=== PATIENT | male | born 1960 | race Caucasian/White ===

== ENCOUNTER 2020-08-22 10:18 | Outpatient (REF) | payer OTHER, SELFPAY ==
[2020-08-22 14:20] LABS: Alanine Aminotransferase 29 U/L (0-40); Albumin Level 4.3 g/dL (3.5-5.0); Alkaline Phosphatase 57 U/L (39-117); Anion Gap 13 (12-20); Aspartate Amino Transferase 23 U/L (5-37); Bilirubin Total 0.8 mg/dL (0.0-1.0); Blood Urea Nitrogen 8 mg/dL (9-16); Calcium 8.6 mg/dL (8.4-10.2); Carbon Dioxide 26 mmol/L (22-29); Chloride 103 mmol/L (96-108); Cholesterol 272 mg/dL; Estimated Glomerular Filt Rate > 60; Glucose Fasting 92 mg/dL (60-99); HDL Cholesterol 87 mg/dL; LDL Cholesterol Calculated 170 mg/dl; Potassium 4.1 mmol/l (3.3-5.1); Sodium 138 mmol/L (135-145); Total Protein 6.7 g/dL (6.5-8.0); Triglycerides 78 mg/dL
[2020-08-22 14:26] LABS: Creatinine Urine 36.71 mg/dL; Microalbumin Urine < 5.0 mg/L
[2020-08-22 14:36] LABS: PSA,Total (Free>4and<10) 0.44 ng/mL (0.00-4.00); TSH reflex Free T4 0.53 mIU/mL (0.32-4.0)
== END 2020-08-22 10:19 | disposition home or self-care (01) ==
LOC: HO.WFDLDS 10:18
PROVIDERS: PCP Family Medicine; Visit Provider Family Medicine
DX: Z00.00 Encounter for general adult medical examination without abnormal findings (principal); I10 Essential (primary) hypertension; E78.00 Pure hypercholesterolemia, unspecified; R03.0 Elevated blood-pressure reading, without diagnosis of hypertension; Z12.5 Encounter for screening for malignant neoplasm of prostate
CPT/HCPCS: 80053; 80061; 82043; 84153; 84443

== ENCOUNTER → 2020-12-19 10:41 | Outpatient (BNVA) | payer OTHER, SELFPAY | PROVIDERS: PCP Family Medicine; Visit Provider Nurse Practitioner Family ==

== ENCOUNTER → 2021-01-04 13:55 | Outpatient (REF) | payer OTHER, SELFPAY | LOC: HO.SL 13:55 | PROVIDERS: Visit Provider Nurse Practitioner Family | DX: Z13.89 Encounter for screening for other disorder (principal) ==

== ENCOUNTER 2021-01-27 21:28 | Emergency (ER) | payer OTHER, SELFPAY ==
[2021-01-27 21:32] VITALS: BP 142/97; PULSE 95; RESP 18; TEMP 36.9; O2SAT 93; BMI 25.8
[2021-01-27 22:00] VITALS: RESP 15; O2SAT 98
--- NOTE | 2021-01-27 23:04 | ED.ALCOHOL ---
HPI - Alcohol General Chief Complaint: ETOH/Substance Use Stated Complaint: etoh Time Seen by Provider: 01/27/21 22:56 Source: patient Mode of arrival: ambulatory Limitations: no limitations History of Present Illness HPI narrative: 60 years old male with chronic alcoholic problem, patient has been bingeing drinking alcohol for the past 3 days, family brought the patient to the emergency department seeking for help. Patient appear intoxicated during the interview, but patient declined depression or suicidal ideation. Related Data Home Medications Medication Instructions Recorded Confirmed fluoxetine 20 mg capsule 20 mg PO DAILY 10/03/20 12/19/20 trazodone 100 mg tablet 100 mg PO BEDTIME PRN 10/12/20 12/19/20 Previous Rx's Medication Instructions Recorded hydroxyzine pamoate 50 mg capsule 50 mg PO BID PRN 90 Days #180 cap 09/15/20 lisinopril 20 mg tablet 20 mg PO DAILY 90 Days #90 tab 09/15/20 hydrochlorothiazide 12.5 mg tablet 12.5 mg PO DAILY 90 Days #90 tab 10/03/20 sildenafil 50 mg tablet 50 mg PO DAILY PRN #4 tab 01/16/21 trazodone 100 mg tablet 100 mg PO BEDTIME PRN #30 tab 01/16/21 Allergies Allergy/AdvReac Type Severity Reaction Status Date / Time No Known Allergies Allergy Verified 11/17/20 14:03 [No Known Allergies*] Review of Systems Review of Systems: All other systems are reviewed and are negative Constitutional: Reports as per HPI and Reports no additional constitutional complaints Eyes: Reports as per HPI and Reports no additional eye complaints Reports system reviewed and no additional complaints, except as documented Cardiovascular: Reports as per HPI and Reports no additional cardiovascular complaints Respiratory: Reports as per HPI and Reports no additional respiratory complaints Gastrointestinal: Reports as per HPI and Reports no additional gastrointestinal complaints Genitourinary: Reports no additional female genitourinary complaints Musculoskeletal: Reports no additional musculoskeletal complaints Skin/Breast: Reports system reviewed and no additional complaints, except as docu Psychiatric: Reports no additional psychiatric complaints Endocrine: Reports no additional endocrine complaints Hematologic/Lymphatic: Reports no additional hematologic/lymphatic complaints Allergic/Immunologic: Reports no additional allergic/immunologic complaints Reports system reviewed and no additional complaints, except as documented and Reports Abnormal speech present [facility] Past Medical History Medical History No known health problems Surgical History No pertinent past surgical history Family History Family History Father HTN (hypertension) Cancer History of heart attack Mother No problems noted. Social History Social History Smoking Status: Never smoker Advance Directives: No Advance Directives Information Provided: No Physical Exam Vital Signs: Vital Signs: Last Vital Signs Temp 98.4 F 01/27/21 21:32 Pulse 95 01/27/21 21:32 Resp 18 01/27/21 21:32 BP 142/97 H 01/27/21 21:32 Pulse Ox 93 01/27/21 21:32 Body Mass Index 25.8 Vital signs have been reviewed as appeared to be correct. Blood pressure normal. Heart rate normal. Respiration rate normal. Temperature normal. Oxygen saturation normal. Appearance: Alert.. No acute distress. Head: Normal external exam. Normocephalic. Atraumatic. No Grimaldo signs noted. No raccoon eyes noted Eyes: PERRLA. EOMI. Conjunctiva and sclera normal. Eyelids normal. ENT: TM's Normal. Pharynx normal. Uvula midline. Moist mucous membranes. No trismus noted. No drooling noted. No muffled voice noted. Neck: Normal inspection. Neck supple. FROM. No adenopathy. Thyroid Normal. No meningeal signs. No neck mass noted. CVS: Normal heart rate and rhythm. Heart sound normal. No murmurs noted. Pulses normal throughout. Respiratory: No respiratory distress. Painless inspiration. Breath sounds normal. No wheezes/rales/rhonchi noted. Chest nontender. No accessory muscle usage noted or decreased air movement noted. Abdomen: Soft and nontender. Bowel sounds normal in all 4 quadrants. No distention noted. No organomegaly noted. No visible injury noted. Back: No CVA tenderness. Full range of motion noted. Skin: Skin warm and dry. Normal skin color. Normal skin turgor. No rashes/lesions/lacerations noted. Extremities: No lower extremity edema. Extremities exhibit normal range of motion. Extremities nontender. Neuro: No motor deficit. No sensory deficit. Reflexes normal. Discharge Plan Discharge Prescriptions: No Action trazodone 100 mg tablet 100 mg PO BEDTIME PRNRF: 0 trazodone 100 mg tablet 100 mg PO BEDTIME PRN (Reason: for insomnia) Qty: 30 RF: 0 sildenafil 50 mg tablet 50 mg PO DAILY PRN (Reason: sexual activity) Qty: 4 RF: 1 lisinopril 20 mg tablet 20 mg PO DAILY 90 Days Qty: 90 RF: 4 hydroxyzine pamoate 50 mg capsule 50 mg PO BID PRN (Reason: anxiety) 90 Days Qty: 180 RF: 2 fluoxetine [Prozac] 20 mg capsule 20 mg PO DAILY RF: 0 hydrochlorothiazide 12.5 mg tablet 12.5 mg PO DAILY 90 Days Qty: 90 RF: 2
[2021-01-27 23:33] LABS: Basophils Percent Auto 0.5 % (0-2); Eosinophils Absolute Auto 0.1 X10*3/uL (0.0-0.4); Eosinophils Percent Auto 2.2 % (0-4); Hematocrit 43.4 % (42-52); Hemoglobin 15.2 g/dl (14.0-18.0); Imm Gran Abs Auto 0.03 X10*3/uL (0.00-0.03); Imm Gran Pct Auto 0.5 % (0.0-0.4); Lymphocytes Absolute Auto 1.8 X10*3/uL (1.2-4.9); Lymphocytes Percent Auto 28.9 % (20-40); MANUAL DIFF FLAG NO; Mean Corpuscular Hemoglobin 30.3 pg (27.0-33.0); Mean Corpuscular Volume 86.6 fL (80-98); Mean Platelet Volume 8.4 fL (9.4-12.4); Monocytes Absolute Auto 0.3 X10*3/uL (0.1-1.2); Monocytes Percent Auto 4.8 % (2-11); Neutrophils Percent Auto 63.1 % (45-73); Platelet Count 269 X10*3/uL (160-400); Red Blood Count 5.01 X10*6/uL (4.60-5.80); Red Cell Distribution Width 14.8 % (11.0-16.0); White Blood Count 6.3 X10*3/uL (4.8-10.8)
[2021-01-28] VITALS (7 sets, daily range): BP systolic 138–166; BP diastolic 86–97; PULSE 15–89; RESP 14–18; TEMP 36.4–36.8; O2SAT 92–99
[2021-01-28 00:06] LABS: Alanine Aminotransferase 94 U/L (0-40); Albumin Level 4.5 g/dL (3.5-5.0); Alkaline Phosphatase 74 U/L (39-117); Anion Gap 24 (12-20); Aspartate Amino Transferase 146 U/L (5-37); Bilirubin Direct 0.4 mg/dL (0.0-0.5); Bilirubin Total 0.8 mg/dL (0.0-1.0); Blood Urea Nitrogen 19 mg/dL (9-16); Calcium 7.9 mg/dL (8.4-10.2); Carbon Dioxide 19 mmol/L (22-29); Chloride 94 mmol/L (96-108); Creatinine Clr Calc Pharmacy 117.6; Estimated Glomerular Filt Rate > 60; Glucose Random 103 mg/dL (60-115); Magnesium 2.4 mg/dL (1.6-2.6); Potassium 4.3 mmol/L (3.3-5.1); Sodium 133 mmol/L (135-145); Total Protein 7.4 g/dL (6.5-8.0)
[2021-01-28 00:30] LABS: Lipase 78 U/L (8-78)
[2021-01-28] MEDS: 0.9 % Sodium Chloride 1,000 ML 999 ML IVCONT ×3 (01:04→05:16)
[2021-01-28] MEDS: Thiamine HCL 200 MG/2 ML VIAL 100 MG IVPUSH (01:05)
--- NOTE | 2021-01-28 07:38 | PC.NURSE ---
Linda Ann - - [phone] Pt's states she spoke with Someone at [facility] for detox, Gave contact number from [facility] for a patient assessment when the patient is more alert. .
[2021-01-28 07:43] LABS: Anion Gap 19 (12-20); Blood Urea Nitrogen 15 mg/dL (9-16); Calcium 7.2 mg/dL (8.4-10.2); Carbon Dioxide 19 mmol/L (22-29); Chloride 100 mmol/L (96-108); Creatinine Clr Calc Pharmacy 139.5; Estimated Glomerular Filt Rate > 60; Glucose Random 124 mg/dL (60-115); Potassium 3.7 mmol/L (3.3-5.1); Sodium 134 mmol/L (135-145)
[2021-01-28 09:19] LABS: Ethanol 148 mg/dL
[2021-01-28] MEDS: LORazepam 1 MG TABLET 2 MG PO (12:02)
--- NOTE | 2021-01-28 12:05 | MHC.CARE ---
[place] [facility] [place] around 9pm with reported c/o seeking ETOH detox. Pt has [email or web address] insurance and was held in order to be seen by CARE team. Pt was seen by CARE team this morning due to not having been seen last night. CARE asked for BAL to be drawn also. At 0845 pts BAL was 148. Interview commenced. Pt was somewhat guarded about his goal for tx and was uncertain if he wanted to seek tx. After interview pt stated he as willing to seek formal help via detox tx for his ETOH dependence. Pt stated his (soon to be ex-) has been helping him seek referral for tx and has made him seek tx in the past. Pt stated he feels conflicted and wants to continue to go to work but also is seeing that his life has been impacted greatly by his ETOH dependence. Pts called the ED and provided contact for Sandor (c/o Jama) who is aware of his interest in detox/tx. T/w called Sandor العراقي/o Jama at [phone] phone and fax [phone]) and arranged for phone interview w pt. Pt was provided a phone and interview completed. Due to pts insurance [facility] not able to secure an auth for pt on weekend day, Sandor reported pt can resume this tomorrow morning and pursue tx when they can speak with insurance. Pt can call [facility] himself or ED staff can. Pt was provided a list of referrals for other programs and resources if he wishes to pursue. Pts plan to dc or remain will be based on pts medical necessity.
[2021-01-28] MEDS: ondansetron HCL 4 MG/2 ML VIAL IVPUSH (13:17)
[2021-01-28] MEDS: LORazepam 2 MG/ML VIAL IVPUSH (13:17)
--- NOTE | 2021-01-28 14:40 | PC.NURSE ---
Pt states he is feeling much better at this time. Verbalizes understanding of discharge instructions.
== END 2021-01-28 14:41 | disposition home or self-care (01) ==
PROVIDERS: Nurse Practitioner Family; Emergency Provider Emergency Medicine
DX: F10.220 Alcohol dependence with intoxication, uncomplicated (principal); F10.239 Alcohol dependence with withdrawal, unspecified; Y90.6 Blood alcohol level of 120-199 mg/100 ml; I10 Essential (primary) hypertension
CPT/HCPCS: 36415; 80048; 80076; 80320; 83690; 83735; 85025; 96361; 96374; 96375; 99285; J2060; J2405; J3411

== ENCOUNTER 2021-05-09 08:37 | Outpatient (REF) | payer OTHER, SELFPAY ==
--- NOTE | ~2021-05-09 | US_ITS ---
EXAMINATION: US PELVIS, LIMITED/FOLLOW UP CLINICAL INFORMATION: Inguinal hernia COMPARISON: None TECHNIQUE: Grayscale and color imaging of the left inguinal region using a linear transducer FINDINGS: No hernia is appreciated by ultrasound. There is a small left inguinal lymph node. This measures 2.5 x 0.5 x 0.7 cm sagittal, AP and transverse dimension. This demonstrates normal ultrasound morphology and flow. US/US pelvic limited IMPRESSION: No hernia appreciated by ultrasound.
== END 2021-05-09 08:38 | disposition home or self-care (01) ==
LOC: HO.US 08:37
PROVIDERS: PCP Family Medicine; Visit Provider Family Medicine
DX: K40.90 Unilateral inguinal hernia, without obstruction or gangrene, not specified as recurrent (principal)
CPT/HCPCS: 76857

== ENCOUNTER → 2021-05-14 12:08 | Outpatient (REF) | payer OTHER, SELFPAY | LOC: HO.SL 12:08 | PROVIDERS: PCP Family Medicine; Visit Provider Nurse Practitioner Family | DX: G47.9 Sleep disorder, unspecified (principal); F41.9 Anxiety disorder, unspecified; I10 Essential (primary) hypertension | CPT/HCPCS: 95806 ==

== ENCOUNTER → 2021-05-18 08:43 | Outpatient (BNVA) | payer OTHER, SELFPAY | PROVIDERS: PCP Family Medicine; Referring Provider Family Medicine; Visit Provider Surgery ==

== ENCOUNTER 2021-10-13 11:22 | Outpatient (REF) | payer OTHER, SELFPAY ==
--- NOTE | ~2021-10-13 | XR_ITS ---
EXAMINATION: XR CHEST CLINICAL INFORMATION: Cough. COMPARISON: None TECHNIQUE: 2 views of the chest were obtained. FINDINGS: No significant abnormality is noted involving the heart, lungs, mediastinum, bony thorax or soft tissues. XR/XR chest 2V IMPRESSION: Unremarkable chest examination.
[2021-10-13 13:19] LABS: Anion Gap 15 (12-20); Blood Urea Nitrogen 11 mg/dL (9-16); Calcium 9.3 mg/dL (8.4-10.2); Carbon Dioxide 25 mmol/L (22-29); Chloride 97 mmol/L (96-108); Estimated Glomerular Filt Rate > 60; Glucose Random 94 mg/dL (60-115); Potassium 3.8 mmol/L (3.3-5.1); Sodium 133 mmol/L (135-145)
[2021-10-13 13:23] LABS: Hematocrit 41.8 % (42.0-52.0); Mean Corpuscular HGB Conc 33.5 g/dl (31.0-36.0); Mean Corpuscular Hemoglobin 30.9 pg (27.0-33.0); Mean Corpuscular Volume 92.3 fL (80.0-98.0); Mean Platelet Volume 9.4 fL (9.4-12.4); Platelet Count 186 X10*3/uL (160-400); Red Blood Count 4.53 X10*6/uL (4.60-5.80); Red Cell Distribution Width 14.3 % (11.0-16.0); White Blood Count 5.5 X10*3/uL (4.8-10.8)
== END 2021-10-13 11:23 | disposition home or self-care (01) ==
LOC: HO.HMGCLDS 11:22
PROVIDERS: Visit Provider Physician Assistant
DX: R05.9 Cough, unspecified (principal)
CPT/HCPCS: 36415; 71046; 80048; 85027

== ENCOUNTER 2021-10-13 13:37 | Outpatient (REF) | payer OTHER, SELFPAY ==
[2021-10-13 14:52] LABS: Influenza A PCR NEGATIVE (Negative); Influenza B PCR NEGATIVE (Negative); Resp Syncy Virus RNA Qual PCR NEGATIVE (Negative); SARS COV2 PCR INHOUSE POSITIVE (Negative)
== END 2021-10-13 13:38 | disposition home or self-care (01) ==
LOC: HO.LNP 13:37
PROVIDERS: Visit Provider Physician Assistant
DX: R05.9 Cough, unspecified (principal); Z20.822 Contact with and (suspected) exposure to COVID-19
CPT/HCPCS: 0241U

== ENCOUNTER 2024-01-14 23:15 | Inpatient (IN) | payer OTHER, SELFPAY ==
--- NOTE | ~2024-01-14 | XR_ITS ---
EXAMINATION: XR CHEST CLINICAL INFORMATION: Shortness of breath COMPARISON: Chest radiograph 10/13/2021 CT angiogram of the head and neck at 11:37 PM TECHNIQUE: Frontal view of the chest was obtained. FINDINGS: Heart size upper limits of normal. The aorta is dilated and unfolded. At least on the lowest slice of the CT neck, the ascending aorta measures about 4.3 cm. No aortic dissection is seen on the CT scan. The lungs are clear without infiltrates, effusions or evidence of CHF. XR/XR chest 1V IMPRESSION: 1. No acute intrathoracic disease. 2. Dilated aorta.
--- NOTE | ~2024-01-14 | MR_ITS ---
EXAMINATION: MR BRAIN WITHOUT CONTRAST CLINICAL INFORMATION: Right-sided facial droop. Speech difficulty. COMPARISON: CTA head and neck from 01/14/2024. TECHNIQUE: MRI of the brain was obtained using routine sequences without contrast. FINDINGS: No focal restricted diffusion is demonstrated to suggest acute or subacute cerebral ischemia. No evidence of acute hemorrhagic products on heme-sensitive imaging. Small focus of susceptibility artifact in the paracentral aspect of the left parietal lobe suggestive of petechial microhemorrhage. Scattered periventricular and deep white matter T2 FLAIR hyperintensities consistent with mild underlying microangiopathy. Proportional prominence of the ventricles and sulcal spaces without evidence of obstructive hydrocephalus. No abnormal mass effect. No midline shift. Normal appearance of the pituitary gland. Normal positioning of the cerebellar tonsils. Normal arterial and venous vascular flow voids are present. Normal, homogeneous marrow signal. Mild mucosal thickening of the paranasal sinuses. No signal abnormalities within the mastoids. MR/MR head/brain wo con IMPRESSION: 1. No acute intracranial abnormalities. 2. Mild underlying microangiopathy and generalized cerebral volume loss.
--- NOTE | ~2024-01-14 | US_ITS ---
EXAMINATION: US ABDOMEN LIMITED CLINICAL INFORMATION: Alcohol abuse, elevated LFT. COMPARISON: Abdominal ultrasound 08/24/2010 TECHNIQUE: Real-time imaging of the right upper quadrant abdominal viscera. FINDINGS: PANCREAS: Pancreas was obscured by bowel gas and could not be evaluated LIVER: The liver is enlarged measuring 20.6 cm in greatest length with coarse increased echogenicity consistent with hepatic steatosis. In 2010, liver echogenicity was mildly increased. Portal vein is patent with hepatopedal flow. The liver contour is normal. No focal hepatic lesion. There is no intrahepatic biliary duct dilatation seen. GALLBLADDER: The gallbladder is quite distended without evidence of stones, polyps, wall thickening or pericholecystic fluid. Some gravity dependent echogenic bile is present. COMMON BILE DUCT: Normal in caliber measuring 0.7 cm in diameter. RIGHT KIDNEY: Normal. No hydronephrosis. No renal calculi or focal parenchymal lesions. The kidney measures 12.6 cm in maximum dimension. FREE FLUID: None. US/US abdomen limited IMPRESSION: Enlarged fatty liver.
--- NOTE | ~2024-01-14 | CT_ITS ---
EXAMINATION: CT ANGIOGRAM HEAD CT ANGIOGRAM NECK CLINICAL INFORMATION: Reason for Exam right sided weakness COMPARISON: Same day noncontrast head CT TECHNIQUE: Initial noncontrast mill oiler imaging of the head and neck was performed. Comparison is made with noncontrast head CT from earlier today. Test bolus sequences followed by intravenous administration 75 mL of Omnipaque 350. Helical imaging was performed in the axial plane from the aortic arch to the skull vertex. Delayed postcontrast imaging of the head was also performed. The data was processed at the cytotechnologist workstation for generation of MIP sequences. Angled MIPs and volume rendered reformatted images were also generated at an offline 3D workstation. Stenoses are assessed in accordance with NASCET criteria unless otherwise indicated. DLP: 1626.31 mGy-cm This CT examination was performed using dose optimization techniques as appropriate, variously including the following: *Automated exposure control. *Adjustment of mA and/or kV according to patient size (this includes techniques or standardized protocols for targeted exams where dose is matched to indication/reason for exam; i.e. extremities or head). *Use of iterative reconstruction technique. FINDINGS: CT Head: There is no evidence of acute intracranial hemorrhage or edematous territorial infarction. A few foci of hypoattenuation in the periventricular and deep white matter are consistent with mild microangiopathy. [place]-white matter differentiation is preserved. The ventricles are normal in size and configuration. No evidence for obstructive hydrocephalus. No abnormal mass effect or midline shift. No extra-axial fluid collections. No pathologic intra-axial enhancement or regional oligemia. No acute soft tissue or osseous abnormalities. The mastoid air cells and paranasal sinuses are clear. There is a defect in the anterior nasal septum. CT Neck: The thyroid gland and remaining cervical soft tissues are within normal limits. Multilevel cervical spondylosis. CT Upper Chest: The visualized lung apices and upper mediastinum are within normal limits. There is some layering debris in the trachea. Neck CTA: Technically limited CTA of the neck secondary to motion artifact which obscures portions of the carotid and vertebral arteries. Aortic Arch: Normal contour and caliber. Classic 3 vessel branching pattern of the aortic arch. Great Vessel Origins: No significant stenosis of the branch origins. Right Common Carotid Artery: No focal stenosis or occlusion. Cervical Right Internal Carotid Artery: Normal opacification without focal stenosis or occlusion. Left Common Carotid Artery: No focal stenosis or occlusion. Cervical Left Internal Carotid Artery: Calcific atherosclerotic disease of the carotid bulb and proximal internal carotid artery causing less than 50% stenosis. Cervical Right Vertebral Artery: No focal stenosis or occlusion. Cervical Left Vertebral Artery: Dominant. No focal stenosis or occlusion. Brain CTA: Intracranial Internal Carotid Arteries: No focal stenosis or occlusion. Right Anterior Cerebral Artery: Normal A1 segment. Normal opacification of the distal TRINA segments. Left Anterior Cerebral Artery: Normal A1 segment. Normal opacification of the distal TRINA segments. Anterior Communicating Artery: Normal. Right Middle Cerebral Artery: Normal M1 segment of the MCA without focal stenosis or occlusion. Normal arborization of the distal segments. Left Middle Cerebral Artery: Normal M1 segment of the MCA without focal stenosis or occlusion. Normal arborization of the distal segments. Right Vertebral Artery: Normal V4 segment. Left Vertebral Artery: Normal V4 segment. Basilar Artery: Normal without focal stenosis or occlusion. Normal appearance of the proximal superior cerebellar arteries. Right Posterior Cerebral Artery: Normal P1 segment. Normal opacification of the distal [employer] segments. Left Posterior Cerebral Artery: Normal P1 segment. Normal opacification of the distal [employer] segments. Normal opacification of the superior sagittal, straight, transverse, and sigmoid sinuses. CT/CT angio head neck stroke IMPRESSION: 1. Technically limited CTA of the neck secondary to motion artifact which obscures portions of the carotid and vertebral arteries. Within this limitation, no significant arterial narrowing in the neck is identified. 2. No intracranial arterial high-grade stenosis or large vessel occlusion. Above impression was communicated to Dr. Swift on 01/15/2024 12:12 AM
--- NOTE | ~2024-01-14 | CT_ITS ---
EXAMINATION: CT HEAD WITHOUT CONTRAST (STROKE PROTOCOL) CLINICAL INFORMATION: Stroke protocol. Right-sided weakness. COMPARISON: None available. TECHNIQUE: Contiguous axial imaging was performed from the skull base to vertex without intravenous administration of contrast. This CT examination was performed using dose optimization techniques as appropriate, variously including the following: *Automated exposure control *Adjustment of mA and/or kV according to patient size (this includes techniques or standardized protocols for targeted exams where dose is matched to indication/reason for exam; i.e. extremities or head) *Use of iterative reconstruction technique DLP: 778 mGy-cm FINDINGS: There is cerebral volume loss with prominence of the lateral and the third ventricles. The cortical sulci are widened appropriately. The fourth ventricle and basal cisterns are normally outlined. There is mild bilateral periventricular and central white matter diminished attenuation. There is no acute territorial defect, hemorrhage or midline shift. The extra-axial spaces are unremarkable. Calvarium: Intact. Maxillofacial sinuses and mastoids: Clear as visualized. CT/CT head for stroke IMPRESSION: 1. No acute intracranial process seen. 2. Mild cerebral volume loss with mild chronic small vessel ischemic changes. This critical result was discussed with Dr. Alee Swift at 11:44 PM hours on 01/14/2024. It was ascertained that the content and urgency of the report was understood at the time of direct communication.
[2024-01-14 23:26] LABS: Glucose, Whole Blood 121 mg/dL (60-115)
--- NOTE | 2024-01-14 23:31 | ED_ITS ---
HPI - Neuro Symptoms/Deficit General Chief Complaint: Stroke Stated Complaint: stroke? Time Seen by Provider: 01/14/24 23:18 History of Present Illness HPI Narrative: Patient is a 63-year-old male with a history of alcohol abuse. History of hypertension. History of transient global amnesia. No fever no chills. Patient was drinking at a bar. Was noted to slump over question right-sided weakness change in speech just prior to arrival in the emergency department. Time of onset is proximally 10 30. Patient unable to speak in detail. Appear grossly intoxicated. Moving arms and legs. Related Data Previous Rx's Medication Instructions Recorded sildenafil 50 mg tablet 50 mg PO DAILY PRN sexual activity 01/16/21 #4 tabs fluoxetine 20 mg capsule (Prozac) 20 mg PO DAILY 90 days #90 caps 02/15/21 lisinopril 20 mg tablet 30 mg (1.5 x 20 mg) PO DAILY 90 03/27/21 days #135 tabs azithromycin 250 mg tablet See Rx Instructions PO .COMPLEX #6 10/13/21 tabs benzonatate 200 mg capsule 200 mg PO BID PRN cough 4 days #8 10/13/21 caps codeine 10 mg-guaifenesin 100 mg/5 5 ml PO BEDTIME PRN allergy 10/13/21 mL oral liquid symptoms 5 days #118 mL trazodone 100 mg tablet 100 mg PO BEDTIME PRN for insomnia 11/27/21 #30 tabs Allergies Allergy/AdvReac Type Severity Reaction Status Date / Time No Known Allergies Allergy Verified 01/14/24 23:44 [No Known Allergies*] Review of Systems 2 Review of Systems: Unable to obtain detailed review of systems secondary patient's condition [facility] Past Medical History Medical History No known health problems Surgical History History of umbilical hernia repair Family History Family History Father HTN (hypertension) Cancer History of heart attack Mother No problems noted. Social History Social History Housing: House Alcohol intake: current Alcohol intake frequency: a few times a week Patient Tobacco Use Status: Never used Tobacco Smoked in Last 30 Days: No Use of substances other than those prescribed or required for medical reasons: No Advance Directives: No Advance Directives Information Provided: Yes Current occupational status: retired Physical Exam 2 Vital Signs: Vital Signs: Last Vital Signs Temp 97.8 F 01/15/24 00:41 Pulse 80 01/15/24 00:41 Resp 17 01/15/24 00:41 BP 134/77 01/15/24 00:41 Pulse Ox 96 01/15/24 00:41 O2 Del Method Room Air 01/15/24 00:41 BMI result Body Mass Index 24.9 Appearance: Alert. Oriented X3. No acute distress. Eyes: Pupils equal, round and reactive to light. ENT: Pharynx normal. Neck: Normal inspection. Neck supple. No lymph nodes noted. No crepitus CVS: Normal heart rate and rhythm. Pulses normal. Normal S1 and S2 Respiratory: No respiratory distress. Breath sounds normal. No Wheezing. No rales Abdomen: Soft and nontender. No rigidity. No distention. good BS x4 Skin: Skin warm and dry. Normal skin color. Normal skin turgor. Extremities: No lower extremity edema. Neurovascular intact to all extremities. No Lacerations. No Rash Neuro: Oriented X 3. No motor deficit. No sensory deficit. Moving all extermities. No slurred speech Medications Administered Discontinued Medications Generic Name Dose Route Start Last Admin Trade Name Freq PRN Reason Stop Dose Admin Iohexol 75 ml 01/15/24 00:00 01/15/24 00:00 Iohexol 350 Mg/Ml 100 Ml Infus..Btl IV 01/15/24 00:01 75 ml ONCE ONE Administration Medical Decision Making Medical Decision Making MDM Narrative: Patient well-appearing. Neurologically intact. In no acute distress. Grossly appeared intoxicated. There is no focal weakness appreciated at this time. Patient's old record reviewed. Long history of EtOH in the past. Patient had right-sided weakness that was noticed by EMS noticed by bystander at the bar. Glucose was over 100 there has no evidence for hypoglycemia. My interpretation patient's CT scan of the head was grossly negative for any acute evidence of bleeding. CTA of the head and neck is pending. CTA of the head and neck was grossly negative for any large vessel occlusion. Patient's alcohol level was over 400. He was observed initially with right- sided weakness. Question TIA. He has not in any acute distress. He is moving all extremity at this point. Patient is able to speak. Symptoms more likely related to alcohol. Can not exclude the possibility of TIA. Patient to be admitted for further evaluation. Differential Diagnosis Differential Diagnoses: The differential diagnosis associated with the presentation includes Intracranial bleed, mass, ischemic stroke, TIA, alcohol intoxication Admission/Observation Consideration of admission/observation: Escalation of care including admission/observation considered Consult Healthcare Provider Management of the patient was discussed with: Hospitalist Lab Data [facility] Lab Attestation statement: I reviewed the patient's lab results. 01/15/24 00:18 01/15/24 00:18 Labs: Lab Results 01/14/24 01/15/24 Range/Units 23:18 00:18 WBC 3.4 L (4.8-10.8) X10*3/uL RBC 4.17 L (4.60-5.80) X10*6/uL Hgb 13.5 L (14.0-18.0) g/dl Hct 38.2 L (42.0-52.0) % MCV 91.6 (80.0-98.0) fL MCH 32.4 (27.0-33.0) pg MCHC 35.3 (31.0-36.0) g/dl RDW 13.2 (11.0-16.0) % Plt Count 97 L D (160-400) X10*3/uL MPV 9.5 (9.4-12.4) fL Immature Gran % (Auto) 0.3 (0.0-0.4) % Neut % (Auto) 39.2 L (45-73) % Lymph % (Auto) 50.9 H (20-40) % [place] % (Auto) 7.8 (2-11) % Eos % (Auto) 0.3 (0-4) % Baso % (Auto) 1.5 (0-2) % Lymph # (Auto) 1.8 (1.2-4.9) X10*3/uL [place] # (Auto) 0.3 (0.1-1.2) X10*3/uL Eos # (Auto) 0.0 (0.0-0.4) X10*3/uL Baso # (Auto) 0.1 (0.0-0.2) X10*3/uL Abs Immat Gran (auto) 0.01 (0.00-0.03) X10*3/uL Absolute Neuts (auto) 1.4 L (2.0-8.3) x10*3/uL Absolute Nucleated RBC 0.000 (0.0-0.012) X10*3/uL Nucleated RBC % (auto) 0.0 (0.0-0.2) /100WBC PT 11.6 (11.1-13.3) SEC INR 1.0 (0.9-1.1) APTT 34.5 (26.0-36.8) SEC Sodium 132 L (135-145) mmol/L Potassium 3.6 (3.3-5.1) mmol/L Chloride 98 (96-108) mmol/L Carbon Dioxide 19 L (22-29) mmol/L Anion Gap 19 (12-20) BUN 6 L (9-16) mg/dL Creatinine 0.61 (0.5-1.4) mg/dL Estim Creat Clear Calc 154.1 Estimated GFR > 60 POC Glucose 121 H (60-115) mg/dL Random Glucose 101 (60-115) mg/dL Calcium 8.3 L D (8.4-10.2) mg/dL Phosphorus 3.7 (2.7-4.5) mg/dL Magnesium 2.0 (1.6-2.6) mg/dL Total Creatine Kinase 106 (38-174) U/L Troponin I High Sens < 2.7 (<3.5-35.0) ng/L TSH 1.42 (0.32-4.0) uIU/mL Ethyl Alcohol 469 H* mg/dL Independent Interpretation I performed an independent interpretation of an: EKG and CT Scan (CT scan of the head was grossly negative for any acute evidence of bleeding. CTA of the head and neck was negative for any large vessel occlusion.) Radiology Impression Discussion of test interpretation with radiology: I discussed test interpretation with the radiologist and I have reviewed the radiologist's reading. Radiologist Impression: I discussed the CT scan of the head and also CTA of the head and neck with the radiologist. External Record Review External record reviewed: Inpatient record Previous neurology records reviewed Chronic Conditions Patient?s care impacted by: Hypertension Long history of alcohol abuse Social Determinants Patient?s care significantly limited by Social Determinants of Health including: Alcoholism and drug addiction in family NIH Stroke Scale Internal: Initial- Upon Arrival Time: 23:32 Level of Consciousness: Alert Level of Consciousness Questions: Answers both questions correctly Level of Consciousness Commands: Performs both tasks correctly Best Gaze: Normal Visual: No visual loss Facial Palsy: Normal Motor Arm (Right): No drift Motor Arm (Left): No drift Motor Leg (Right): No drift Motor Leg (Left): No drift Limb Ataxia: Absent Sensory: Normal Best Language: No aphasia Dysarthia: Normal Extinction and Inattention: No abnormality Score: 0 Critical Care Time Critical Care Time Critical Care Time: Yes Total Critical Care Time: 40 Attestation: I have personally provided 40 minutes of critical care time exclusive of time spent on separately billable procedures. ?Time includes review of lab data, radiology results, discussion with consultants, and monitoring for potential decompensation. ?Interventions were performed as documented above Discharge Plan Discharge Clinical Impression: Alcohol intoxication, Brain TIA Patient Disposition: Admitted As Inpatient
[2024-01-14 23:44] VITALS: BP 136/85; PULSE 80; PULSE 89; RESP 20; TEMP 36.6; O2SAT 95; BMI 24.9
--- NOTE | 2024-01-14 23:50 | PC.NURSE ---
pt asim from local bar presenting with stroke like symptoms. pt noted to have slight right sided facial droop and being non verbal upon ems arrival to scene. upon arrival, pt stopped at CT, at bedside to assess pt. pt notably weak x4 extremities, unable to speak. upon entering CT, pt reports he had multiple drinks at the bar. pt taken to CT and CT preformed. EMS placed bilateral 18G IVs. pt alert and answering questions for this RN at this time. pt unable to state where he is but is able to state name and date of .
[2024-01-15] VITALS (9 sets, daily range): BP systolic 97–150; BP diastolic 70–95; PULSE 68–101; RESP 12–20; TEMP 36.4–37; O2SAT 92–97; BMI 23.6
[2024-01-15] MEDS: iohexoL 350 MG/ML 100 ML INFUS..BTL 75 ML IV
[2024-01-15 00:22] LABS: MANUAL DIFF FLAG NO
[2024-01-15 00:26] LABS: Basophils Absolute Auto 0.1 X10*3/uL (0.0-0.2); Basophils Percent Auto 1.5 % (0-2); Eosinophils Percent Auto 0.3 % (0-4); Hematocrit 38.2 % (42.0-52.0); Hemoglobin 13.5 g/dl (14.0-18.0); Imm Gran Abs Auto 0.01 X10*3/uL (0.00-0.03); Imm Gran Pct Auto 0.3 % (0.0-0.4); Lymphocytes Absolute Auto 1.8 X10*3/uL (1.2-4.9); Lymphocytes Percent Auto 50.9 % (20-40); Mean Corpuscular HGB Conc 35.3 g/dl (31.0-36.0); Mean Corpuscular Hemoglobin 32.4 pg (27.0-33.0); Mean Corpuscular Volume 91.6 fL (80.0-98.0); Mean Platelet Volume 9.5 fL (9.4-12.4); Monocytes Absolute Auto 0.3 X10*3/uL (0.1-1.2); Monocytes Percent Auto 7.8 % (2-11); Neutrophils Absolute Auto 1.4 x10*3/uL (2.0-8.3); Neutrophils Percent Auto 39.2 % (45-73); Red Blood Count 4.17 X10*6/uL (4.60-5.80); Red Cell Distribution Width 13.2 % (11.0-16.0); White Blood Count 3.4 X10*3/uL (4.8-10.8)
[2024-01-15 00:29] LABS: Platelet Count 97 X10*3/uL (160-400)
[2024-01-15 00:35] LABS: Prothrombin Time 11.6 SEC (11.1-13.3)
[2024-01-15 00:37] LABS: Partial Thromboplastin Time 34.5 SEC (26.0-36.8)
[2024-01-15 00:42] LABS: Stroke Lab Use COMPLETE
[2024-01-15 00:50] LABS: Anion Gap 19 (12-20); Blood Urea Nitrogen 6 mg/dL (9-16); Calcium 8.3 mg/dL (8.4-10.2); Carbon Dioxide 19 mmol/L (22-29); Chloride 98 mmol/L (96-108); Creatinine Clr Calc Pharmacy 154.1; Estimated Glomerular Filt Rate > 60; Ethanol 469 mg/dL; Glucose Random 101 mg/dL (60-115); Phosphorus 3.7 mg/dL (2.7-4.5); Potassium 3.6 mmol/L (3.3-5.1); Sodium 132 mmol/L (135-145)
[2024-01-15 00:53] LABS: Troponin-I High Sensitivity < 2.7 ng/L (<3.5-35.0)
[2024-01-15 01:04] LABS: Thyroid Stimulating Hormone 1.42 uIU/mL (0.32-4.0)
--- NOTE | 2024-01-15 01:09 | ECG_ITS ---
Test Reason : CP Blood Pressure : / mmHG Vent. Rate : 087 BPM Atrial Rate : 087 BPM P-R Int : 136 ms QRS Dur : 084 ms QT Int : 380 ms P-R-T Axes : 119 -11 019 degrees QTc Int : 457 ms Normal sinus rhythm Nonspecific T wave abnormality Abnormal ECG When compared with ECG of 17-AUG-2010 08:45, ST no longer elevated in Anterolateral leads Nonspecific T wave abnormality, worse in Inferior leads Nonspecific T wave abnormality now evident in Anterolateral leads Referred By: Alee Swift Electronically Signed By:MONROE CHAVARRIA
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
[2024-01-15] MEDS: Dextrose 5 % and 0.9 % NaCl 1,000 ML 100 ML IVCONT ×2 (02:49→15:15)
--- NOTE | 2024-01-15 02:53 | PC.NURSE ---
pt standing at bedside with steady gait, pt denies dizziness, shortness of breath and pain. urine sample obtained and sent to lab.
[2024-01-15 02:59] LABS: Alanine Aminotransferase 133 U/L (0-40); Albumin Level 3.5 g/dL (3.5-5.0); Alkaline Phosphatase 180 U/L (39-117); Aspartate Amino Transferase 271 U/L (5-37); Bilirubin Direct 0.6 mg/dL (0.0-0.5); Bilirubin Total 0.9 mg/dL (0.0-1.0); Total Protein 6.9 g/dL (6.5-8.0)
[2024-01-15] MEDS: 0.9 % Sodium Chloride 500 ML 999 ML IV (03:04)
[2024-01-15 03:05] LABS: Appearance Urine Clear; Color Urine Yellow; Glucose Urine UA Negative (Negative); Leukocyte Esterase Urine Negative (Negative); Nitrite Urine Negative (Negative); Urine Blood Negative (Negative); Urine Ketones Trace mg/dL (Negative); Urine Protein Negative (Neg-Trace)
[2024-01-15 03:13] LABS: Amphetamine Screen Urine Not Detected (Not Detect); Barbiturates, Urine Not Detected (Not Detect); Benzodiazepines Screen Urine Not Detected (Not Detect); Cannabinoid Screen Urine Not Detected (Not Detect); Cocaine Screen Urine Not Detected (Not Detect); Fentanyl, urine Not Detected (Not Detect); Opiate Screen Urine Not Detected (Not Detect); Phencyclidine Screen Urine Not Detected (Not Detect)
[2024-01-15] MEDS: Aspirin Enteric Coated 81 MG TABLET.DR 162 MG PO (03:13)
--- NOTE | 2024-01-15 03:15 | PC.NURSE ---
pt pass nursing swallow screen at this time. pt medicated per dec, tolerated well with water.
--- NOTE | 2024-01-15 04:38 | PC.NURSE ---
provider aware of blood pressure, no new orders at this time.
[2024-01-15 05:26] LABS: MANUAL DIFF FLAG NO
[2024-01-15 05:28] LABS: Basophils Absolute Auto 0.1 X10*3/uL (0.0-0.2); Basophils Percent Auto 1.5 % (0-2); Eosinophils Percent Auto 0.3 % (0-4); Hematocrit 37.4 % (42.0-52.0); Hemoglobin 12.9 g/dl (14.0-18.0); Imm Gran Abs Auto 0.01 X10*3/uL (0.00-0.03); Imm Gran Pct Auto 0.3 % (0.0-0.4); Lymphocytes Absolute Auto 1.8 X10*3/uL (1.2-4.9); Lymphocytes Percent Auto 53.4 % (20-40); Mean Corpuscular HGB Conc 34.5 g/dl (31.0-36.0); Mean Corpuscular Volume 92.8 fL (80.0-98.0); Mean Platelet Volume 9.3 fL (9.4-12.4); Monocytes Absolute Auto 0.3 X10*3/uL (0.1-1.2); Monocytes Percent Auto 7.4 % (2-11); Neutrophils Absolute Auto 1.3 x10*3/uL (2.0-8.3); Neutrophils Percent Auto 37.1 % (45-73); Red Blood Count 4.03 X10*6/uL (4.60-5.80); Red Cell Distribution Width 13.2 % (11.0-16.0); White Blood Count 3.4 X10*3/uL (4.8-10.8)
[2024-01-15 05:29] LABS: Platelet Count 82 X10*3/uL (160-400)
[2024-01-15 05:46] LABS: Alanine Aminotransferase 126 U/L (0-40); Albumin Level 3.4 g/dL (3.5-5.0); Alkaline Phosphatase 160 U/L (39-117); Anion Gap 18 (12-20); Aspartate Amino Transferase 249 U/L (5-37); Bilirubin Total 0.8 mg/dL (0.0-1.0); Blood Urea Nitrogen 6 mg/dL (9-16); Calcium 8.1 mg/dL (8.4-10.2); Carbon Dioxide 23 mmol/L (22-29); Chloride 102 mmol/L (96-108); Creatinine Clr Calc Pharmacy 144.6; Estimated Glomerular Filt Rate > 60; Glucose Random 91 mg/dL (60-115); Potassium 3.9 mmol/L (3.3-5.1); Sodium 139 mmol/L (135-145); Total Protein 6.7 g/dL (6.5-8.0)
[2024-01-15 07:15] LABS: Glucose, Whole Blood 91 mg/dL (60-115)
[2024-01-15] MEDS: Folic Acid 1 MG TABLET PO (08:11)
[2024-01-15] MEDS: Multivitamin TABLET 1 TAB PO (08:11)
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
--- NOTE | 2024-01-15 08:38 | PHA.MEDREC ---
Pharmacy Consult ? Medication Reconciliation Pharmacy has completed the medication reconciliation. Tried to call patients Son but voicemail box is full. Spoke to patient who stated he is on no medications which matches with his empty claim history.
--- NOTE | 2024-01-15 09:34 | P.PNIM_ITS ---
Subjective Subjective Date of Service: 01/15/24 Interval History: no focal motor deficit, feeling jittery Physical Exam 2 Vital Signs: Vital Signs: Last Vital Signs Temp 97.6 F 01/15/24 08:10 Pulse 68 01/15/24 08:10 Resp 16 01/15/24 08:10 BP 137/92 H 01/15/24 08:10 Pulse Ox 97 01/15/24 08:10 O2 Del Method Room Air 01/15/24 08:10 BMI result Body Mass Index 24.9 General: AO X 3, no acute distress, anxious Resp: CTA bilateral, no accessory muscles used CVS: S1,S2,RRR GI: soft, non tender, non distended Neuro: motor grossly intact, alert, tremulous Psych: appropriate affect, appropriate insight Objective Data Active Medications Aspirin (Aspirin Enteric Coated 81 Mg Tablet.Dr) 81 mg PO DAILY [facility] Folic Acid (Folic Acid 1 Mg Tablet) 1 mg PO DAILY [facility] Last Admin: 01/15/24 08:11 Dose: 1 mg Documented By: DOROTHEA Dextrose/Sodium Chloride (D5ns) 1,000 mls @ 100 mls/hr IVCONT .Q10H [facility] Last Admin: 01/15/24 02:49 Dose: 100 mls/hr Documented By: FELICIA Multivitamins/Vitamin C (Multivitamin Tablet) 1 tab PO DAILY [facility] Last Admin: 01/15/24 08:11 Dose: 1 tab Documented By: DOROTHEA Pharmacy Consult (Consult Rx Etoh Phenob Im/Po) 1 each MISCELLANE ONCE PRN; Protocol PRN Reason: Consult order Sodium Chloride (0.9 % Sodium Chloride Flush 3 Ml Syringe) 3 ml IVFLUSH QSHIFT [facility] Last Admin: 01/15/24 07:07 Dose: Not Given Documented By: DOROTHEA Non-Admin Reason: See Note Thiamine HCl (Thiamine Hcl 100 Mg Tablet) 100 mg PO DAILY [facility] Labs 01/15/24 04:55 01/15/24 04:55 Labs: Laboratory Results - last 24 hr 01/14/24 01/15/24 01/15/24 23:18 00:18 02:55 MCV 91.6 MCH 32.4 MCHC 35.3 RDW 13.2 Plt Count 97 L D MPV 9.5 Immature Gran % (Auto) 0.3 Neut % (Auto) 39.2 L Lymph % (Auto) 50.9 H [place] % (Auto) 7.8 Eos % (Auto) 0.3 Baso % (Auto) 1.5 Lymph # (Auto) 1.8 [place] # (Auto) 0.3 Eos # (Auto) 0.0 Baso # (Auto) 0.1 Abs Immat Gran (auto) 0.01 Absolute Neuts (auto) 1.4 L Absolute Nucleated RBC 0.000 Nucleated RBC % (auto) 0.0 PT 11.6 INR 1.0 APTT 34.5 Anion Gap 19 Estim Creat Clear Calc 154.1 Estimated GFR > 60 POC Glucose 121 H Random Glucose 101 Calcium 8.3 L D Phosphorus 3.7 Magnesium 2.0 Total Bilirubin 0.9 Direct Bilirubin 0.6 H AST 271 H ALT 133 H Alkaline Phosphatase 180 H Total Creatine Kinase 106 Troponin I High Sens < 2.7 Total Protein 6.9 Albumin 3.5 TSH 1.42 Urine Color Yellow Urine Appearance Clear Urine pH 6.0 Ur Specific [place] 1.020 Urine Protein Negative Urine Glucose (UA) Negative Urine Ketones Trace Urine Blood Negative Urine Nitrite Negative Ur Leukocyte Esterase Negative Urine Opiates Screen Not Detected Urine Fentanyl Screen Not Detected Ur Barbiturates Screen Not Detected Ur Phencyclidine Scrn Not Detected Ur Amphetamines Screen Not Detected U Benzodiazepines Scrn Not Detected Urine Cocaine Screen Not Detected U Marijuana (THC) Screen Not Detected Ethyl Alcohol 469 H* 01/15/24 01/15/24 04:55 07:04 MCV 92.8 MCH 32.0 MCHC 34.5 RDW 13.2 Plt Count 82 L MPV 9.3 L Immature Gran % (Auto) 0.3 Neut % (Auto) 37.1 L Lymph % (Auto) 53.4 H [place] % (Auto) 7.4 Eos % (Auto) 0.3 Baso % (Auto) 1.5 Lymph # (Auto) 1.8 [place] # (Auto) 0.3 Eos # (Auto) 0.0 Baso # (Auto) 0.1 Abs Immat Gran (auto) 0.01 Absolute Neuts (auto) 1.3 L Absolute Nucleated RBC 0.000 Nucleated RBC % (auto) 0.0 PT INR APTT Anion Gap 18 Estim Creat Clear Calc 144.6 Estimated GFR > 60 POC Glucose 91 Random Glucose 91 Calcium 8.1 L Phosphorus Magnesium 2.0 Total Bilirubin 0.8 Direct Bilirubin AST 249 H ALT 126 H Alkaline Phosphatase 160 H Total Creatine Kinase Troponin I High Sens Total Protein 6.7 Albumin 3.4 L TSH Urine Color Urine Appearance Urine pH Ur Specific [place] Urine Protein Urine Glucose (UA) Urine Ketones Urine Blood Urine Nitrite Ur Leukocyte Esterase Urine Opiates Screen Urine Fentanyl Screen Ur Barbiturates Screen Ur Phencyclidine Scrn Ur Amphetamines Screen U Benzodiazepines Scrn Urine Cocaine Screen U Marijuana (THC) Screen Ethyl Alcohol Assessment and Plan (1) Essential hypertension: Status: Acute Plan 63M PMH etoh dependence, htn presented with aphasia and right facial droop aphasia and right facial droop resolved, rule out tia, check mri etoh dependence with withdrawal, pancytoprnia phenobarb, ciwa follow up abd us mild acute etoh hepatitis monitor, etoh cessation dvt prophylaxis - mechanical due to thrombocytopenia full code reason for continued hospitalization:withdrawal ongoing Quality Stroke Does the patient have a stroke diagnosis?: No VTE Prior VTE?: No VTE Risk Level:: Medical - moderate - high VTE Device Contraindication: Treatment Not Indicated VTE Drug Contraindication: N/A - Med Ordered
[2024-01-15] MEDS: PHENobarbitaL sodium 130 MG/ML IM ONCE 278 MG IM (11:10)
[2024-01-15 11:37] LABS: Glucose, Whole Blood 89 mg/dL (60-115)
[2024-01-15] MEDS: PHENobarbitaL sodium 130 MG/ML VIAL IM Q3Hx2 208 MG IM ×2 (14:14→16:39)
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
[2024-01-15] MEDS: 0.9 % Sodium Chloride Flush 3 ML SYRINGE IVFLUSH (16:40)
[2024-01-15] MEDS: PHENobarbitaL 15 MG TABLET 45 MG PO (20:54)
[2024-01-15] MEDS: Melatonin 3 MG TABLET 6 MG PO (20:58)
--- NOTE | 2024-01-16 01:23 | PC.NURSE ---
Assumed care of patient at 19:00 (01/14). Pt seen on s4. Pt is A&Ox4. On CIWA with po phenobarb protocol. Seizure precautions in place. Denies c/p, sob, n/v, pain. No distress noted. Breathing is even and unlabored without distress on RA. Continues on continuous spo2 monitoring as ordered. Bed alarm on and high-falls risk safety measures in place. See shift assessment, tasks, and MAR for full details. Handoff report given to oncoming RN at 23:00.
[2024-01-16] MEDS: Dextrose 5 % and 0.9 % NaCl 1,000 ML 100 ML IVCONT (02:30)
[2024-01-16] MEDS: 0.9 % Sodium Chloride Flush 3 ML SYRINGE IVFLUSH (02:33)
[2024-01-16 03:47] VITALS: BP 121/86; PULSE 76; RESP 18; TEMP 36.3; O2SAT 96
[2024-01-16 07:05] VITALS: BP 137/90; PULSE 73; RESP 18; TEMP 36.3; O2SAT 95
[2024-01-16 07:24] LABS: Prothrombin Time 12.2 SEC (11.1-13.3)
[2024-01-16 07:25] LABS: Hematocrit 36.3 % (42.0-52.0); Hemoglobin 12.7 g/dl (14.0-18.0); Mean Corpuscular Hemoglobin 32.6 pg (27.0-33.0); Mean Corpuscular Volume 93.1 fL (80.0-98.0); Mean Platelet Volume 9.8 fL (9.4-12.4); Platelet Count 79 X10*3/uL (160-400); Red Cell Distribution Width 13.2 % (11.0-16.0); White Blood Count 2.6 X10*3/uL (4.8-10.8)
[2024-01-16 07:37] LABS: Alanine Aminotransferase 125 U/L (0-40); Albumin Level 3.2 g/dL (3.5-5.0); Alkaline Phosphatase 153 U/L (39-117); Anion Gap 14 (12-20); Aspartate Amino Transferase 281 U/L (5-37); Bilirubin Direct 1.2 mg/dL (0.0-0.5); Bilirubin Total 2.4 mg/dL (0.0-1.0); Blood Urea Nitrogen 3 mg/dL (9-16); Calcium 8.4 mg/dL (8.4-10.2); Carbon Dioxide 25 mmol/L (22-29); Chloride 99 mmol/L (96-108); Creatinine Clr Calc Pharmacy 132.4; Estimated Glomerular Filt Rate > 60; Glucose Fasting 105 mg/dL (60-99); Magnesium 1.6 mg/dL (1.6-2.6); Potassium 3.6 mmol/L (3.3-5.1); Sodium 134 mmol/L (135-145); Total Protein 6.3 g/dL (6.5-8.0)
[2024-01-16] MEDS: Folic Acid 1 MG TABLET PO (08:54)
[2024-01-16] MEDS: Multivitamin TABLET 1 TAB PO (08:54)
[2024-01-16] MEDS: Aspirin Enteric Coated 81 MG TABLET.DR PO (08:54)
[2024-01-16] MEDS: PHENobarbitaL 15 MG TABLET 45 MG PO (08:54)
[2024-01-16] MEDS: Thiamine HCL 100 MG TABLET PO (08:55)
--- NOTE | 2024-01-16 11:08 | PM.DS ---
DS: Providers Provider Date of Service: 01/16/24 Date of admission: 01/15/24 02:24 Primary care physician: Julio Duran MD Consults: 01/16/24 09:42 Addiction Medicine Routine Consulting Provider: Addiction Covering Reason for consultation: alcohol use disorder DS: Diagnosis Discharge Diagnosis (1) Alcohol intoxication: Status: Acute DS: Summary Hospital Course Hospital Course: Denny Ann is a 63 years old man with past medical history significant for alcohol abuse, transient global amnesia and hypertension was brought to the emergency department via EMS from a bar with symptoms concerning for stroke including being nonverbal and slight right-sided facial droop. Last time he was well known was at 10:45 PM (last night). The patient was found by ED provider to be intoxicated and unable to speak to him. The patient is now awake, alert and oriented x3 and said that he drinks at least 12 beers daily. He denied any headache, focal weakness, speech difficulty, nausea, vomiting or abdominal pain. He also denies shortness on breath or cough. Denies fever or chills. He denied tobacco smoking or illicit drug use. He stated that he has not taking any of his home medications. In the ED, he was found to have stable vital signs. His NIH score is 0. Blood workup showed pancytopenia: 3.4/13.5/97. There is hyponatremia of 132, CO2 19. Renal function is normal and there are no significant electrolyte imbalances. TSH and troponin are normal. ETOH level is 469. LFTs are not available. Hospital course: Patient was admitted with phenobarb protocol for alcohol withdrawal. Mild aphasia which was present during admission resolved and was likely due to alcohol intoxication. MRI of the head/brain without any acute abnormality. Patient states he no longer feels that he is having withdrawal and wants to go home. Patient is hemodynamically stable prior to discharge. Ultrasound of the abdomen was obtained for elevated transaminases which showed fatty liver. Elevated transaminases and thrombocytopenia likely due to alcohol use. Counseled regarding cessation. Patient will be discharged with prescription for thiamine, folic acid. Status at Discharge Functional status at discharge: independent ambulation Overall status at discharge: patient is back to baseline Time Attestation Total time managing care of this patient today: 29 mintues. Discharge Coordination Time (in mins): Twenty-nine Quality: Safe Use of Opioids Does Pt have an Active Cancer Diagnosis on the Problem List?: No Quality: Stroke Does the patient have a stroke diagnosis?: No Physical Exam Vital Signs: Vital Signs: Last Vital Signs Temp 97.4 F 01/16/24 07:05 Pulse 73 01/16/24 07:05 Resp 18 01/16/24 07:05 BP 137/90 H 01/16/24 07:05 Pulse Ox 95 01/16/24 07:05 O2 Del Method Room Air 01/16/24 07:05 BMI result Body Mass Index 23.6 Middle-aged male lying in bed in no distress Neck supple, no JVD Regular rate and rhythm, S1-S2 heard Regular breath sounds bilaterally, no wheezing or crackles appreciated Abdomen soft nontender, no guarding, no rigidity Patient is awake, alert and oriented to self, place, time and person ; no aphasia, no facial droop Psych: Normal mood No pedal edema DS: Data Data Completed and Pending Labs on day of discharge: Laboratory Results - last 24 hr 01/15/24 01/16/24 11:32 06:56 WBC 2.6 L RBC 3.90 L Hgb 12.7 L Hct 36.3 L MCV 93.1 MCH 32.6 MCHC 35.0 RDW 13.2 Plt Count 79 L MPV 9.8 Absolute Nucleated RBC 0.000 Nucleated RBC % (auto) 0.0 PT 12.2 INR 1.0 Sodium 134 L Potassium 3.6 Chloride 99 Carbon Dioxide 25 Anion Gap 14 BUN 3 L Creatinine 0.71 Estim Creat Clear Calc 132.4 Estimated GFR > 60 POC Glucose 89 Fasting Glucose 105 H Calcium 8.4 Magnesium 1.6 Total Bilirubin 2.4 H Direct Bilirubin 1.2 H AST 281 H ALT 125 H Alkaline Phosphatase 153 H Total Protein 6.3 L Albumin 3.2 L Imaging Chest x-ray: Radiologist's impression: ITS Impressions Head CT 01/14/24 23:44 IMPRESSION: 1. No acute intracranial process seen. 2. Mild cerebral volume loss with mild chronic small vessel ischemic changes. This critical result was discussed with Dr. Alee Swift at 11:44 PM hours on 01/14/2024. It was ascertained that the content and urgency of the report was understood at the time of direct communication. Chest X-Ray 01/14/24 23:48 IMPRESSION: 1. No acute intrathoracic disease. 2. Dilated aorta. Head/Neck CTA 01/15/24 00:00 IMPRESSION: 1. Technically limited CTA of the neck secondary to motion artifact which obscures portions of the carotid and vertebral arteries. Within this limitation, no significant arterial narrowing in the neck is identified. 2. No intracranial arterial high-grade stenosis or large vessel occlusion. Above impression was communicated to Dr. Swift on 01/15/2024 12:12 AM Abdomen Ultrasound 01/15/24 07:35 IMPRESSION: Enlarged fatty liver. Brain MRI 01/15/24 13:10 IMPRESSION: 1. No acute intracranial abnormalities. 2. Mild underlying microangiopathy and generalized cerebral volume loss. Discharge Plan Discharge Anticipated Discharge Date/Time: 01/16/24 12:12 Patient Disposition: Home, Self-Care Discharge Diagnosis: Alcohol use disorder Referrals: Julio Duran MD [Primary Care Provider] - 1 Week Discharge Medications: New aspirin [Adult Low Dose Aspirin] 81 mg tablet,delayed release (DR/EC) 81 mg PO DAILY Qty: 30 0RF folic acid 1 mg Tablet 1 mg PO DAILY 30 Days Qty: 30 0RF thiamine HCl (vitamin B1) 50 mg tablet 100 mg PO DAILY 30 Days Qty: 60 0RF Discharge Orders: Discharge Order (Routine); Ordered 01/16/24 Ordered By: Mary Smith Diet: Advance to usual diet Activity on Discharge: As tolerated Stand Alone Forms: Patient Portal Discharge page Care Plan Goals: Follow-up with PCP within 1 week Health Concerns: Alcohol use disorder Elevated transaminases Thrombocytopenia Plan of Treatment: Thiamine 100 mg daily Folic acid 1 mg daily Aspirin 81 mg daily Alcohol cessation Assessment: As above
[2024-01-16 11:10] VITALS: BP 130/89; PULSE 79; RESP 18; TEMP 36.3; O2SAT 97
--- NOTE | 2024-01-16 11:28 | MHC.CM.PN ---
PT MEDICALLY CLEARED FOR DC HOME SELF CARE, PT TO ARRANGE TRANSPORT.
[2024-01-16 12:00] VITALS: BP 107/61; PULSE 62; RESP 18; TEMP 37.1; O2SAT 97
== END 2024-01-16 12:30 | disposition home or self-care (01) | DRG 775 ==
LOC: HO.ED 01-15 01:11 → HO.EDOVER 01-15 02:27 → HO.IMC 01-15 14:18
PROVIDERS: Internal Medicine; Admitting Provider Internal Medicine; Emergency Provider Emergency Medicine Emergency Medical Services; PCP Family Medicine; Visit Provider Student in an Organized Health Care Education/Training Program
DX: F10.239 Alcohol dependence with withdrawal, unspecified (principal); F10.229 Alcohol dependence with intoxication, unspecified; D61.818 Other pancytopenia; E87.0 Hyperosmolality and hypernatremia; R47.01 Aphasia; K70.10 Alcoholic hepatitis without ascites; R29.810 Facial weakness; Y90.8 Blood alcohol level of 240 mg/100 ml or more; I10 Essential (primary) hypertension; E87.1 Hypo-osmolality and hyponatremia; K76.0 Fatty (change of) liver, not elsewhere classified
CPT/HCPCS: 36415; 70450; 70496; 70498; 70551; 71045; 76705; 80048; 80053; 80076; 80307; 81003; 82550; 82947; 83735; 84100; 84443; 84484; 85025; 85027; 85610; 85730; 93005; 99285; J2560; J3411; Q9967

== ENCOUNTER → 2024-01-15 01:09 | Outpatient (BNV) | payer OTHER, SELFPAY | PROVIDERS: Admitting Provider Internal Medicine; Emergency Provider Emergency Medicine Emergency Medical Services; PCP Family Medicine; Visit Provider Internal Medicine | DX: R07.9 Chest pain, unspecified (principal) | CPT/HCPCS: 93010 ==

== ENCOUNTER → 2024-01-15 02:24 | Outpatient (BNV) | payer OTHER, SELFPAY | PROVIDERS: Admitting Provider Internal Medicine; Emergency Provider Emergency Medicine Emergency Medical Services; Visit Provider Internal Medicine | DX: G45.9 Transient cerebral ischemic attack, unspecified (principal); I10 Essential (primary) hypertension; F10.920 Alcohol use, unspecified with intoxication, uncomplicated; D61.818 Other pancytopenia; K70.10 Alcoholic hepatitis without ascites | CPT/HCPCS: 99223; 99238; 99499 ==

== ENCOUNTER 2024-08-23 10:08 | Inpatient (IN) | payer OTHER, SELFPAY ==
[2024-08-23] VITALS (14 sets, daily range): BP systolic 84–130; BP diastolic 60–83; PULSE 89–126; RESP 11–18; TEMP 36.2–36.8; O2SAT 94–99; BMI 24.6
--- NOTE | 2024-08-23 | ECG_ITS ---
Test Reason : tachycardia Blood Pressure : / mmHG Vent. Rate : 098 BPM Atrial Rate : 098 BPM P-R Int : 158 ms QRS Dur : 064 ms QT Int : 364 ms P-R-T Axes : -23 -18 012 degrees QTc Int : 464 ms Normal sinus rhythm Low voltage QRS Inferior infarct , age undetermined Cannot rule out Anterior infarct , age undetermined Abnormal ECG When compared with ECG of 15-JAN-2024 01:12, Inferior infarct is now Present Nonspecific T wave abnormality no longer evident in Anterior leads Referred By: Generic ED Physician Electronically Signed By:MONROE CHAVARRIA
--- NOTE | ~2024-08-23 | CT_ITS ---
EXAMINATION: CT ABDOMEN AND PELVIS WITHOUT CONTRAST CLINICAL INFORMATION: Abdominal pain. COMPARISON: Right upper quadrant ultrasound January 15, 2024 TECHNIQUE: Multidetector volumetric imaging was performed from the superior aspect of the liver through the pubic symphysis. Sagittal and coronal reformatted images were obtained on the technologist's workstation. This CT examination was performed using dose optimization techniques as appropriate, variously including the following: *Automated exposure control *Adjustment of mA and/or kV according to patient size (this includes techniques or standardized protocols for targeted exams where dose is matched to indication/reason for exam; i.e. extremities or head) *Use of iterative reconstruction technique DLP: 673 mGy-cm FINDINGS: LUNG BASES: No pleural or pericardial effusion. LIVER, GALLBLADDER, AND BILIARY TREE: The liver is markedly decreased in attenuation and enlarged. No focal hepatic lesion or biliary ductal dilatation is present. Possible sludge in the distended gallbladder. Large ascites. Hepatic vasculature is patent. PANCREAS: No ductal dilatation. SPLEEN: Not enlarged. ADRENAL GLANDS: No adrenal mass. KIDNEYS AND URETERS: The kidneys are symmetric in size. No hydronephrosis. No perinephric stranding. BLADDER: Unremarkable. GASTROINTESTINAL TRACT: Diffuse small and large bowel wall thickening and submucosal edema possibly related to surrounding ascites. No small bowel obstruction. ABDOMINAL WALL: Small bilateral fat-containing inguinal hernias. LYMPH NODES: No bulky lymphadenopathy. VASCULAR: Normal caliber abdominal aorta. PELVIC VISCERA: Unremarkable. OSSEOUS STRUCTURES: No destructive bone lesions. CT/CT abdomen pelvis wo IV con IMPRESSION: Diffuse small and large bowel wall thickening possibly related to surrounding ascites. Infectious and inflammatory etiologies cannot be excluded. Advise clinical correlation. Severe hepatic steatosis and hepatomegaly. Large ascites. Possible sludge in the gallbladder. Electronically signed by: Dashawn Paniagua MD 08/23/2024 12:26 PM EDT
--- NOTE | ~2024-08-23 | CT_ITS ---
EXAMINATION: CT ABDOMEN PELVIS WITHOUT IV CONTRAST, CT CHEST WITHOUT IV CONTRAST CLINICAL INFORMATION: Worsening abdominal distention. Obtunded on oxygen. Suspect aspiration pneumonitis. COMPARISON: Chest radiograph 08/23/2024. CT head 08/29/2024. Abdominal ultrasound 08/23/2024. CT abdomen and pelvis 08/23/2024. TECHNIQUE: Unenhanced CT of the chest, abdomen and pelvis. Intravenous Contrast: None This CT examination was performed using dose optimization techniques as appropriate, variously including the following: *Automated exposure control *Adjustment of mA and/or kV according to patient size (this includes techniques or standardized protocols for targeted exams where dose is matched to indication/reason for exam; i.e. extremities or head) *Use of iterative reconstruction technique DLP: 252 mGy-cm chest DLP: 919 mGy-cm abd/pelvis FINDINGS: Chest: Mild bibasilar posterior dependent compressive atelectasis of the lungs is identified. No pulmonary consolidation noted. Mild retained secretions are noted within the distal thoracic trachea and within the right mainstem bronchus. Moderate coronary artery calcific atherosclerosis is noted primarily within the left anterior descending coronary artery. Normal heart size. No pericardial thickening or pericardial fluid collections. No thoracic wall inflammatory changes. Note, images of the chest are suboptimal secondary to motion artifact. No suspicious skeletal lesions of the chest identified. Partial visualization is made of an enteric tube coursing within the esophagus. CT abdomen and pelvis: Liver: The liver is enlarged measuring 24 cm in transaxial dimension. No focal parenchymal lesions of the liver noted. No pneumobilia or portal venous gas identified. Gallbladder and biliary system: Linear hyperdensity is present within the lumen of the gallbladder may represent vicarious excretion of previously administered injuring his contrast agent. No radiodense cholelithiasis definitively visualized. No biliary duct dilatation noted. Pancreas: Normal. Spleen: Normal. Kidneys: Normal. Urinary bladder: Rosado catheter terminates within the urinary bladder. Punctate nondependent foci of gas are present in the urinary bladder. Gastrointestinal system: Rectal tube is noted. Diffuse dilatation of the colon is present to a diameter of up to 7 cm. Gas-fluid levels are present within the colon and findings suspicious for pneumatosis intestinalis of the colon are present as manifest by gas visualized to best advantage in the areas of adjacent fluid within the colon suggestive of gas within the wall of the colon. Pneumatosis is visualized adjacent to areas of gas containing intestinal segments 2. Findings are visualized to best advantage with appropriate windowing (for example series 3 image 64 within the ascending colon). Multifocal tubular foci of gas are noted which appear to track within the colonic venous system and within the transverse mesocolon. Additionally gas is noted within the left common femoral vein and within a subcutaneous vessel which appears to meet again with the left inferior epigastric vein. A mild-moderate quantity of scattered free intraperitoneal fluid is present (7 Hounsfield units). The quantity of free intraperitoneal fluid is similar findings present 08/23/2024. The terminal ileum is normal in appearance (series 3 image 69). Small bowel is normal in caliber. No small bowel pneumatosis intestinalis identified. Normal appearance of the stomach. Enteric tube terminates within the second portion the duodenum. Close scrutiny of the abdomen and pelvis demonstrates no definitive free intraperitoneal gas. Scattered ectopic foci of gas is noted above appear to track within the vessels and no definitive free intraperitoneal gas noted. No large bowel mural thickening noted. Abdominal wall: No abdominal wall hernias noted. Genitourinary system: Normal appearance of the prostate and seminal vesicles. Lymphovascular structures: Scattered calcific atherosclerosis. Normal abdominal aortic caliber. No abdominal or pelvic lymphadenopathy. Gas within multiple venous structures as detailed above. Osseous structures: No suspicious skeletal abnormalities noted. Marked L4-L5 intervertebral disc space narrowing and probable vacuum phenomenon associated with a partially visualized disc extrusion with caudal extension at the level of L4-L5. CT/CT abdomen pelvis wo IV con Impression: Unenhanced CT of the chest, abdomen and pelvis: *Diffuse abnormal dilatation of the colon to a diameter of 7 cm associated with pneumatosis coli and intravenous gas within the colonic venous system. Multiple foci of gas are noted within the colonic veins of the transverse mesocolon. Additionally, intravenous gas is noted within the left common femoral vein and a cutaneous branch of the left inferior epigastric vein. These findings may indicate colonic ischemia in the setting of toxic megacolon. Pneumatosis coli and colonic venous gas are suspicious for ischemia but may also be seen in association with nonischemic colonic dilatation and infectious/inflammatory conditions of the colon. No free intraperitoneal gas noted. A mild-moderate quantity of low density free intraperitoneal fluid is present and similar findings present on the comparison CT of 08/23/2024. A rectal tube terminates in the rectosigmoid region. *Mild bibasilar compressive atelectasis of the lungs. No evidence of aspiration pneumonia/pneumonitis. *Focal calcific atherosclerosis of the left anterior descending coronary artery. *Hepatomegaly. This result with particular regards to findings suspicious for possible colonic ischemia was discussed with Lazaro YEE by telephone at 08/30/2024 5:13AM EST and it was ascertained that the content and urgency of the report was understood at the time of direct communication. Mr. Betts conveyed that surgery would be consulted regarding possible bowel ischemia. Electronically signed by: Kenrick Felton MD 08/30/2024 05:25 AM TIAN
--- NOTE | ~2024-08-23 | CT_ITS ---
EXAMINATION: CT HEAD WITHOUT CONTRAST CLINICAL INFORMATION: Encephalopathy. COMPARISON: None available. TECHNIQUE: Contiguous axial imaging was performed from the skull base to vertex without intravenous administration of contrast. This CT examination was performed using dose optimization techniques as appropriate, variously including the following: *Automated exposure control *Adjustment of mA and/or kV according to patient size (this includes techniques or standardized protocols for targeted exams where dose is matched to indication/reason for exam; i.e. extremities or head) *Use of iterative reconstruction technique DLP: 1180 mGy-cm FINDINGS: There is no acute intra-axial, extra-axial bleed, masses or midline shift. There is no acute infarction in evolution. There is diffuse periventrical hypodensity in both cerebral hemispheres. The lateral ventricles are symmetrical in size and configuration without enlargement. Bone windows reveal no calvarial abnormality. There is no scalp soft tissue abnormality. Paranasal sinuses and mastoid air cells are well-aerated. CT/CT head/brain wo IV con IMPRESSION: 1. No acute intracranial process seen. 2. Age-related cerebral volume loss with chronic small vessel ischemic changes. Electronically signed by: Imtiaz Rust MD 08/29/2024 03:16 PM TIAN
--- NOTE | ~2024-08-23 | XR_ITS ---
EXAMINATION: XR CHEST CLINICAL INFORMATION: Chest pain. COMPARISON: January 14, 2024 TECHNIQUE: Frontal view of the chest was obtained. FINDINGS: Low lung volumes. No focal consolidation. No pleural effusion. Left hemidiaphragm is elevated. Cardiac silhouette is unchanged. Tortuous and dilated thoracic aorta unchanged from prior. XR/XR chest 1V IMPRESSION: No acute abnormality. Electronically signed by: Dashawn Paniagua MD 08/23/2024 12:06 PM EDT
--- NOTE | ~2024-08-23 | US_ITS ---
EXAMINATION: US ABDOMEN LIMITED CLINICAL INFORMATION: Hepatitis. COMPARISON: Ultrasound abdomen January 15, 2024. CT scan abdomen pelvis August 23, 2024 TECHNIQUE: Real-time imaging of the right upper quadrant abdominal viscera. Color Doppler exam was used FINDINGS: Exam limited due to bowel gas. Motion joint study degrading Doppler examination. PANCREAS: Obscured by bowel gas LIVER: Liver is enlarged right lobe of liver measures 21.5 cm. The liver contour is normal. Diffuse increased echogenicity of the parenchyma of liver. The umbilical vein is recannulized. There is ascites anterior to liver. No focal hepatic lesion. There is no intrahepatic biliary duct dilatation seen. Vascular flow in the middle portal vein is hepatopedal however the vascular has low velocity. GALLBLADDER: Echogenic bile. There is no gallstone. Small volume of pericholecystic fluid this is probably related to the abdominal ascites. Hypoechoic wall suggesting fluid in the wall of the wall however the gallbladder wall is not thickened measuring 0.4 cm. The gallbladder is distended to a length of 10.5 cm. Negative ultrasound Jewell's sign. COMMON BILE DUCT: Normal in caliber measuring 0.4 cm in diameter. RIGHT KIDNEY: Normal. No hydronephrosis. No renal calculi or focal parenchymal lesions. The kidney measures 12.5 cm in maximum dimension. FREE FLUID: None. US/US abdomen limited IMPRESSION: 1. Hepatomegaly. Diffuse increased echogenicity of the liver parenchyma. Recannulized umbilical vein. Ascites. 2. Echogenic bile in the gallbladder. No gallstone. Small volume of pericholecystic fluid which is related to abdominal ascites. Hypoechoic wall suggesting fluid in the wall of the gallbladder however the gallbladder wall is not thickened. Negative ultrasound Jewell's sign. 3. No bile duct dilatation. Electronically signed by: Luis Angel Romero MD 08/23/2024 04:46 PM EDT
--- NOTE | ~2024-08-23 | XR_ITS ---
EXAMINATION: XR CHEST CLINICAL INFORMATION: NG tube COMPARISON: Chest radiograph dated 08/15/2024 TECHNIQUE: Frontal view of the chest was obtained. FINDINGS: Interval placement of endogastric tube with tip projecting in the right upper quadrant. Low lung volumes. Elevation of the left hemidiaphragm. Left basilar atelectasis. No focal consolidation. No pulmonary edema, pleural effusion, or pneumothorax. Enlarged cardiomediastinal silhouette is likely projectional. Unobstructed bowel gas pattern. XR/XR chest 1V IMPRESSION: 1. Interval placement of endogastric tube with tip projecting in the right upper quadrant. 2. Low lung volumes, elevation of the left hemidiaphragm, and left basilar atelectasis. Electronically signed by: Mimi cShofield MD 08/29/2024 02:48 PM TIAN CEDENO
--- NOTE | ~2024-08-23 | XR_ITS ---
EXAMINATION: XR CHEST CLINICAL INFORMATION: Status post intubation. COMPARISON: CT chest 08/29/2024. TECHNIQUE: Frontal view of the chest was obtained. FINDINGS: An endotracheal tube terminates 4 cm superior to the gerri. A right internal jugular catheter terminates in projection with the inferior aspect of the superior vena cava. Enteric tube courses in projection with the stomach beyond the inferior margin of the field of view. Low lung volumes are present. Making allowances for low lung volumes, grossly normal pattern of pulmonary vasculature is noted. No effusions or pneumothoraces identified. XR/XR chest 1V IMPRESSION: 1. Endotracheal tube terminating 4 cm superior to the gerri. 2. Right internal jugular catheter terminating within the inferior aspect of the superior vena cava. 3. Enteric tube coursing within the stomach. 4. Low lung volumes. Electronically signed by: Kenrick Felton MD 08/30/2024 06:46 AM TIAN
--- NOTE | ~2024-08-23 | CT_ITS ---
EXAMINATION: CT HEAD WITHOUT CONTRAST CLINICAL INFORMATION: Subdural hematoma. COMPARISON: MRI brain January 15, 2024 CT head January 14, 2024 TECHNIQUE: Contiguous axial imaging was performed from the skull base to vertex without intravenous administration of contrast. This CT examination was performed using dose optimization techniques as appropriate, variously including the following: *Automated exposure control *Adjustment of mA and/or kV according to patient size (this includes techniques or standardized protocols for targeted exams where dose is matched to indication/reason for exam; i.e. extremities or head) *Use of iterative reconstruction technique DLP: 716 mGy-cm FINDINGS: There is no evidence of acute intracranial hemorrhage or large evolving territorial infarction. No mass effect or midline shift is seen. Mild periventricular and subcortical white matter hypoattenuation most likely representing chronic microangiopathic changes. No extra-axial fluid collections are identified. No hydrocephalus. The osseous structures and soft tissues are intact. The mastoid air cells and visualized portions of the paranasal sinuses are well aerated. CT/CT head/brain wo IV con IMPRESSION: No acute intracranial abnormality. Electronically signed by: Dashawn Paniagua MD 08/23/2024 12:14 PM EDT
[2024-08-23 10:48] LABS: MANUAL DIFF FLAG NO
[2024-08-23 10:56] LABS: Basophils Percent Auto 0.2 % (0-2); Eosinophils Absolute Auto 0.1 X10*3/uL (0.0-0.4); Eosinophils Percent Auto 0.9 % (0-4); Imm Gran Abs Auto 0.04 X10*3/uL (0.00-0.03); Imm Gran Pct Auto 0.7 % (0.0-0.4); Lymphocytes Absolute Auto 0.5 X10*3/uL (1.2-4.9); Lymphocytes Percent Auto 8.8 % (20-40); Mean Corpuscular HGB Conc 37.5 g/dl (31.0-36.0); Mean Corpuscular Hemoglobin 35.2 pg (27.0-33.0); Mean Corpuscular Volume 93.8 fL (80.0-98.0); Mean Platelet Volume 9.5 fL (9.4-12.4); Monocytes Absolute Auto 0.7 X10*3/uL (0.1-1.2); Monocytes Percent Auto 13.1 % (2-11); Neutrophils Absolute Auto 4.3 x10*3/uL (2.0-8.3); Neutrophils Percent Auto 76.3 % (45-73); Platelet Count 140 X10*3/uL (160-400); Red Blood Count 3.41 X10*6/uL (4.60-5.80); White Blood Count 5.6 X10*3/uL (4.8-10.8)
--- NOTE | 2024-08-23 11:08 | ED_ITS ---
HPI - General Adult General Chief complaint: General Medical Stated complaint: Jaundice/Urinary issues Time Seen by Provider: 08/23/24 11:09 Source: patient Mode of arrival: ambulatory Limitations: no limitations History of Present Illness HPI narrative: This is a 63 years old male with history of alcohol abuse presented to the emergency department with jaundice weakness malaise, he was brought here by the sister Onset (ago): day(s) (1) Radiation: non-radiation Severity: moderate Pain Consistency: constant Relieving factors: none Exacerbating factors: none Related Data Home Medications ?Medication ?Instructions ?Recorded ?Confirmed No Known Home Meds 08/23/24 08/23/24 Allergies Allergy/AdvReac Type Severity Reaction Status Date / Time No Known Allergies Allergy Verified 08/23/24 10:33 [No Known Allergies*] Review of Systems 2 Constitutional: Constitutional: Reports no additional constitutional complaints ENT: Reports system reviewed and no additional complaints, except as documented Respiratory: Respiratory: Reports no additional respiratory complaints PMFSH Past Medical History PMFSH Narrative: Alcohol abuse, hypertension Medical History No known health problems Surgical History History of umbilical hernia repair Family History Family History Father HTN (hypertension) Cancer History of heart attack Mother No problems noted. Social History Social History Household Members: Family Household Members Other:: With Son Housing: House Do you presently have visiting nurse or other home services: No Alcohol intake: current Alcohol intake frequency: 3 or more drinks per day Patient Tobacco Use Status: Never used Tobacco Smoked in Last 30 Days: No Use of substances other than those prescribed or required for medical reasons: No Advance Directives: No Advance Directives Information Provided: Yes Do you have a plan to hurt others: No Plan Nutrition Risks: No Nutritional Risk Current occupational status: retired Physical Exam ED Vital Signs: Vital Signs - 24 hr 08/23/24 10:28 08/23/24 11:11 08/23/24 12:00 Temperature 98.3 F Pulse Rate 107 H 126 H 101 H Respiratory Rate 18 12 13 Blood Pressure 110/82 130/81 113/80 Pulse Oximetry 99 98 97 Oxygen Delivery Method Room Air Room Air Room Air BMI result Body Mass Index 24.6 No distress Const General: cooperative Nutritional Appearance: average body habitus Orientation/consciousness: patient oriented x3 HENMT Other: Jaundice present General nose exam: Normal external nose present Face and sinus: Yes normal facial exam Eyes Other: Jaundice Alignment and Position: alignment normal Periorbital: periorbital findings normal Chest Chest palpation & inspection: normal inspection of the chest Resp Effort & Inspection: normal respiratory effort Auscultation: clear to auscultation bilaterally Cardio Jugular venous distension: no JVD Rate: regular rate Rhythm: regular rhythm GI Inspection: Yes normal to inspection Palpation (GI): Soft to palpation, not firm and nontender Auscultation: normal bowel sounds Neuro General: patient oriented x3 Course Reevaluation(s) Reevaluation #1: Patient has severe hyponatremia 118 he will be admitted to the intensive care unit nephrology consult was obtained in the emergency department Medications Administered Generic Name Dose Route Start Last Admin Trade Name Freq PRN Reason Stop Dose Admin Chlordiazepoxide HCl 25 mg 08/23/24 12:45 08/23/24 12:50 Chlordiazepoxide Hcl 25 Mg Capsule PO 25 mg BID LESLY Administration Enoxaparin Sodium 40 mg 08/23/24 12:30 08/23/24 12:50 Enoxaparin Sodium 40 Mg/0.4 Ml Syringe SUBCUT 40 mg Q24H LESLY Administration Famotidine 20 mg 08/23/24 12:45 08/23/24 12:50 Famotidine/Pf 20 Mg/2 Ml Vial IVPUSH 20 mg BID LESLY Administration Lactated Ringer's 1,000 mls @ 60 mls/hr 08/23/24 13:00 08/23/24 13:09 Lr IVCONT 60 mls/hr .[id number] LESLY Administration Discontinued Medications Generic Name Dose Route Start Last Admin Trade Name Freq PRN Reason Stop Dose Admin Lactulose 20 gm 08/23/24 12:31 08/23/24 12:50 Lactulose 20 Gm/30 Ml Solution PO 08/23/24 12:32 20 gm BID ONE Administration Phenobarbital Sodium 350 mg 08/23/24 12:00 08/23/24 11:38 Phenobarbital Sodium 130 Mg/Ml Im Once IM 08/23/24 12:01 350 mg ONCE ONE Administration Protocol Medical Decision Making Medical Decision Making [facility] [place] Narrative: Patient presented with jaundice multiple falls as well we will check labs head CT Differential Diagnosis Differential Diagnoses: The differential diagnosis associated with the presentation includes Alcoholic look hepatitis /obstructive jaundice Admission/Observation Consideration of admission/observation: Escalation of care including admission/observation considered Consult Healthcare Provider renal and ICU attending Lab Data [facility] [place] Lab Attestation statement: I reviewed the patient's lab results. 08/23/24 10:44 08/23/24 12:43 Labs: Lab Results 08/23/24 Range/Units 10:44 WBC 5.6 (4.8-10.8) X10*3/uL RBC 3.41 L (4.60-5.80) X10*6/uL Hgb 12.0 L (14.0-18.0) g/dl Hct 32.0 L (42.0-52.0) % MCV 93.8 (80.0-98.0) fL MCH 35.2 H (27.0-33.0) pg MCHC 37.5 H (31.0-36.0) g/dl RDW 15.0 (11.0-16.0) % Plt Count 140 L D (160-400) X10*3/uL MPV 9.5 (9.4-12.4) fL Immature Gran % (Auto) 0.7 H (0.0-0.4) % Neut % (Auto) 76.3 H (45-73) % Lymph % (Auto) 8.8 L (20-40) % Richardson % (Auto) 13.1 H (2-11) % Eos % (Auto) 0.9 (0-4) % Baso % (Auto) 0.2 (0-2) % Lymph # (Auto) 0.5 L (1.2-4.9) X10*3/uL Richardson # (Auto) 0.7 (0.1-1.2) X10*3/uL Eos # (Auto) 0.1 (0.0-0.4) X10*3/uL Baso # (Auto) 0.0 (0.0-0.2) X10*3/uL Abs Immat Gran (auto) 0.04 H (0.00-0.03) X10*3/uL Absolute Neuts (auto) 4.3 (2.0-8.3) x10*3/uL Absolute Nucleated RBC 0.000 (0.0-0.012) X10*3/uL Nucleated RBC % (auto) 0.0 (0.0-0.2) /100WBC Sodium 118 L* (135-145) mmol/L Potassium 4.0 (3.3-5.1) mmol/L Chloride 82 L (96-108) mmol/L Carbon Dioxide 20 L (22-29) mmol/L Anion Gap 20 (12-20) BUN 5 L (9-16) mg/dL Creatinine 0.63 (0.5-1.4) mg/dL Estim Creat Clear Calc 147.3 Estimated GFR > 60 Random Glucose 87 (60-115) mg/dL Calcium 8.0 L (8.4-10.2) mg/dL Total Bilirubin 13.0 H (0.0-1.0) mg/dL Direct Bilirubin 8.4 H (0.0-0.5) mg/dL AST 394 H (5-37) U/L ALT 119 H (0-40) U/L Alkaline Phosphatase 314 H (39-117) U/L Total Protein 6.8 (6.5-8.0) g/dL Albumin 2.9 L (3.5-5.0) g/dL Lipase 43 (8-78) U/L Independent Interpretation I performed an independent interpretation of an: Plain X-Ray Interpretation: I reviewed the head CT no acute disease I reviewed the chest x-ray no pneumonia I reviewed the CT interpreted myself as ascites Radiology Impression Discussion of test interpretation with radiology: I have reviewed the radiologist's reading. Radiologist Impression: midline shift is seen. Mild periventricular and subcortical white matter hypoattenuation most likely representing chronic microangiopathic changes. No extra-axial fluid collections are identified. No hydrocephalus. The osseous structures and soft tissues are intact. The mastoid air cells and visualized portions of the paranasal sinuses are well aerated. CT/CT head/brain wo IV con IMPRESSION: No acute intracranial abnormality. Electronically signed by: Dashawn Paniagua MD 08/23/2024 12:14 PM EDT Dictated By: Chudga Independent Historian Clinical information obtained from an independent historian. History obtained from or confirmed by: Other (sister) Chronic Conditions Patient?s care impacted by: Other (Alcohol abuse) Social Determinants Patient?s care significantly limited by Social Determinants of Health including: Alcoholism and drug addiction in family Critical Care Time Critical Care Time Critical Care Time: Yes Total Critical Care Time: 90 Attestation: Hyponatremia, tachycardic the patient is speaking with the family speaking with the Nephrology consult and ICU team Discharge Plan Discharge Clinical Impression: Acute hyponatremia, Jaundice, Acute alcoholic hepatitis Ascites Qualifiers: Ascites type: due to alcoholic cirrhosis Qualified Code(s): K70.31 - Alcoholic cirrhosis of liver with ascites Patient Disposition: Admitted As Inpatient
[2024-08-23 11:09] LABS: Alanine Aminotransferase 119 U/L (0-40); Albumin Level 2.9 g/dL (3.5-5.0); Alkaline Phosphatase 314 U/L (39-117); Aspartate Amino Transferase 394 U/L (5-37); Bilirubin Direct 8.4 mg/dL (0.0-0.5); Blood Urea Nitrogen 5 mg/dL (9-16); Creatinine Clr Calc Pharmacy 147.3; Estimated Glomerular Filt Rate > 60; Glucose Random 87 mg/dL (60-115); Lipase 43 U/L (8-78); Total Protein 6.8 g/dL (6.5-8.0)
[2024-08-23 11:23] LABS: Anion Gap 20 (12-20); Carbon Dioxide 20 mmol/L (22-29); Chloride 82 mmol/L (96-108); Sodium 118 mmol/L (135-145)
[2024-08-23] MEDS: PHENobarbitaL sodium 130 MG/ML IM ONCE 350 MG IM (11:38)
--- NOTE | 2024-08-23 12:44 | PHA.MEDREC ---
Addendum entered by Danielle Baca [facility] 08/23/24 13:45: reviewed Addendum entered by Danielle Baca RP 08/23/24 13:41: REVIEWED Original Note: Pharmacy Consult ? Medication Reconciliation Pharmacy has completed the medication reconciliation. Patient confirmed he is not taking any medications OTC or Prescription steiner.
[2024-08-23] MEDS: Famotidine/PF 20 MG/2 ML VIAL IVPUSH ×2 (12:50→20:35)
[2024-08-23] MEDS: Enoxaparin Sodium 40 MG/0.4 ML SYRINGE SUBCUT (12:50)
[2024-08-23] MEDS: Lactulose 20 GM/30 ML SOLUTION PO (12:50)
[2024-08-23] MEDS: chlordiazePOXIDE HCl 25 MG CAPSULE PO ×2 (12:50→20:35)
--- NOTE | 2024-08-23 12:57 | P.CONNP_ITS ---
History of Present Illness Reason for Consult Consult date: 08/23/24 Chief Complaint Chief complaint: hyponatremia History of Present Illness Narrative: Pt is a 64 y/o male with a medical history of EToH abuse (states drinks 8-10 beers daily), hypertension, hx of transient global amnesia. Nephrology consulted for hyponatremia (sodium 118). He presents to the 08/23 he states because I'm jaundiced. He states this has not occurred before. He states he is urinating without pain/difficulty, last void was this a.m. He denies abdominal pain, difficulty breathing, chest pain He has significant purpura on all extremities, face- he states I fall a lot and this has been going on for some time. he states his urine has been dark in color for a few weeks now Sodium 118 on 08/23 at 10:44 creatinine 0.63 on 08/23 arrival total bilirubin 13, direct 8.4, AST/ALT 394 and 119 He has had a chronic anemia since December 2023 with thrombocytopenia since December 2023 CT abd/pelvis 08/23: kidneys/ureters/bladder unremarkable. No hydronephrosis. Also shows severe hepatic steatosis and hepatomegaly with large ascites, in addition to diffuse small and large bowel wall thickening. Review of Systems Constitutional: Reports fatigue Denies dizziness Cardiovascular: Denies chest pain, Reports leg edema, Denies lightheadedness and Denies dyspnea Respiratory: Denies dyspnea Gastrointestinal: Denies abdominal pain, Denies diarrhea, Denies nausea and Denies vomiting Genitourinary: Denies hematuria, Denies oliguria and Denies dysuria Comments: reports ongoing nocturia and dark colored urine over last few weeks Musculoskeletal: Denies back pain Skin/Breast: Reports unusual bruising and Reports jaundice Denies dizziness Endocrine: Reports fatigue PMFSH Past Medical History Medical History No known health problems Family History Family History Father HTN (hypertension) Cancer History of heart attack Mother No problems noted. Surgical History Surgical History History of umbilical hernia repair Social History Social History Household Members: Family Household Members Other:: With Son Housing: House Do you presently have visiting nurse or other home services: No Alcohol intake: current Alcohol intake frequency: 3 or more drinks per day Patient Tobacco Use Status: Never used Tobacco Current occupational status: retired Meds Allergies Allergy/AdvReac Type Severity Reaction Status Date / Time No Known Allergies Allergy Verified 08/23/24 10:33 [No Known Allergies*] Active Medications: Current Medications Chlordiazepoxide HCl (Chlordiazepoxide Hcl 25 Mg Capsule) 25 mg PO BID [facility] Last Admin: 08/23/24 12:50 Dose: 25 mg Enoxaparin Sodium (Enoxaparin Sodium 40 Mg/0.4 Ml Syringe) 40 mg SUBCUT Q24H [facility] Last Admin: 08/23/24 12:50 Dose: 40 mg Famotidine (Famotidine/Pf 20 Mg/2 Ml Vial) 20 mg IVPUSH BID [facility] Last Admin: 08/23/24 12:50 Dose: 20 mg Ondansetron HCl (Ondansetron Hcl 4 Mg/2 Ml Vial) 4 mg IVPUSH Q8H PRN PRN Reason: Nausea and Vomiting Pharmacy Consult (Consult Rx Etoh Phenob Im/Po) 1 each MISCELLANE ONCE PRN; Protocol PRN Reason: Consult order Phenobarbital Sodium (Phenobarbital Sodium 65 Mg/Ml Vial) 65 mg IM ONCE PRN PRN Reason: Alcohol Withdrawal Prednisolone Sodium Phosphate (Prednisolone Sodium Phosphate 15 Mg/5 Ml Solution) 40 mg PO DAILY [facility] Home Medications ?Medication ?Instructions ?Recorded ?Confirmed ?Last Taken ?Type No Known Home Meds 08/23/24 08/23/24 Unknown History Physical Exam Vital Signs: Last Vital Signs Temp 98.3 F 08/23/24 10:28 Pulse 101 H 08/23/24 12:00 Resp 13 08/23/24 12:00 BP 113/80 08/23/24 12:00 Pulse Ox 97 08/23/24 12:00 O2 Del Method Room Air 08/23/24 12:00 BMI result Body Mass Index 24.6 Const General: no acute distress, alert and awake Resp Effort & Inspection: normal respiratory effort and able to speak in complete sentences Auscultation: clear to auscultation bilaterally Cardio Rate: regular rate Rhythm: regular rhythm Heart sounds: S1 normal heart sound present and S2 normal heart sound present GI Inspection: Yes distended Palpation (GI): Soft to palpation and nontender Percussion: Yes dullness to percussion (suprapubic dullness) Other: suprapubic dullness to percussion General: Yes no CVA tenderness Back/Spine/Pelvis Back: no CVA tenderness Skin General skin exam: jaundice, purpura (significant purpura and scabbing in all four extremities ) and scars Rashes: rashes noted (significant purpura and scabbing in all four extremities ) Neuro Other: no tremors General: moves all extremities Extrem General: Yes edema (+1-+2 BLE edema ) and Yes pedal edema Results Lab Results 08/23/24 10:44 08/23/24 10:44 Lab results: Chemistry 08/23/24 10:44 Sodium 118 L* Potassium 4.0 Carbon Dioxide 20 L BUN 5 L Creatinine 0.63 Calcium 8.0 L Hematology 08/23/24 10:44 WBC 5.6 Hgb 12.0 L Plt Count 140 L D Assessment and Plan (1) Acute hyponatremia: Status: Acute Plan Hyponatremia most likely secondary to beer potomania Will check stat serum sodium now and in 2 hours to assess for sodium trend Will check urine sodium, protein and creatinine Will also check hepatitis panel Ordered LR at 60mL/hr infusion for slow hyponatremia correction, will adjust pending serum sodium levels Will continue to closely monitor Discussed with Dr Wooten Procedures Date of Service Date of Service: 08/23/24
[2024-08-23 13:01] LABS: Sodium 118 mmol/L (135-145)
[2024-08-23] MEDS: Lactated Ringers 1,000 ML 60 ML IVCONT (13:09)
[2024-08-23 15:44] LABS: Sodium 119 mmol/L (135-145)
--- NOTE | 2024-08-23 16:18 | P.HPCC_ITS ---
History of Present Illness Date of Service: 08/23/24 Chief Complaint: jaundice 64-year-old gentleman with past medical history of alcohol abuse disorder, history of possible TIA admitted to the hospital in December for the same presents to the ED from his home as he noticed jaundice. He states it is acute in onset and he saw it today, nonprogressive, not associated with any other symptoms. He denies vomiting, denies diarrhea, denies fever, denies cough. He states he has been having scrambled eggs and nolan for breakfast, sandwich for lunch and dinner and also drinks coffee and tea. He drinks about 10-12 beer everyday for the past several years, last night he drank only 3-4 beers. He denies any other new complaints Review of Systems 2 Constitutional: Constitutional: Denies body ache(s) and Denies daytime sleepiness Eyes: Eyes: Denies exophthalmos and Denies change in vision ENT: Denies Normal hearing present and Denies bleeding gums Cardiovascular: Cardiovascular: Denies Abdominal Cramping after Meds and Denies Abdominal Distension Respiratory: Respiratory: Denies change in phlegm color, Denies chest congestion and Denies cough Gastrointestinal: Gastrointestinal: Denies belching and Denies melena Genitourinary: Genitourinary: Denies change in libido and Denies hematuria Musculoskeletal: Musculoskeletal: Denies myalgias and Denies atrophy Integumentary/Breasts: Skin/Breast: Denies bleeding lesions and Denies breast swelling Neurologic: Denies Normal hearing present and Denies behavioral changes Psychiatric: Psychiatric: Denies behavioral changes and Denies change in libido Endocrine: Endocrine: Denies change in libido and Denies deepening of the voice PMFSH Past Medical History Medical History No known health problems Family History Family History Father HTN (hypertension) Cancer History of heart attack Mother No problems noted. Surgical History Surgical History History of umbilical hernia repair Social History Social History Household Members: Family Household Members Other:: Son Housing: House Do you presently have visiting nurse or other home services: No Alcohol intake: current Alcohol intake frequency: 3 or more drinks per day Patient Tobacco Use Status: Never used Tobacco Current occupational status: retired Meds Allergies Allergy/AdvReac Type Severity Reaction Status Date / Time No Known Allergies Allergy Verified 08/23/24 10:33 [No Known Allergies*] Active Medications: Current Medications Chlordiazepoxide HCl (Chlordiazepoxide Hcl 25 Mg Capsule) 25 mg PO BID [facility] Last Admin: 08/23/24 12:50 Dose: 25 mg Enoxaparin Sodium (Enoxaparin Sodium 40 Mg/0.4 Ml Syringe) 40 mg SUBCUT Q24H LESLY Last Admin: 08/23/24 12:50 Dose: 40 mg Famotidine (Famotidine/Pf 20 Mg/2 Ml Vial) 20 mg IVPUSH BID [facility] Last Admin: 08/23/24 12:50 Dose: 20 mg Lactated Ringer's (Lr) 1,000 mls @ 75 mls/hr IVCONT .[id number] [facility] Last Infusion: 08/23/24 16:07 Dose: 75 mls/hr Ondansetron HCl (Ondansetron Hcl 4 Mg/2 Ml Vial) 4 mg IVPUSH Q8H PRN PRN Reason: Nausea and Vomiting Pharmacy Consult (Consult Rx Etoh Phenob Im/Po) 1 each MISCELLANE ONCE PRN; Protocol PRN Reason: Consult order Phenobarbital Sodium (Phenobarbital Sodium 65 Mg/Ml Vial) 65 mg IM ONCE PRN PRN Reason: Alcohol Withdrawal Prednisolone Sodium Phosphate (Prednisolone Sodium Phosphate 15 Mg/5 Ml Solution) 40 mg PO DAILY [facility] Home Medications ?Medication ?Instructions ?Recorded ?Confirmed ?Last Taken ?Type No Known Home Meds 08/23/24 08/23/24 Unknown History Physical Exam 2 Vital Signs: Vital Signs: Last Vital Signs Temp 98.1 F 08/23/24 16:00 Pulse 89 08/23/24 16:00 Resp 12 08/23/24 16:00 BP 104/69 08/23/24 16:00 Pulse Ox 97 08/23/24 16:00 O2 Del Method Room Air 08/23/24 16:00 BMI result Body Mass Index 24.6 General: Not in any acute distress, ill appearing and tired appearing Nutritional Appearance: well nourished and overweight Eyes: appearance normal, icterus present bilaterally Neck: No lymphadenopathy, no thyromegaly Resp: bilateral air entry equal, occasional added sounds present Cardio: Regular rate, regular rhythm; Heart sounds: S1 normal heart sound present and S2 normal heart sound present GI: soft, nontender, no guarding, no hepatosplenomegaly : bladder normal to inspection, bladder normal to palpation, no renal angle tenderness Skin: no rashes or lesions noted and elasticity normal, skin jaundiced Neuro: oriented to person, oriented to place, oriented to time and moves all extremities Neuro: Cranial nerves: No Normal hearing present Results Labs 08/23/24 10:44 08/23/24 14:58 Labs: Laboratory Results - last 24 hr 08/23/24 10:44 MCV 93.8 MCH 35.2 H MCHC 37.5 H RDW 15.0 Plt Count 140 L D MPV 9.5 Immature Gran % (Auto) 0.7 H Neut % (Auto) 76.3 H Lymph % (Auto) 8.8 L [place] % (Auto) 13.1 H Eos % (Auto) 0.9 Baso % (Auto) 0.2 Lymph # (Auto) 0.5 L [place] # (Auto) 0.7 Eos # (Auto) 0.1 Baso # (Auto) 0.0 Abs Immat Gran (auto) 0.04 H Absolute Neuts (auto) 4.3 Absolute Nucleated RBC 0.000 Nucleated RBC % (auto) 0.0 Anion Gap 20 Estim Creat Clear Calc 147.3 Estimated GFR > 60 Random Glucose 87 Calcium 8.0 L Total Bilirubin 13.0 H Direct Bilirubin 8.4 H AST 394 H ALT 119 H Alkaline Phosphatase 314 H Total Protein 6.8 Albumin 2.9 L Lipase 43 Imaging Radiologist's Impressions: Impressions Head CT 08/23/24 11:13 IMPRESSION: No acute intracranial abnormality. Electronically signed by: Dashawn Paniagua MD 08/23/2024 12:14 PM EDT RP Chest X-Ray 08/23/24 11:28 IMPRESSION: No acute abnormality. Electronically signed by: Dashawn Paniagua MD 08/23/2024 12:06 PM EDT RP Abdomen/Pelvis CT 08/23/24 11:45 IMPRESSION: Diffuse small and large bowel wall thickening possibly related to surrounding ascites. Infectious and inflammatory etiologies cannot be excluded. Advise clinical correlation. Severe hepatic steatosis and hepatomegaly. Large ascites. Possible sludge in the gallbladder. Electronically signed by: Dashawn Paniagua MD 08/23/2024 12:26 PM EDT Assessment and Plan (1) Acute alcoholic hepatitis: Status: Acute (2) Jaundice: Status: Acute (3) Acute hyponatremia: Status: Acute (4) Pancytopenia: Status: Acute (5) Alcohol intoxication: Qualifiers: Complication of substance-induced condition: uncomplicated Qualified Code(s): F10.920 - Alcohol use, unspecified with intoxication, uncomplicated Status: Acute Plan Alcoholic hepatitis: Presented with bilirubin of 8, AST ALT elevated 394 and 119 respectively. We will start the patient on prednisolone for the management of alcoholic hepatitis, pending INR 2 count discrimination score We will start on lactulose to improve bilirubin level We will get ultrasound of the right upper quadrant CT abdomen suggestive of severe hepatic steatosis and large ascites Acute hyponatremia: We will get urine sodium, urine osmolality and uric acid levels Possibly due to beer potomania Sodium 119 upon presentation, currently on LR drip. Target sodium is below 126 until tomorrow morning We will closely monitor BMP q.4 hours Pancytopenia: Possibly secondary to splenomegaly from underlying possible cirrhosis Hemoglobin 12, platelet count 140. We will continue to closely monitor Alcohol withdrawal: Early signs of alcohol withdrawal in the form of tremors Received phenobarbital in the ED, we will withhold further phenobarbital given his liver dysfunction We will start on a low-dose chlordiazepoxide and as needed IM phenobarbital low- dose. Prophylaxis: Lovenox, famotidine Total time managing care of this patient today: 40 minutes.
[2024-08-23 16:19] LABS: Uric Acid 3.2 mg/dL (3.4-7.0)
[2024-08-23 17:02] LABS: INTERNATIONAL NORM RATIO 1.5 (0.9-1.1); Prothrombin Time 17.7 SEC (10.9-12.4)
[2024-08-23 18:15] LABS: Appearance Urine Cloudy; Color Urine Dark Yellow; Glucose Urine UA Negative (Negative); Leukocyte Esterase Urine Small (1+) (Negative); Nitrite Urine Positive (Negative); UMIC TRIGGER UA YES; UMIC TRIGGER UACC YES; Urine Blood Negative (Negative); Urine Ketones 40 mg/dL (Negative); Urine Protein Trace mg/dL (Neg-Trace)
[2024-08-23 18:30] LABS: Bacteria Urine None Seen (None Seen); RBC Urine 0-2 /HPF (0-2); Squamous Epithelial Cell Urine 0-2 /HPF (0-2); UACC Culture Trigger YES; WBC Urine 0-5 /HPF (0-5)
[2024-08-23 19:05] LABS: Osmolality Urine 471 mosm/kg (373-1093)
[2024-08-23 19:11] LABS: Total Protein Urine Random 18 mg/dL (<12)
[2024-08-23 19:26] LABS: Sodium Urine Random < 20.0 mmol/L
[2024-08-23 19:27] LABS: Creatinine Urine 171.55 mg/dL
[2024-08-23] MEDS: Lactated Ringers 1,000 ML 75 ML IVCONT (20:35)
[2024-08-23 21:51] LABS: Alanine Aminotransferase 107 U/L (0-40); Albumin Level 2.6 g/dL (3.5-5.0); Alkaline Phosphatase 256 U/L (39-117); Anion Gap 19 (12-20); Aspartate Amino Transferase 341 U/L (5-37); Bilirubin Total 12.7 mg/dL (0.0-1.0); Blood Urea Nitrogen 6 mg/dL (9-16); Carbon Dioxide 17 mmol/L (22-29); Chloride 85 mmol/L (96-108); Creatinine Clr Calc Pharmacy 162.8; Estimated Glomerular Filt Rate > 60; Glucose Random 116 mg/dL (60-115); Potassium 3.7 mmol/L (3.3-5.1); Sodium 117 mmol/L (135-145); Total Protein 6.3 g/dL (6.5-8.0)
[2024-08-23] MEDS: Thiamine HCL 100 MG TABLET PO (22:21)
[2024-08-23 22:23] LABS: Magnesium 1.8 mg/dL (1.6-2.6); Phosphorus 2.4 mg/dL (2.7-4.5)
[2024-08-23] MEDS: Albumin Human 25 % 100 ML IV ×2 (22:26→23:57)
[2024-08-23 22:50] LABS: Ethanol < 10 mg/dL
[2024-08-23] MEDS: Potassium Phosphate/NS 15 MMOL/250 ML PLAST..BAG 62.5 MMOL IV (22:59)
[2024-08-23 23:01] LABS: Osmolality, Serum 255 mosm/kg (281-305)
[2024-08-23] MEDS: Magnesium Sulfate/D5W 1 GM/100 ML PIGGYBACK IV (23:06)
[2024-08-24] VITALS (27 sets, daily range): BP systolic 90–120; BP diastolic 52–92; PULSE 79–115; RESP 9–20; TEMP 36.4–37.2; O2SAT 91–99; BMI 25.2
--- NOTE | 2024-08-24 00:33 | PC.NURSE ---
Addendum entered by Blanco Canchola RN 08/24/24 07:07: KPO4 RATE DECREASED TO 30.7 CC/HR PER ICU PA Addendum entered by Blanco Canchola RN 08/24/24 04:56: 4am CHEMISTRY RESULTS REVIEWED WITH ICU PA...2ND BAG KPO4/NS 0.9% HUNG NOW PER MAR PER ICU PA Addendum entered by Blanco Canchola RN 08/24/24 03:20: FIRST BAG KPO4 15 MMOL INFUSED...2ND BAG HELD UNTIL FOLLOW-UP 4AM LAB RESULTS REVIEWED PER ICU PA Original Note: CARE ASSUMED 7PM..AWAKE..ALERT..ORIENTED X3..FLAT AFFECT..MILD TREMORS REMAIN TO ARMS/HANDS..SCHEDULED LIBRIUM PO GIVEN PER DEC...REMAINS WITH MULTIPLE BRUISES AND OLD ABRASIONS TO EXTREMETIES AND TORSO PRESENT ON ADMISSION PER SHIFT REPORT...STATED I'VE FALLEN A NUMBER OF TIMES AT HOME ..BED ALARM REMAINS ENGAGED....FOLLOW-UP SODIUM LEVEL 117..ICU PA HELD LR 75 CC/HR...CONTINUES 1000ML PO FLUID RESTRICTION.. Mg/PO4/ETOH LEVELS DRAWN...THIAMINE 100MG PO X1 GIVEN..FOR DAILY MVI PO..BP MARGINAL THIS EVENING....ALBUMEN 25 GRAMS X2 BAGS...MGSO4 1 GRAM IV PER DEC...2 BAGS KPO4 15MMOL ORDERED..PER ICU PA TO HOLD 2ND BAG OF KPO4 AND DRAW AM LABS 4AM AND TO REVIEW RESULTS BEFORE HANGING 2ND BAG..PURWIK EXTERNAL CATHETER BAG WITH ORANGE-BROWN URINE..DENIES NAUSEA OR DISCOMFORT
[2024-08-24 04:21] LABS: Basophils Percent Auto 0.7 % (0-2); Eosinophils Percent Auto 0.7 % (0-4); Hematocrit 24.2 % (42.0-52.0); Imm Gran Abs Auto 0.04 X10*3/uL (0.00-0.03); Imm Gran Pct Auto 0.9 % (0.0-0.4); Lymphocytes Absolute Auto 0.9 X10*3/uL (1.2-4.9); Lymphocytes Percent Auto 19.5 % (20-40); Mean Corpuscular Volume 92.4 fL (80.0-98.0); Mean Platelet Volume 9.3 fL (9.4-12.4); Monocytes Absolute Auto 0.7 X10*3/uL (0.1-1.2); Monocytes Percent Auto 14.3 % (2-11); Neutrophils Percent Auto 63.9 % (45-73); Red Blood Count 2.62 X10*6/uL (4.60-5.80); SCAN SMEAR FLAG 1; White Blood Count 4.6 X10*3/uL (4.8-10.8)
[2024-08-24 04:37] LABS: Alanine Aminotransferase 82 U/L (0-40); Albumin Level 2.8 g/dL (3.5-5.0); Alkaline Phosphatase 222 U/L (39-117); Anion Gap 12 (12-20); Aspartate Amino Transferase 271 U/L (5-37); Bilirubin Total 11.9 mg/dL (0.0-1.0); Blood Urea Nitrogen 5 mg/dL (9-16); Calcium 8.3 mg/dL (8.4-10.2); Carbon Dioxide 26 mmol/L (22-29); Chloride 87 mmol/L (96-108); Creatinine Clr Calc Pharmacy 142.8; Estimated Glomerular Filt Rate > 60; Glucose Random 97 mg/dL (60-115); Potassium 3.1 mmol/L (3.3-5.1); Sodium 122 mmol/L (135-145); Total Protein 5.7 g/dL (6.5-8.0)
[2024-08-24 04:46] LABS: Hemoglobin 8.1 g/dl (14.0-18.0); Mean Corpuscular Hemoglobin 30.9 pg (27.0-33.0); Platelet Count 91 X10*3/uL (160-400)
[2024-08-24 04:47] LABS: MANUAL DIFF FLAG NO; Mean Corpuscular HGB Conc 33.5 g/dl (31.0-36.0)
[2024-08-24] MEDS: Potassium Phosphate/NS 15 MMOL/250 ML PLAST..BAG 62.5 MMOL IV ×2 (04:50→22:31)
[2024-08-24] MEDS: prednisoLONE sodium phosphate 15 MG/5 ML SOLUTION 40 MG PO (08:27)
[2024-08-24] MEDS: Folic Acid 1 MG TABLET PO (08:28)
[2024-08-24] MEDS: Famotidine/PF 20 MG/2 ML VIAL IVPUSH ×2 (08:28→20:03)
[2024-08-24] MEDS: chlordiazePOXIDE HCl 25 MG CAPSULE PO ×2 (08:28→20:03)
[2024-08-24] MEDS: Multivitamin TABLET 1 TAB PO (08:28)
--- NOTE | 2024-08-24 08:31 | PM.CCPN ---
Subjective Subjective Date of Service: 08/24/24 Critical Care Time (minutes): 35 Comment: No new events overnight, sodium slowly improving, up to 122 this morning with fluid restriction Physical Exam Vital Signs: Vital Signs: Last Vital Signs Temp 98.1 F 08/24/24 08:00 Pulse 99 08/24/24 08:00 Resp 18 08/24/24 08:00 BP 90/71 08/24/24 08:00 Pulse Ox 94 08/24/24 08:00 O2 Del Method Room Air 08/24/24 08:00 BMI result Body Mass Index 25.2 General: Not in any acute distress, ill appearing Nutritional Appearance: well nourished and overweight Eyes: appearance normal, both eyes and all related structures; Alignment and Position: alignment normal and position normal, icteric Neck: No lymphadenopathy, no thyromegaly Resp: bilateral air entry equal, occasional added sounds present Cardio: Regular rate, regular rhythm; Heart sounds: S1 normal heart sound present and S2 normal heart sound present GI: soft, nontender, no guarding, no hepatosplenomegaly : bladder normal to inspection, bladder normal to palpation, no renal angle tenderness Skin: no rashes or lesions noted and elasticity normal, bruises all over his body and scabs Neuro: oriented to person, oriented to place, oriented to time and moves all extremities Objective Data Labs 08/24/24 04:07 08/24/24 04:07 Labs: Laboratory Results - last 24 hr 08/23/24 08/23/24 08/23/24 10:44 12:43 14:58 WBC 5.6 RBC 3.41 L Hgb 12.0 L Hct 32.0 L MCV 93.8 MCH 35.2 H MCHC 37.5 H RDW 15.0 Plt Count 140 L D MPV 9.5 Immature Gran % (Auto) 0.7 H Neut % (Auto) 76.3 H Lymph % (Auto) 8.8 L [place] % (Auto) 13.1 H Eos % (Auto) 0.9 Baso % (Auto) 0.2 Lymph # (Auto) 0.5 L [place] # (Auto) 0.7 Eos # (Auto) 0.1 Baso # (Auto) 0.0 Abs Immat Gran (auto) 0.04 H Absolute Neuts (auto) 4.3 Absolute Nucleated RBC 0.000 Nucleated RBC % (auto) 0.0 Hold Purple Top PT INR Sodium 118 L* 118 L* 119 L* Potassium 4.0 Chloride 82 L Carbon Dioxide 20 L Anion Gap 20 BUN 5 L Creatinine 0.63 Estim Creat Clear Calc 147.3 Estimated GFR > 60 Random Glucose 87 Osmolality Uric Acid 3.2 L Calcium 8.0 L Phosphorus Magnesium Total Bilirubin 13.0 H Direct Bilirubin 8.4 H AST 394 H ALT 119 H Alkaline Phosphatase 314 H Total Protein 6.8 Albumin 2.9 L Lipase 43 Urine Color Urine Appearance Urine pH Ur Specific [place] Urine Protein Urine Glucose (UA) Urine Ketones Urine Blood Urine Nitrite Ur Leukocyte Esterase Urine RBC Urine WBC Ur Squamous Epith Cells Urine Bacteria Hyaline Casts Urine Osmolality U Random Total Protein Ur Random Sodium Urine Creatinine Ethyl Alcohol 08/23/24 08/23/24 08/23/24 16:49 17:45 21:26 WBC RBC Hgb Hct MCV MCH MCHC RDW Plt Count MPV Immature Gran % (Auto) Neut % (Auto) Lymph % (Auto) [place] % (Auto) Eos % (Auto) Baso % (Auto) Lymph # (Auto) [place] # (Auto) Eos # (Auto) Baso # (Auto) Abs Immat Gran (auto) Absolute Neuts (auto) Absolute Nucleated RBC Nucleated RBC % (auto) Hold Purple Top SEE NOTE PT 17.7 H INR 1.5 H Sodium 117 L* Potassium 3.7 Chloride 85 L Carbon Dioxide 17 L Anion Gap 19 BUN 6 L Creatinine 0.57 Estim Creat Clear Calc 162.8 Estimated GFR > 60 Random Glucose 116 H Osmolality Uric Acid Calcium 8.0 L Phosphorus 2.4 L Magnesium 1.8 Total Bilirubin 12.7 H Direct Bilirubin AST 341 H ALT 107 H Alkaline Phosphatase 256 H Total Protein 6.3 L Albumin 2.6 L Lipase Urine Color Dark Yellow Urine Appearance Cloudy Urine pH 6.0 Ur Specific [place] 1.020 Urine Protein Trace Urine Glucose (UA) Negative Urine Ketones 40 Urine Blood Negative Urine Nitrite Positive H Ur Leukocyte Esterase Small (1+) H Urine RBC 0-2 Urine WBC 0-5 Ur Squamous Epith Cells 0-2 Urine Bacteria None Seen Hyaline Casts 3-5 Urine Osmolality 471 U Random Total Protein 18 H Ur Random Sodium < 20.0 Urine Creatinine 171.55 Ethyl Alcohol 08/23/24 08/24/24 22:33 04:07 WBC 4.6 L RBC 2.62 L D Hgb 8.1 L D Hct 24.2 L D MCV 92.4 MCH 30.9 MCHC 33.5 RDW 15.0 Plt Count 91 L D MPV 9.3 L Immature Gran % (Auto) 0.9 H Neut % (Auto) 63.9 Lymph % (Auto) 19.5 L [place] % (Auto) 14.3 H Eos % (Auto) 0.7 Baso % (Auto) 0.7 Lymph # (Auto) 0.9 L [place] # (Auto) 0.7 Eos # (Auto) 0.0 Baso # (Auto) 0.0 Abs Immat Gran (auto) 0.04 H Absolute Neuts (auto) 3.0 Absolute Nucleated RBC 0.000 Nucleated RBC % (auto) 0.0 Hold Purple Top PT INR Sodium 122 L Potassium 3.1 L Chloride 87 L Carbon Dioxide 26 Anion Gap 12 BUN 5 L Creatinine 0.65 Estim Creat Clear Calc 142.8 Estimated GFR > 60 Random Glucose 97 Osmolality 255 L Uric Acid Calcium 8.3 L Phosphorus Magnesium Total Bilirubin 11.9 H Direct Bilirubin AST 271 H ALT 82 H Alkaline Phosphatase 222 H Total Protein 5.7 L Albumin 2.8 L Lipase Urine Color Urine Appearance Urine pH Ur Specific [place] Urine Protein Urine Glucose (UA) Urine Ketones Urine Blood Urine Nitrite Ur Leukocyte Esterase Urine RBC Urine WBC Ur Squamous Epith Cells Urine Bacteria Hyaline Casts Urine Osmolality U Random Total Protein Ur Random Sodium Urine Creatinine Ethyl Alcohol < 10 Progress Note: A&P Assessment and plan (1) Acute alcoholic hepatitis: Status: Acute (2) Acute hyponatremia: Status: Acute (3) Pancytopenia: Status: Acute (4) Alcohol intoxication: Status: Acute (5) Hypercholesterolemia: Status: Acute Plan Alcoholic hepatitis: Given underlying significant ascites and evidence of splenomegaly also possibly has cirrhosis Presented with bilirubin of 13, AST ALT elevated 394 and 119 respectively; this morning bilirubin is down to 11.9, AST ALT is also trending down Continue prednisolone for the management of alcoholic hepatitis, Maddrey's discrimination score 37.4 Continue lactulose to improve bilirubin level CT abdomen suggestive of severe hepatic steatosis and large ascites; bedside US did not show any big enough pocket for paracentesis, Acute hyponatremia: urine sodium <20, urine osmolality 471 Possibly due to beer potomania Sodium dropped with LR drip, so LR was stopped. We will closely monitor BMP q.4 hours. Pancytopenia: Possibly secondary to splenomegaly from underlying possible cirrhosis Hemoglobin dropped from 12g to 8g this morning, no obvious bleeding; we will repeat a CBC. Possibly needs upper GI endoscope to rule out varices Alcohol withdrawal: Early signs of alcohol withdrawal in the form of tremors and confusion Received phenobarbital in the ED, we will withhold further phenobarbital given his significant liver dysfunction Continue low-dose chlordiazepoxide and as needed IM phenobarbital low-dose. Prophylaxis: Lovenox, famotidine Quality Stroke Does the patient have a stroke diagnosis?: No VTE Prior VTE?: No VTE Risk Level:: Medical - low VTE Device Contraindication: N/A - Device Ordered VTE Drug Contraindication: N/A - Med Ordered
--- NOTE | 2024-08-24 09:36 | MHC.CM.PN ---
Pt not A&O x4: remains on Librium for ETOH w/d: attempted to contact pt's son, Zhang: no abilility to leave a VM. Call placed to pt's dtr Lizeth who states pt resides w/Zhang who is 24 and enables pt's drinking. She states pt is independent w/ADL's, has no services or DME and was arrested on 08/21 for DUI. He apparently had a court appearance 08/23 then was brought to the ED by his sister. Lizeth [place] state but is planning [place] flying to [place] in the next few days to assist w/pts care needs. She is unaware of pt's MD or if he has advanced directives. CM will follow pt for return of cognitive fx, assistance w/d/c planning and HCP completion. Pt will likely be able to return to home with outpt f/u.
[2024-08-24] MEDS: Lactulose 20 GM/30 ML SOLUTION PO ×2 (09:58→20:03)
--- NOTE | 2024-08-24 10:15 | PM.PNNEP ---
Subjective Subjective Date of Service: 08/24/24 Interval history: Pt is a 64 y/o male with a medical history of EToH abuse (states drinks 8-10 beers daily), hypertension, hx of transient global amnesia. Nephrology consulted for hyponatremia (sodium 118). He presents to the 08/23 he states because I'm jaundiced. He states this has not occurred before. He states he is urinating without pain/difficulty, last void was this a.m. He denies abdominal pain, difficulty breathing, chest pain He has significant purpura on all extremities, face- he states I fall a lot and this has been going on for some time. he states his urine has been dark in color for a few weeks now Sodium 118 on 08/23; 08/24 sodium 122 in a.m. - received LR at 75mL/hr overnight creatinine 0.63 on 08/23 arrival; urine protein/cr ~0.1 on 08/24 total bilirubin 13, direct 8.4, AST/ALT 394 and 119 He has had a chronic anemia since December 2023 with thrombocytopenia since December 2023 CT abd/pelvis 08/23: kidneys/ureters/bladder unremarkable. No hydronephrosis. Also shows severe hepatic steatosis and hepatomegaly with large ascites, in addition to diffuse small and large bowel wall thickening. Physical Exam Vital Signs: Vital Signs: Last Vital Signs Temp 98.1 F 08/24/24 08:00 Pulse 82 08/24/24 09:00 Resp 20 08/24/24 09:00 BP 97/76 08/24/24 09:00 Pulse Ox 95 08/24/24 09:00 O2 Del Method Room Air 08/24/24 09:00 BMI result Body Mass Index 25.2 Const: General: no acute distress, alert and awake Resp: Effort & Inspection: normal respiratory effort and able to speak in complete sentences Auscultation: clear to auscultation bilaterally Cardio: Rate: regular rate Rhythm: regular rhythm Heart sounds: S1 normal heart sound present and S2 normal heart sound present GI: Palpation (GI): Soft to palpation and nontender : Other: suprapubic dullness to percussion General: Yes no CVA tenderness Back/Spine/Pelvis: Back: no CVA tenderness Skin: General skin exam: jaundice, purpura (significant purpura and scabbing in all four extremities ) and scars Rashes: rashes noted (significant purpura and scabbing in all four extremities ) Neuro: Other: no tremors General: moves all extremities Extrem: General: Yes edema (+1 BLE edema ) Objective Data Labs 08/24/24 10:38 08/24/24 10:38 Labs: Laboratory Results - last 24 hr 08/23/24 08/23/24 08/23/24 10:44 12:43 14:58 WBC 5.6 RBC 3.41 L Hgb 12.0 L Hct 32.0 L MCV 93.8 MCH 35.2 H MCHC 37.5 H RDW 15.0 Plt Count 140 L D MPV 9.5 Immature Gran % (Auto) 0.7 H Neut % (Auto) 76.3 H Lymph % (Auto) 8.8 L [place] % (Auto) 13.1 H Eos % (Auto) 0.9 Baso % (Auto) 0.2 Lymph # (Auto) 0.5 L [place] # (Auto) 0.7 Eos # (Auto) 0.1 Baso # (Auto) 0.0 Abs Immat Gran (auto) 0.04 H Absolute Neuts (auto) 4.3 Absolute Nucleated RBC 0.000 Nucleated RBC % (auto) 0.0 Hold Purple Top PT INR Sodium 118 L* 118 L* 119 L* Potassium 4.0 Chloride 82 L Carbon Dioxide 20 L Anion Gap 20 BUN 5 L Creatinine 0.63 Estim Creat Clear Calc 147.3 Estimated GFR > 60 Random Glucose 87 Osmolality Uric Acid 3.2 L Calcium 8.0 L Phosphorus Magnesium Total Bilirubin 13.0 H Direct Bilirubin 8.4 H AST 394 H ALT 119 H Alkaline Phosphatase 314 H Total Protein 6.8 Albumin 2.9 L Lipase 43 Urine Color Urine Appearance Urine pH Ur Specific [place] Urine Protein Urine Glucose (UA) Urine Ketones Urine Blood Urine Nitrite Ur Leukocyte Esterase Urine RBC Urine WBC Ur Squamous Epith Cells Urine Bacteria Hyaline Casts Urine Osmolality U Random Total Protein Ur Random Sodium Urine Creatinine Ethyl Alcohol 08/23/24 08/23/24 08/23/24 16:49 17:45 21:26 WBC RBC Hgb Hct MCV MCH MCHC RDW Plt Count MPV Immature Gran % (Auto) Neut % (Auto) Lymph % (Auto) [place] % (Auto) Eos % (Auto) Baso % (Auto) Lymph # (Auto) [place] # (Auto) Eos # (Auto) Baso # (Auto) Abs Immat Gran (auto) Absolute Neuts (auto) Absolute Nucleated RBC Nucleated RBC % (auto) Hold Purple Top SEE NOTE PT 17.7 H INR 1.5 H Sodium 117 L* Potassium 3.7 Chloride 85 L Carbon Dioxide 17 L Anion Gap 19 BUN 6 L Creatinine 0.57 Estim Creat Clear Calc 162.8 Estimated GFR > 60 Random Glucose 116 H Osmolality Uric Acid Calcium 8.0 L Phosphorus 2.4 L Magnesium 1.8 Total Bilirubin 12.7 H Direct Bilirubin AST 341 H ALT 107 H Alkaline Phosphatase 256 H Total Protein 6.3 L Albumin 2.6 L Lipase Urine Color Dark Yellow Urine Appearance Cloudy Urine pH 6.0 Ur Specific [place] 1.020 Urine Protein Trace Urine Glucose (UA) Negative Urine Ketones 40 Urine Blood Negative Urine Nitrite Positive H Ur Leukocyte Esterase Small (1+) H Urine RBC 0-2 Urine WBC 0-5 Ur Squamous Epith Cells 0-2 Urine Bacteria None Seen Hyaline Casts 3-5 Urine Osmolality 471 U Random Total Protein 18 H Ur Random Sodium < 20.0 Urine Creatinine 171.55 Ethyl Alcohol 08/23/24 08/24/24 22:33 04:07 WBC 4.6 L RBC 2.62 L D Hgb 8.1 L D Hct 24.2 L D MCV 92.4 MCH 30.9 MCHC 33.5 RDW 15.0 Plt Count 91 L D MPV 9.3 L Immature Gran % (Auto) 0.9 H Neut % (Auto) 63.9 Lymph % (Auto) 19.5 L [place] % (Auto) 14.3 H Eos % (Auto) 0.7 Baso % (Auto) 0.7 Lymph # (Auto) 0.9 L [place] # (Auto) 0.7 Eos # (Auto) 0.0 Baso # (Auto) 0.0 Abs Immat Gran (auto) 0.04 H Absolute Neuts (auto) 3.0 Absolute Nucleated RBC 0.000 Nucleated RBC % (auto) 0.0 Hold Purple Top PT INR Sodium 122 L Potassium 3.1 L Chloride 87 L Carbon Dioxide 26 Anion Gap 12 BUN 5 L Creatinine 0.65 Estim Creat Clear Calc 142.8 Estimated GFR > 60 Random Glucose 97 Osmolality 255 L Uric Acid Calcium 8.3 L Phosphorus Magnesium Total Bilirubin 11.9 H Direct Bilirubin AST 271 H ALT 82 H Alkaline Phosphatase 222 H Total Protein 5.7 L Albumin 2.8 L Lipase Urine Color Urine Appearance Urine pH Ur Specific [place] Urine Protein Urine Glucose (UA) Urine Ketones Urine Blood Urine Nitrite Ur Leukocyte Esterase Urine RBC Urine WBC Ur Squamous Epith Cells Urine Bacteria Hyaline Casts Urine Osmolality U Random Total Protein Ur Random Sodium Urine Creatinine Ethyl Alcohol < 10 Procedures Date of Service Date of Service: 08/24/24 Assessment & Plan Assessment and plan (1) Acute hyponatremia: Status: Acute Plan Hyponatremia most likely secondary to beer potomania urine sodium is low so encourage continued hydration and urine osmolality not diluate as expected- will check serum cortisol and TSH urine osmolality 471, so may have other component contributing to his low sodium as well Continue LR at 75mL/hr- should not increase sodium level more than 10mmol/24hr period or 0.5mmol/L/hr hepatitis panel pending Will continue to monitor Discussed with Dr Wooten Time Spent With Patient Time: Total time managing care of this patient today ____ minutes. Progress Note: Quality Stroke Does the patient have a stroke diagnosis?: No
[2024-08-24 10:57] LABS: Hematocrit 27.1 % (42.0-52.0); Hemoglobin 10.2 g/dl (14.0-18.0)
[2024-08-24 11:19] LABS: Ammonia 100 umol/L (13-55)
[2024-08-24 11:24] LABS: Anion Gap 15 (12-20); Blood Urea Nitrogen 6 mg/dL (9-16); Calcium 8.4 mg/dL (8.4-10.2); Carbon Dioxide 24 mmol/L (22-29); Chloride 89 mmol/L (96-108); Creatinine Clr Calc Pharmacy 123.7; Estimated Glomerular Filt Rate > 60; Glucose Random 117 mg/dL (60-115); Potassium 3.5 mmol/L (3.3-5.1); Sodium 124 mmol/L (135-145)
[2024-08-24] MEDS: Enoxaparin Sodium 40 MG/0.4 ML SYRINGE SUBCUT (11:40)
[2024-08-24] MEDS: PHENobarbitaL sodium 65 MG/ML VIAL IM ×3 (11:40→20:06)
[2024-08-24 11:58] LABS: HBc Num1 0.14 S/CO (0.00-0.79); Hepatitis B Core Antibody Nonreactive (Nonreactive); ~HepC Num1 0.17 S/CO (0.00-0.79); ~Hepatitis C Antibody Nonreactive (Nonreactive)
[2024-08-24 11:59] LABS: Folate 5.2 ng/mL (> or = 4.0); Vitamin B12 1174 pg/mL (200-900)
--- NOTE | 2024-08-24 15:10 | PC.NURSE ---
Patient alert and oritented x2-3 at times, disoriented to situation, pt confused and attempting to get out of bed, removed right hand IV in attempt to get out of bed, patient redirected multiple times and one time dose of Pheno IM given with intermitted good effect, patient increased anxiety and confusion, PRN Pheno IM order placed per provider.
[2024-08-24 15:59] LABS: Anion Gap 15 (12-20); Blood Urea Nitrogen 6 mg/dL (9-16); Calcium 8.4 mg/dL (8.4-10.2); Carbon Dioxide 24 mmol/L (22-29); Chloride 89 mmol/L (96-108); Estimated Glomerular Filt Rate > 60; Glucose Random 138 mg/dL (60-115); Potassium 3.8 mmol/L (3.3-5.1); Sodium 124 mmol/L (135-145)
[2024-08-24] MEDS: Furosemide 40 MG/4 ML VIAL IVPUSH (16:44)
[2024-08-24] MEDS: Albumin Human 25 % 100 ML IV ×3 (16:45→23:51)
[2024-08-24 20:13] LABS: Anion Gap 21 (12-20); Blood Urea Nitrogen 6 mg/dL (9-16); Calcium 8.3 mg/dL (8.4-10.2); Carbon Dioxide 26 mmol/L (22-29); Chloride 86 mmol/L (96-108); Creatinine Clr Calc Pharmacy 152.1; Estimated Glomerular Filt Rate > 60; Glucose Random 125 mg/dL (60-115); Sodium 130 mmol/L (135-145)
[2024-08-24 20:20] LABS: Albumin Level 3.2 g/dL (3.5-5.0); Magnesium 2.2 mg/dL (1.6-2.6); Phosphorus 1.9 mg/dL (2.7-4.5)
[2024-08-24 20:39] LABS: Albumin Level 3.4 g/dL (3.5-5.0); Magnesium 2.1 mg/dL (1.6-2.6); Phosphorus 2.1 mg/dL (2.7-4.5)
[2024-08-24] MEDS: Lactulose 20 GM/30 ML SOLUTION 40 GM PO (22:30)
[2024-08-24 23:48] LABS: Anion Gap 29 (12-20); Blood Urea Nitrogen 5 mg/dL (9-16); Calcium 7.5 mg/dL (8.4-10.2); Carbon Dioxide 23 mmol/L (22-29); Chloride 84 mmol/L (96-108); Creatinine Clr Calc Pharmacy 132.6; Estimated Glomerular Filt Rate > 60; Glucose Random 109 mg/dL (60-115); Potassium 2.3 mmol/L (3.3-5.1); Sodium 134 mmol/L (135-145)
[2024-08-24] MEDS: 0.9 % Sodium Chloride Flush 3 ML SYRINGE IVFLUSH (23:51)
[2024-08-25] VITALS (15 sets, daily range): BP systolic 104–126; BP diastolic 69–93; PULSE 75–96; RESP 11–20; TEMP 36.2–37.1; O2SAT 92–98; BMI 25.3
[2024-08-25] MEDS: Lactulose 20 GM/30 ML SOLUTION 40 GM PO ×3 (00:12→04:54)
[2024-08-25] MEDS: Potassium Chloride ER 20 MEQ TAB.ER.PRT 40 MEQ PO ×2 (00:12→06:41)
[2024-08-25] MEDS: chlordiazePOXIDE HCl 25 MG CAPSULE 50 MG PO ×4 (00:12→21:09)
[2024-08-25] MEDS: PHENobarbitaL sodium 65 MG/ML VIAL IM ×2 (02:37→18:50)
[2024-08-25] MEDS: Potassium Phosphate/NS 15 MMOL/250 ML PLAST..BAG 62.5 MMOL IV (02:37)
[2024-08-25 05:27] LABS: MANUAL DIFF FLAG NO
[2024-08-25 05:30] LABS: Basophils Percent Auto 0.2 % (0-2); Hematocrit 25.4 % (42.0-52.0); Hemoglobin 9.4 g/dl (14.0-18.0); Imm Gran Abs Auto 0.06 X10*3/uL (0.00-0.03); Imm Gran Pct Auto 1.2 % (0.0-0.4); Lymphocytes Absolute Auto 0.7 X10*3/uL (1.2-4.9); Lymphocytes Percent Auto 13.8 % (20-40); Mean Corpuscular Hemoglobin 34.8 pg (27.0-33.0); Mean Corpuscular Volume 94.1 fL (80.0-98.0); Mean Platelet Volume 9.3 fL (9.4-12.4); Monocytes Absolute Auto 0.5 X10*3/uL (0.1-1.2); Monocytes Percent Auto 10.8 % (2-11); Neutrophils Absolute Auto 3.6 x10*3/uL (2.0-8.3); Platelet Count 106 X10*3/uL (160-400); Red Cell Distribution Width 15.7 % (11.0-16.0); White Blood Count 4.9 X10*3/uL (4.8-10.8)
[2024-08-25 06:01] LABS: Alanine Aminotransferase 72 U/L (0-40); Albumin Level 3.5 g/dL (3.5-5.0); Alkaline Phosphatase 219 U/L (39-117); Anion Gap 15 (12-20); Aspartate Amino Transferase 204 U/L (5-37); Bilirubin Total 12.5 mg/dL (0.0-1.0); Blood Urea Nitrogen 4 mg/dL (9-16); Calcium 8.3 mg/dL (8.4-10.2); Carbon Dioxide 27 mmol/L (22-29); Chloride 95 mmol/L (96-108); Creatinine Clr Calc Pharmacy 127.1; Estimated Glomerular Filt Rate > 60; Glucose Random 108 mg/dL (60-115); Magnesium 2.1 mg/dL (1.6-2.6); Phosphorus 2.7 mg/dL (2.7-4.5); Potassium 2.8 mmol/L (3.3-5.1); Sodium 134 mmol/L (135-145); Total Protein 6.3 g/dL (6.5-8.0)
[2024-08-25 06:02] LABS: Cortisol Random 2.6 ug/dL
[2024-08-25 06:16] LABS: TSH reflex Free T4 0.73 uIU/mL (0.32-4.0)
[2024-08-25] MEDS: Potassium Chloride/H20 10 MEQ/100 ML PIGGYBACK 100 MEQ IV ×4 (06:42→09:37)
[2024-08-25] MEDS: 0.9 % Sodium Chloride Flush 3 ML SYRINGE IVFLUSH ×3 (07:37→21:09)
[2024-08-25] MEDS: Lactulose 20 GM/30 ML SOLUTION PO ×2 (08:34→21:09)
[2024-08-25] MEDS: Multivitamin TABLET 1 TAB PO (08:35)
[2024-08-25] MEDS: prednisoLONE sodium phosphate 15 MG/5 ML SOLUTION 40 MG PO (08:35)
[2024-08-25] MEDS: Folic Acid 1 MG TABLET PO (08:35)
[2024-08-25] MEDS: Famotidine/PF 20 MG/2 ML VIAL IVPUSH ×2 (08:35→21:08)
--- NOTE | 2024-08-25 09:35 | P.PNCC_ITS ---
Subjective Subjective Date of Service: 08/25/24 Critical Care Time (minutes): 35 Comment: Episodes of confusion and jitteriness Sodium improved to 134 Did not have any bowel movements Hypokalemic to 2.8 on potassium replacement Physical Exam 2 Vital Signs: Vital Signs: Last Vital Signs Temp 98.8 F 08/25/24 08:00 Pulse 86 08/25/24 09:00 Resp 20 08/25/24 09:00 BP 122/88 08/25/24 09:00 Pulse Ox 95 08/25/24 09:00 O2 Del Method Room Air 08/25/24 09:00 O2 Flow Rate 1 08/24/24 22:00 BMI result Body Mass Index 25.3 General: Confused, ill appearing and tired appearing Nutritional Appearance: well nourished and overweight Eyes: appearance normal, scleral icterus present Neck: No lymphadenopathy, no thyromegaly Resp: bilateral air entry equal, occasional added sounds present Cardio: Regular rate, regular rhythm; Heart sounds: S1 normal heart sound present and S2 normal heart sound present GI: soft, nontender, distended, no guarding, no hepatosplenomegaly : bladder normal to inspection, bladder normal to palpation, no renal angle tenderness Skin: no rashes or lesions noted and elasticity normal Neuro: oriented to person, not oriented to place, not oriented to time and moves all extremities, follows all commands Objective Data Labs 08/25/24 05:05 08/25/24 05:05 Labs: Laboratory Results - last 24 hr 08/23/24 08/24/24 08/24/24 14:58 10:38 15:35 WBC RBC Hgb 10.2 L D Hct 27.1 L MCV MCH MCHC RDW Plt Count MPV Immature Gran % (Auto) Neut % (Auto) Lymph % (Auto) [place] % (Auto) Eos % (Auto) Baso % (Auto) Lymph # (Auto) [place] # (Auto) Eos # (Auto) Baso # (Auto) Abs Immat Gran (auto) Absolute Neuts (auto) Absolute Nucleated RBC Nucleated RBC % (auto) Hold Purple Top Sodium 124 L 124 L Potassium 3.5 3.8 Chloride 89 L 89 L Carbon Dioxide 24 24 Anion Gap 15 15 BUN 6 L 6 L Creatinine 0.75 0.64 Estim Creat Clear Calc 123.7 145.0 Estimated GFR > 60 > 60 Random Glucose 117 H 138 H Calcium 8.4 8.4 Phosphorus 1.9 L Magnesium 2.2 Total Bilirubin AST ALT Alkaline Phosphatase Ammonia 100 H Total Protein Albumin 3.2 L Vitamin B12 1174 H Folate 5.2 TSH Random Cortisol Hold Red Top See Note Hep B Core Total Ab Nonreactive Hepatitis C Ab (EIA) Nonreactive Blood Type O Positive Antibody Screen NEGATIVE 08/24/24 08/24/24 08/24/24 15:39 19:10 23:09 WBC RBC Hgb Hct MCV MCH MCHC RDW Plt Count MPV Immature Gran % (Auto) Neut % (Auto) Lymph % (Auto) [place] % (Auto) Eos % (Auto) Baso % (Auto) Lymph # (Auto) [place] # (Auto) Eos # (Auto) Baso # (Auto) Abs Immat Gran (auto) Absolute Neuts (auto) Absolute Nucleated RBC Nucleated RBC % (auto) Hold Purple Top SEE NOTE Sodium 130 L 134 L Potassium 3.0 L D 2.3 L* D Chloride 86 L 84 L Carbon Dioxide 26 23 Anion Gap 21 H 29 H BUN 6 L 5 L Creatinine 0.61 0.70 Estim Creat Clear Calc 152.1 132.6 Estimated GFR > 60 > 60 Random Glucose 125 H 109 Calcium 8.3 L 7.5 L D Phosphorus 2.1 L Magnesium 2.1 Total Bilirubin AST ALT Alkaline Phosphatase Ammonia Total Protein Albumin 3.4 L Vitamin B12 Folate TSH Random Cortisol Hold Red Top Hep B Core Total Ab Hepatitis C Ab (EIA) Blood Type Antibody Screen 08/25/24 05:05 WBC 4.9 RBC 2.70 L Hgb 9.4 L Hct 25.4 L MCV 94.1 MCH 34.8 H MCHC 37.0 H RDW 15.7 Plt Count 106 L MPV 9.3 L Immature Gran % (Auto) 1.2 H Neut % (Auto) 74.0 H Lymph % (Auto) 13.8 L [place] % (Auto) 10.8 Eos % (Auto) 0.0 Baso % (Auto) 0.2 Lymph # (Auto) 0.7 L [place] # (Auto) 0.5 Eos # (Auto) 0.0 Baso # (Auto) 0.0 Abs Immat Gran (auto) 0.06 H Absolute Neuts (auto) 3.6 Absolute Nucleated RBC 0.000 Nucleated RBC % (auto) 0.0 Hold Purple Top Sodium 134 L Potassium 2.8 L* D Chloride 95 L Carbon Dioxide 27 Anion Gap 15 BUN 4 L Creatinine 0.73 Estim Creat Clear Calc 127.1 Estimated GFR > 60 Random Glucose 108 Calcium 8.3 L D Phosphorus 2.7 Magnesium 2.1 Total Bilirubin 12.5 H AST 204 H ALT 72 H Alkaline Phosphatase 219 H Ammonia Total Protein 6.3 L Albumin 3.5 Vitamin B12 Folate TSH 0.73 Random Cortisol 2.6 Hold Red Top Hep B Core Total Ab Hepatitis C Ab (EIA) Blood Type Antibody Screen Microbiology Microbiology Results: Microbiology 08/23/24 17:45 Urine clean catch Urine Culture - Preliminary No growth to date. Progress Note: A&P Assessment and plan (1) Anxiety and depression: Status: Acute (2) Alcohol abuse: Status: Acute (3) Alcohol intoxication: Status: Acute (4) Dissociative amnesia with dissociative fugue: Status: Acute Plan Alcoholic hepatitis: Given underlying significant ascites and evidence of splenomegaly also possibly has cirrhosis Presented with bilirubin of 13, AST ALT elevated 394 and 119 respectively; slight increase in bilirubin this morning, despite multiple doses of p.o. lactulose patient did not have any bowel movements. We will do lactulose enema if he does not have any bowel movements Continue prednisolone for the management of alcoholic hepatitis, Maddrey's discrimination score 37.4 CT abdomen suggestive of severe hepatic steatosis and large ascites; bedside US did not show any big enough pocket for paracentesis, Acute hyponatremia: Sodium improved to 134, we will stop frequent BMPs urine sodium <20, urine osmolality 471 Possibly due to cirrhotic physiology as sodium improved with albumin and diuresis. Pancytopenia: Possibly secondary to splenomegaly from underlying possible cirrhosis Hemoglobin dropped from 12g on admission to 9 g, no obvious source of bleeding Possibly needs upper GI endoscope to rule out varices once more stable Alcohol withdrawal: Early signs of alcohol withdrawal in the form of tremors and confusion Continue chlordiazepoxide- dose has been increased and as needed IM phenobarbital low-dose. Acute hypokalemia: Potassium down to 2.8 possibly due to diuresis with Lasix. We will hold off on further Lasix Magnesium levels normal, 2.1 On potassium replacement protocol Prophylaxis: Lovenox, famotidine Quality Stroke Does the patient have a stroke diagnosis?: No VTE Prior VTE?: No VTE Risk Level:: Medical - low VTE Device Contraindication: N/A - Device Ordered VTE Drug Contraindication: N/A - Med Ordered
--- NOTE | 2024-08-25 11:18 | P.PNNP_ITS ---
Subjective Subjective Date of Service: 08/25/24 Interval history: Pt is a 64 y/o male with a medical history of EtOH abuse (states drinks 8-10 beers daily), hypertension, hx of transient global amnesia. Nephrology consulted for hyponatremia (sodium 118 on arrival). On presentation stated he came in due to new jaundiced skin which he has never had before He states he is urinating without pain/difficulty, last void was this a.m. He denies abdominal pain, difficulty breathing, chest pain He has significant purpura on all extremities, face- he states I fall a lot and this has been going on for some time. he states his urine has been dark in color for a few weeks now Sodium 118 on 08/23; 08/24 sodium 122 in a.m. with LR 75mL/hr that evening creatinine 0.63 on 08/23 arrival; urine protein/cr ~0.1 on 08/24 IVF have been discontinued and patient's sodium has improved with oral hydration today serum Na is 134 potassium is low (pt having frequent stools with lactulose), 2.8 this a.m. and potassium replaced, recheck pending total bilirubin 12.5, direct 8.4, AST/ALT 204 and 72 today, have been trending down He has had a chronic anemia since December 2023 with thrombocytopenia since December 2023 CT abd/pelvis 08/23: kidneys/ureters/bladder unremarkable. No hydronephrosis. Also shows severe hepatic steatosis and hepatomegaly with large ascites, in addition to diffuse small and large bowel wall thickening. Physical Exam 2 Vital Signs: Vital Signs: Last Vital Signs Temp 98.8 F 08/25/24 08:00 Pulse 87 08/25/24 10:00 Resp 20 08/25/24 10:00 BP 117/93 H 08/25/24 10:00 Pulse Ox 96 08/25/24 10:00 O2 Del Method Room Air 08/25/24 10:00 O2 Flow Rate 1 08/24/24 22:00 BMI result Body Mass Index 25.3 Const: General: no acute distress, alert and awake Resp: Effort & Inspection: normal respiratory effort and able to speak in complete sentences Auscultation: clear to auscultation bilaterally Cardio: Rate: regular rate Rhythm: regular rhythm Heart sounds: S1 normal heart sound present and S2 normal heart sound present GI: Palpation (GI): Soft to palpation and nontender : Other: suprapubic dullness to percussion General: Yes no CVA tenderness Back/Spine/Pelvis: Back: no CVA tenderness Skin: General skin exam: jaundice, purpura (significant purpura and scabbing in all four extremities ) and scars Rashes: rashes noted (significant purpura and scabbing in all four extremities ) Neuro: Other: no tremors General: moves all extremities Extrem: General: Yes edema (+1 BLE edema ) Objective Data Labs 08/25/24 05:05 08/25/24 11:04 Labs: Laboratory Results - last 24 hr 08/23/24 08/24/24 08/24/24 14:58 10:38 15:35 WBC RBC Hgb Hct MCV MCH MCHC RDW Plt Count MPV Immature Gran % (Auto) Neut % (Auto) Lymph % (Auto) [place] % (Auto) Eos % (Auto) Baso % (Auto) Lymph # (Auto) [place] # (Auto) Eos # (Auto) Baso # (Auto) Abs Immat Gran (auto) Absolute Neuts (auto) Absolute Nucleated RBC Nucleated RBC % (auto) Hold Purple Top Sodium 124 L 124 L Potassium 3.5 3.8 Chloride 89 L 89 L Carbon Dioxide 24 24 Anion Gap 15 15 BUN 6 L 6 L Creatinine 0.75 0.64 Estim Creat Clear Calc 123.7 145.0 Estimated GFR > 60 > 60 Random Glucose 117 H 138 H Calcium 8.4 8.4 Phosphorus 1.9 L Magnesium 2.2 Total Bilirubin AST ALT Alkaline Phosphatase Ammonia 100 H Total Protein Albumin 3.2 L Vitamin B12 1174 H Folate 5.2 TSH Random Cortisol Hep B Core Total Ab Nonreactive Hepatitis C Ab (EIA) Nonreactive Blood Type O Positive Antibody Screen NEGATIVE 08/24/24 08/24/24 08/24/24 15:39 19:10 23:09 WBC RBC Hgb Hct MCV MCH MCHC RDW Plt Count MPV Immature Gran % (Auto) Neut % (Auto) Lymph % (Auto) [place] % (Auto) Eos % (Auto) Baso % (Auto) Lymph # (Auto) [place] # (Auto) Eos # (Auto) Baso # (Auto) Abs Immat Gran (auto) Absolute Neuts (auto) Absolute Nucleated RBC Nucleated RBC % (auto) Hold Purple Top SEE NOTE Sodium 130 L 134 L Potassium 3.0 L D 2.3 L* D Chloride 86 L 84 L Carbon Dioxide 26 23 Anion Gap 21 H 29 H BUN 6 L 5 L Creatinine 0.61 0.70 Estim Creat Clear Calc 152.1 132.6 Estimated GFR > 60 > 60 Random Glucose 125 H 109 Calcium 8.3 L 7.5 L D Phosphorus 2.1 L Magnesium 2.1 Total Bilirubin AST ALT Alkaline Phosphatase Ammonia Total Protein Albumin 3.4 L Vitamin B12 Folate TSH Random Cortisol Hep B Core Total Ab Hepatitis C Ab (EIA) Blood Type Antibody Screen 08/25/24 05:05 WBC 4.9 RBC 2.70 L Hgb 9.4 L Hct 25.4 L MCV 94.1 MCH 34.8 H MCHC 37.0 H RDW 15.7 Plt Count 106 L MPV 9.3 L Immature Gran % (Auto) 1.2 H Neut % (Auto) 74.0 H Lymph % (Auto) 13.[address] [place] % (Auto) 10.8 Eos % (Auto) 0.0 Baso % (Auto) 0.2 Lymph # (Auto) 0.[address] [place] # (Auto) 0.5 Eos # (Auto) 0.0 Baso # (Auto) 0.0 Abs Immat Gran (auto) 0.06 H Absolute Neuts (auto) 3.6 Absolute Nucleated RBC 0.000 Nucleated RBC % (auto) 0.0 Hold Purple Top Sodium 134 L Potassium 2.8 L* D Chloride 95 L Carbon Dioxide 27 Anion Gap 15 BUN 4 L Creatinine 0.73 Estim Creat Clear Calc 127.1 Estimated GFR > 60 Random Glucose 108 Calcium 8.3 L D Phosphorus 2.7 Magnesium 2.1 Total Bilirubin 12.5 H AST 204 H ALT 72 H Alkaline Phosphatase 219 H Ammonia Total Protein 6.3 L Albumin 3.5 Vitamin B12 Folate TSH 0.73 Random Cortisol 2.6 Hep B Core Total Ab Hepatitis C Ab (EIA) Blood Type Antibody Screen Microbiology Microbiology Results: Microbiology 08/23/24 17:45 Urine clean catch Urine Culture - Preliminary No growth to date. Procedures Date of Service Date of Service: 08/25/24 Assessment & Plan Assessment and plan (1) Acute hyponatremia: Status: Acute Plan Hyponatremia most likely secondary to hypovolemia urine sodium is low, encourage continued hydration urine osmolality 471, so beer potomania less likely though may have partly contributed Continue to encourage oral hydration; should not increase sodium level more than 10mmol/24hr period or 0.5mmol/L/hr hepatitis panel pending (hep C nonreactive, B pending) Will continue to monitor Discussed with Dr Carter Time Spent With Patient Time: Total time managing care of this patient today ____ minutes. Progress Note: Quality Stroke Does the patient have a stroke diagnosis?: No
[2024-08-25 11:32] LABS: Anion Gap 13 (12-20); Blood Urea Nitrogen 4 mg/dL (9-16); Calcium 8.9 mg/dL (8.4-10.2); Carbon Dioxide 30 mmol/L (22-29); Chloride 96 mmol/L (96-108); Creatinine Clr Calc Pharmacy 128.9; Estimated Glomerular Filt Rate > 60; Glucose Random 106 mg/dL (60-115); Magnesium 2.1 mg/dL (1.6-2.6); Phosphorus 2.6 mg/dL (2.7-4.5); Sodium 136 mmol/L (135-145)
[2024-08-25] MEDS: Enoxaparin Sodium 40 MG/0.4 ML SYRINGE SUBCUT (11:57)
[2024-08-25] MEDS: Lactulose 320 GM/480 ML SOLUTION 200 GM PR (11:58)
--- NOTE | 2024-08-25 16:27 | PM.EVENT ---
Event Note Date of Service: 08/26/24 Event Note: Patient was downgraded from ICU this afternoon: Patient was being treated for alcohol withdrawal, hepatic encephalopathy, electrolytic abnormalities Physical exam: Patient is alert oriented x2 , easily redirectable Rest of the physical exam see ICU note. Assessment and plan as per ICU note: Will continue to monitor patient called with CIWA scale for alcohol withdrawal, continue alcohol withdrawal treatment, thiamine and folic acid. Urinary retention: Straight cath and PVR Monitor electrolytes, mental status, continue lactulose Time Spent With Patient Time: Total time managing care of this patient today ____ minutes.
[2024-08-25] MEDS: Thiamine HCL 200 MG in 0.9 % Sodium Chloride 100 ML 204 MG IV (16:37)
[2024-08-25 22:44] LABS: Hepatitis BE Antibody NON-REACTIVE (NON-REACTIVE)
[2024-08-26] VITALS: BP 134/73; PULSE 80; RESP 18; TEMP 36.2; O2SAT 95
[2024-08-26] MEDS: Thiamine HCL 200 MG in 0.9 % Sodium Chloride 100 ML 204 MG IV ×4 (00:22→23:56)
[2024-08-26 03:12] VITALS: BP 103/76; PULSE 77; RESP 18; TEMP 36.6; O2SAT 96
[2024-08-26 05:51] VITALS: BMI 25.5
[2024-08-26 07:45] VITALS: BP 99/71; PULSE 73; RESP 18; TEMP 36.4; O2SAT 98
[2024-08-26 08:15] LABS: Anion Gap 19 (12-20); Blood Urea Nitrogen 5 mg/dL (9-16); Calcium 8.6 mg/dL (8.4-10.2); Carbon Dioxide 22 mmol/L (22-29); Chloride 101 mmol/L (96-108); Creatinine Clr Calc Pharmacy 168.7; Estimated Glomerular Filt Rate > 60; Glucose Random 81 mg/dL (60-115); Sodium 139 mmol/L (135-145)
[2024-08-26 08:17] LABS: Potassium 2.9 mmol/L (3.3-5.1)
[2024-08-26] MEDS: Folic Acid 1 MG TABLET PO (08:33)
[2024-08-26] MEDS: Multivitamin TABLET 1 TAB PO (08:33)
[2024-08-26] MEDS: Lactulose 20 GM/30 ML SOLUTION PO ×3 (08:33→21:39)
[2024-08-26] MEDS: Potassium Chloride ER 20 MEQ TAB.ER.PRT 40 MEQ PO (08:37)
[2024-08-26] MEDS: prednisoLONE sodium phosphate 15 MG/5 ML SOLUTION 40 MG PO (08:37)
[2024-08-26] MEDS: Famotidine/PF 20 MG/2 ML VIAL IVPUSH ×2 (08:38→21:39)
[2024-08-26] MEDS: 0.9 % Sodium Chloride Flush 3 ML SYRINGE IVFLUSH ×4 (08:38→21:39)
[2024-08-26 08:48] LABS: Hepatitis BE Antigen NON-REACTIVE (NON-REACTIVE)
--- NOTE | 2024-08-26 10:46 | HO.WOUND ---
Wound Consult: Initial 64yr old?male admitted to [facility] [place] on 08/23/24 - See progress notes and H&P for detailed history.? Wound consult placed for bilaterla Heels assessments.? Patient agreeable to assessment and photo documentation.? Chart review reveals bruising and scabbing noted to BLLE and BLUE since admission. Of importance in Deep tissue pressure injury the pressure is exerted at the muscle-bone interface, but due to the resiliency of the skin, the color change is not immediate, in contrast to a bruise. The process leading to deep tissue pressure injury precedes the visible signs of purple or maroon skin by about 48 hours. Then about 24 hours later, the epidermis lifts and reveals a dark wound bed. This above reference from NPIAP is consistent with chart review detailed from nurse assessments. Left heel is noted to be intact red pink intact blanchable tissue - heel foam dressing in place and off loaded with pillows. Left Heel Right Heel Etiology: ?Resolving DTI - ?Present on Admission Measurements: 1cm x 1cm x 0cm Wound Bed: dry intact dark purple maroon nonblanchable well defined area Drainage / Odor: None Edges: ? well defined Danay wound: Intact pink blanchable tissue ? No Induration, Fluctuance or Warmth noted Pain: denies Goals of Treatment: ? Off load pressure and protect from friciton Recommendations: 1. Turn and Reposition every 2 hours and as needed for patient comfort.? Use pillows or wedges to support off loading positions. 2. Off Load all bony prominences with use of pillows and heel boots if needed.? Apply Preventative foams where needed. ? 3. Monitor for incontinence and moisture control, use barrier creams when needed for prevention and treatment. 4. Provide adequate and supplemental nutrition.? 5. Order low air loss mattress. 6. When applicable maintain blood glucose levels per Providers order. 7. Bilateral Heels - Apply skin prep to heels, apply heel foam dressings, change every 5-7 days and PRN. Off load heels from surface of bed with pillows. Re-consult wound care Nurse for wound deterioration or wound changes.
[2024-08-26 11:26] VITALS: BP 108/68; PULSE 74; RESP 18; TEMP 36.1; O2SAT 97
[2024-08-26] MEDS: chlordiazePOXIDE HCl 25 MG CAPSULE 50 MG PO ×2 (11:33→21:38)
[2024-08-26] MEDS: Enoxaparin Sodium 40 MG/0.4 ML SYRINGE SUBCUT (11:33)
[2024-08-26 13:26] VITALS: BMI 25.5
--- NOTE | 2024-08-26 15:33 | P.PNIM_ITS ---
Subjective Subjective Date of Service: 08/26/24 Interval History: Alcohol withdrawal, encephalopathy Review of Systems Mental status is somewhat improving Denies any chest pain or shortness of breath abdominal pain. Physical Exam 2 Vital Signs: Vital Signs: Last Vital Signs Temp 96.9 F 08/26/24 11:26 Pulse 74 08/26/24 11:26 Resp 18 08/26/24 11:26 BP 108/68 08/26/24 11:26 Pulse Ox 97 08/26/24 11:26 O2 Del Method Room Air 08/26/24 11:26 O2 Flow Rate 1 08/24/24 22:00 BMI result Body Mass Index 25.5 Appearance: Alert.? Oriented X2, Eyes: Pupils equal, round and reactive to light.? Sclera icteric.?. cvs: rrr, [id number]. res: clear to auscultation ,no rhonchii or wheezing abd: no rebound or guarding ,nt, bs present. ext pulses present , no cyanosis. neuro: nonfocal. Objective Data Active Medications Chlordiazepoxide HCl (Chlordiazepoxide Hcl 25 Mg Capsule) 50 mg PO BID [facility] Last Admin: 08/26/24 11:33 Dose: 50 mg Documented By: ELODIA Enoxaparin Sodium (Enoxaparin Sodium 40 Mg/0.4 Ml Syringe) 40 mg SUBCUT Q24H [facility] Last Admin: 08/26/24 11:33 Dose: 40 mg Documented By: ELODIA Famotidine (Famotidine/Pf 20 Mg/2 Ml Vial) 20 mg IVPUSH BID [facility] Last Admin: 08/26/24 08:38 Dose: 20 mg Documented By: ELODIA Folic Acid (Folic Acid 1 Mg Tablet) 1 mg PO DAILY [facility] Last Admin: 08/26/24 08:33 Dose: 1 mg Documented By: ELODIA Thiamine HCl 200 mg/ Sodium (Chloride) 102 mls @ 204 mls/hr IV Q8H [facility] Last Infusion: 08/26/24 09:41 Dose: Infused Documented By: ELODIA Lactulose (Lactulose 20 Gm/30 Ml Solution) 20 gm PO TID [facility] Last Admin: 08/26/24 08:33 Dose: 20 gm Documented By: ELODIA Multivitamins/Vitamin C (Multivitamin Tablet) 1 tab PO DAILY [facility] Last Admin: 08/26/24 08:33 Dose: 1 tab Documented By: ELODIA Ondansetron HCl (Ondansetron Hcl 4 Mg/2 Ml Vial) 4 mg IVPUSH Q8H PRN PRN Reason: Nausea and Vomiting Pharmacy Consult (Consult Rx Etoh Phenob Im/Po) 1 each MISCELLANE ONCE PRN; Protocol PRN Reason: Consult order Phenobarbital Sodium (Phenobarbital Sodium 65 Mg/Ml Vial) 65 mg IM ONCE PRN PRN Reason: Alcohol Withdrawal Last Admin: 08/25/24 02:37 Dose: 65 mg Documented By: ANA Phenobarbital Sodium (Phenobarbital Sodium 65 Mg/Ml Vial) 65 mg IM Q4H PRN PRN Reason: Alcohol Withdrawal Last Admin: 08/25/24 18:50 Dose: 65 mg Documented By: BISHOP Prednisolone Sodium Phosphate (Prednisolone Sodium Phosphate 15 Mg/5 Ml Solution) 40 mg PO DAILY [facility] Last Admin: 08/26/24 08:37 Dose: 40 mg Documented By: ELODIA Sodium Chloride (0.9 % Sodium Chloride Flush 3 Ml Syringe) 3 ml IVFLUSH QSHIFT [facility] Last Admin: 08/26/24 08:38 Dose: 3 ml Documented By: ELODIA Labs 08/25/24 05:05 08/26/24 07:41 Labs: Laboratory Results - last 24 hr 08/23/24 08/26/24 14:58 07:41 Anion Gap 19 Estim Creat Clear Calc 168.7 Estimated GFR > 60 Random Glucose 81 Calcium 8.6 Hepatitis Be Antibody NON-REACTIVE Hepatitis Be Antigen NON-REACTIVE Microbiology Microbiology Results: Microbiology 08/23/24 17:45 Urine Culture - Final Urine clean catch Assessment and Plan (1) Acute alcoholic hepatitis: Status: Acute (2) Jaundice: Status: Acute Plan 64-year-old gentleman with past medical history of alcohol abuse disorder, history of possible TIA admitted to the hospital in December for the same presents to the ED from his home as he noticed jaundice. Admitted for possible alcoholic hepatitis, hyponatremia, alcohol withdrawal . Hepatic encephalopathy in the setting of alcoholic liver cirrhosis Continue lactulose 20 mg t.i.d. Monitor mental status Goal BM is 3 a day Alcoholic hepatitis:Given underlying significant ascites and evidence of splenomegaly also possibly has cirrhosis Elevated bilirubin and liver enzymes-somewhat improving Continue prednisolone for the management of alcoholic hepatitis, Maddrey's discrimination score 37.4 CT abdomen suggestive of severe hepatic steatosis and large ascites; bedside US did not show any big enough pocket for paracentesis, Acute hyponatremia: Resolved, possible like to underlying liver disease. Pancytopenia: Possibly secondary to splenomegaly from underlying possible cirrhosis Hemoglobin dropped from 12g on admission to 9 g, no obvious source of bleed Gi eval. Alcohol withdrawal: Early signs of alcohol withdrawal in the form of tremors and confusion Continue chlordiazepoxide- dose has been increased and as needed IM phenobarbital low-dose. Acute hypokalemia: Potassium down to 2.9 possibly due to diuresis with Lasix. We will hold off on further Lasix Magnesium levels normal, 2.1 On potassium replacement protocol Prophylaxis: Lovenox, omeprazole. ongoing hospilisation need :Hepatic encephalopathy in the setting of alcoholic liver cirrhosis, Pancytopenia:moniter h/h closley and mental status ,as well Gi eval. Quality Stroke Does the patient have a stroke diagnosis?: No VTE Prior VTE?: No VTE Risk Level:: Medical - low VTE Device Contraindication: N/A - Device Ordered VTE Drug Contraindication: N/A - Med Ordered
[2024-08-26 16:00] VITALS: BP 95/73; PULSE 83; RESP 20; TEMP 36; O2SAT 97
[2024-08-26] MEDS: Potassium Chloride/H20 10 MEQ/100 ML PIGGYBACK 100 MEQ IV (16:19)
[2024-08-26] MEDS: Omeprazole 40 MG CAPSULE.DR PO (16:26)
--- NOTE | 2024-08-26 17:07 | P.CNGI_ITS ---
History of Present Illness Data of Consult Service Date: 08/26/24 Requesting physician: Minh Hilario Primary Care Provider: Unknown Physician HPI Reason for consult: hepatic encephalopathy,alcoholic hepatitis /cirrosis 64 YM with known alcohol abuse disorder, history of possible TIA admitted to ICU on 08/23/24 with jaundice, hyponatremia and pancytopenia. Pt denied vomiting, diarrhea, fever, or cough. He admitted to drinking 10-12 beer daily for the past several years, last took 3-4 beers on 08/22/24. Pt was started on prednisolone for alcoholic hepatitis (Maddrey's discrimination score was 37.4) Pt is somnolent and unable to provide a detailed history. Pt denies past hx of liver disease or hepatitis 08/23/[address] SCAN SHOWED: Diffuse small and large bowel wall thickening possibly related to surrounding ascites. Infectious and inflammatory etiologies cannot be excluded. Advise clinical correlation. Severe hepatic steatosis and hepatomegaly. Large ascites. Possible sludge in the gallbladder. Review of Systems 2 Review of Systems: Yes all other systems are reviewed and are negative [facility] Past Medical History Medical History No known health problems Family History Family History Father HTN (hypertension) Cancer History of heart attack Mother No problems noted. Surgical History Surgical History History of umbilical hernia repair Social History Social History Household Members: Family Household Members Other:: Son Housing: House Do you presently have visiting nurse or other home services: No Alcohol intake: current Alcohol intake frequency: 3 or more drinks per day Patient Tobacco Use Status: Never used Tobacco service: No Current occupational status: retired Meds Allergies Allergy/AdvReac Type Severity Reaction Status Date / Time No Known Allergies Allergy Verified 08/23/24 10:33 [No Known Allergies*] Active Medications: Current Medications Chlordiazepoxide HCl (Chlordiazepoxide Hcl 25 Mg Capsule) 50 mg PO BID [facility] Last Admin: 08/26/24 11:33 Dose: 50 mg Enoxaparin Sodium (Enoxaparin Sodium 40 Mg/0.4 Ml Syringe) 40 mg SUBCUT Q24H [facility] Last Admin: 08/26/24 11:33 Dose: 40 mg Famotidine (Famotidine/Pf 20 Mg/2 Ml Vial) 20 mg IVPUSH BID [facility] Last Admin: 08/26/24 08:38 Dose: 20 mg Thiamine HCl 200 mg/ Sodium (Chloride) 102 mls @ 204 mls/hr IV Q8H [facility] Last Infusion: 08/26/24 16:12 Dose: Infused Lactulose (Lactulose 20 Gm/30 Ml Solution) 20 gm PO TID [facility] Last Admin: 08/26/24 15:34 Dose: 20 gm Multivitamins/Vitamin C (Multivitamin Tablet) 1 tab PO DAILY [facility] Last Admin: 08/26/24 08:33 Dose: 1 tab Omeprazole (Omeprazole 40 Mg Capsule.Dr) 40 mg PO BID@0630,1630 [facility] Last Admin: 08/26/24 16:26 Dose: 40 mg Ondansetron HCl (Ondansetron Hcl 4 Mg/2 Ml Vial) 4 mg IVPUSH Q8H PRN PRN Reason: Nausea and Vomiting Pharmacy Consult (Consult Rx Etoh Phenob Im/Po) 1 each MISCELLANE ONCE PRN; Protocol PRN Reason: Consult order Phenobarbital Sodium (Phenobarbital Sodium 65 Mg/Ml Vial) 65 mg IM ONCE PRN PRN Reason: Alcohol Withdrawal Last Admin: 08/25/24 02:37 Dose: 65 mg Phenobarbital Sodium (Phenobarbital Sodium 65 Mg/Ml Vial) 65 mg IM Q4H PRN PRN Reason: Alcohol Withdrawal Last Admin: 08/25/24 18:50 Dose: 65 mg Prednisolone Sodium Phosphate (Prednisolone Sodium Phosphate 15 Mg/5 Ml Solution) 40 mg PO DAILY [facility] Last Admin: 08/26/24 08:37 Dose: 40 mg Sodium Chloride (0.9 % Sodium Chloride Flush 3 Ml Syringe) 3 ml IVFLUSH QSHIFT [facility] Last Admin: 08/26/24 15:33 Dose: 3 ml Home Medications ?Medication ?Instructions ?Recorded ?Confirmed ?Last Taken ?Type No Known Home Meds 08/23/24 08/23/24 Unknown History Physical Exam 2 Vital Signs: Vital Signs: Last Vital Signs Temp 96.8 F 08/26/24 16:00 Pulse 83 08/26/24 16:00 Resp 20 08/26/24 16:00 BP 95/73 08/26/24 16:00 Pulse Ox 97 08/26/24 16:00 O2 Del Method Room Air 08/26/24 16:00 O2 Flow Rate 1 08/24/24 22:00 BMI result Body Mass Index 25.5 Const: General: no acute distress, ill appearing (Chronically ill-appearing) and other (appears drowsy and arousable) Nutritional Appearance: average body habitus Orientation/consciousness: oriented to place and oriented to time HEENT: Head: Yes normal to inspection Ears: hearing grossly normal bilaterally Eyes: Sclerae: scleral abnormal (jaundice) Pupils: Equal, round and reactive pupils present Neck: Neck: Yes normal visual inspection Chest: Chest palpation & inspection: normal inspection of the chest Resp: Effort & Inspection: normal respiratory effort Auscultation: clear to auscultation bilaterally Cardio: Palpation: normal PMI Rate: regular rate Rhythm: regular rhythm Heart sounds: S1 normal heart sound present, S2 normal heart sound present and no murmurs GI: Inspection: Yes distended (Due to ascites) Palpation (GI): Soft to palpation, nontender and No hepatosplenomegaly present Auscultation: normal bowel sounds Rectal Exam - Male: Yes deferred Skin: General skin exam: no rashes or lesions noted and spider nevi Neuro: General: oriented to place, oriented to time, gait normal and moves all extremities Cranial nerves: Yes Equal, round and reactive pupils present Extrem: General: No pedal edema Psych: Appearance: grossly normal Mental Status: mental status grossly normal Results Labs 08/29/24 08:13 08/29/24 08:13 Labs: BMP 08/26/24 07:41 Sodium 139 Potassium 2.9 L* Chloride 101 Carbon Dioxide 22 BUN 5 L Creatinine 0.55 Calcium 8.6 Microbiology Microbiology Results: Microbiology 08/23/24 17:45 Urine clean catch Urine Culture - Final Assessment and Plan (1) Acute alcoholic hepatitis: Status: Acute (2) Ascites: Qualifiers: Ascites type: due to alcoholic cirrhosis Qualified Code(s): K70.31 - Alcoholic cirrhosis of liver with ascites Status: Acute Plan 64 YM with known alcohol abuse disorder, history of possible TIA admitted to ICU on 08/23/24 with jaundice, hyponatremia and pancytopenia and diagnosed with acute alcoholic hepatitis. Pt was started on prednisolone for alcoholic hepatitis (Maddrey's discrimination score was 37.4) Pt is somnolent and unable to provide a detailed history 08/23/[address] SCAN SHOWED: Diffuse small and large bowel wall thickening possibly related to surrounding ascites. Infectious and inflammatory etiologies cannot be excluded. Advise clinical correlation. Severe hepatic steatosis and hepatomegaly. Large ascites. Possible sludge in the gallbladder. RECOMMENDATIONS: 1. [place] of PO lactulose 4 times daily for hepatic encephalopathy and if able to tolerate PO, titrate to 3 soft BMs daily and DC lactulose enemas 2. Start spironolactone 50 mg PO daily for ascites - order placed 3. Continue prednisolone 40 mg daily for another 3 weeks and taper by 10 mg every week over 4 weeks 4. Check Hep B S antigen and ab, Iron studies, Vitamin B12 levels - added to am labs. 5. Referral to Addiction Medication to assist in quitting ETOH. 6. Pt needs FU in the GI clinic to establish care for management of alcoholic hepatitis ADDENDUM: Iron studies cw anemia of chronic disease with Ferritin of 2924 - order place for genetic screen for hemochromatosis. Procedures Date of Service Date of Service: 08/29/24
[2024-08-26 19:31] VITALS: BP 110/79; PULSE 73; RESP 19; TEMP 36.8; O2SAT 95
[2024-08-27] VITALS (8 sets, daily range): BP systolic 84–122; BP diastolic 67–89; PULSE 72–82; RESP 18–20; TEMP 36.1–37.1; O2SAT 93–100; BMI 25.4
[2024-08-27] MEDS: Omeprazole 40 MG CAPSULE.DR PO ×2 (06:02→16:06)
[2024-08-27] MEDS: Thiamine HCL 200 MG in 0.9 % Sodium Chloride 100 ML 204 MG IV ×3 (08:45→23:33)
[2024-08-27] MEDS: 0.9 % Sodium Chloride Flush 3 ML SYRINGE IVFLUSH ×3 (08:46→20:20)
[2024-08-27] MEDS: Albumin Human 25 % 100 ML IV ×3 (08:48→20:02)
[2024-08-27] MEDS: Famotidine/PF 20 MG/2 ML VIAL IVPUSH ×2 (08:48→20:27)
[2024-08-27] MEDS: Lactulose 20 GM/30 ML SOLUTION PO (08:51)
[2024-08-27] MEDS: Multivitamin TABLET 1 TAB PO (08:53)
[2024-08-27] MEDS: prednisoLONE sodium phosphate 15 MG/5 ML SOLUTION 40 MG PO (08:53)
[2024-08-27] MEDS: chlordiazePOXIDE HCl 25 MG CAPSULE 50 MG PO (08:53)
[2024-08-27 08:55] LABS: Hematocrit 28.4 % (42.0-52.0); Hemoglobin 10.2 g/dl (14.0-18.0)
[2024-08-27 09:07] LABS: Anion Gap 13 (12-20); Blood Urea Nitrogen 8 mg/dL (9-16); Calcium 8.4 mg/dL (8.4-10.2); Carbon Dioxide 25 mmol/L (22-29); Chloride 104 mmol/L (96-108); Creatinine Clr Calc Pharmacy 142.8; Estimated Glomerular Filt Rate > 60; Glucose Random 83 mg/dL (60-115); Potassium 3.4 mmol/L (3.3-5.1); Sodium 139 mmol/L (135-145)
--- NOTE | 2024-08-27 10:44 | MHC.CLN ---
F/U PT WITH INCREASED NUTRITION RISK R/T PRESSURE INJURY RESOLVING DTI PER WOUND NURSE DIET RX: DIET DOWNGRADED GRD M/S WITH HT LIQ PER FORM SETTER HELPER, 1800FLUID RESTRICTION REMAINS PT WITH INCREASED RISK FOR DEHYDRATION WITH THICKENED BEVERAGES-RECOMMEND D/C FLUID RESTRICTION-NOTED SERUM NA NOW WNL PT RECEIVING ENSURE TID TO PROMOTE WOUND HEALING SUPPLEMENT PROVIDES 1050KCALS, 60G PROTEIN, 576ML FREE WATER MONITOR PO INTAKE AND ENCOURAGE SUPPLEMENT D/C F.R.
[2024-08-27] MEDS: Enoxaparin Sodium 40 MG/0.4 ML SYRINGE SUBCUT (11:51)
--- NOTE | 2024-08-27 12:44 | MHC.CM.PN ---
Per rounds, pt. is improving, but not ready to DC. he requires ongoing treatment for Hepatic encephalopathy.
--- NOTE | 2024-08-27 14:06 | P.PNIM_ITS ---
Subjective Subjective Date of Service: 08/27/24 Interval History: Alcohol withdrawal, encephalopathy Review of Systems Mental status is somewhat improving Denies any chest pain or shortness of breath abdominal pain. Physical Exam 2 Vital Signs: Vital Signs: Last Vital Signs Temp 97.2 F 08/27/24 12:00 Pulse 73 08/27/24 12:00 Resp 20 08/27/24 12:00 BP 100/70 08/27/24 12:00 Pulse Ox 94 08/27/24 12:00 O2 Del Method Room Air 08/27/24 12:00 O2 Flow Rate 1 08/24/24 22:00 BMI result Body Mass Index 25.4 Appearance: Alert.? Oriented X2, Eyes: Pupils equal, round and reactive to light.? Sclera icteric/jaundice. cvs: rrr, [id number]. res: clear to auscultation ,no rhonchii or wheezing abd: no rebound or guarding ,nt, bs present. ext pulses present , no cyanosis. neuro: nonfocal. Objective Data Active Medications Chlordiazepoxide HCl (Chlordiazepoxide Hcl 25 Mg Capsule) 50 mg PO BID [facility] Last Admin: 08/27/24 08:53 Dose: 50 mg Documented By: COOPER Enoxaparin Sodium (Enoxaparin Sodium 40 Mg/0.4 Ml Syringe) 40 mg SUBCUT Q24H [facility] Last Admin: 08/27/24 11:51 Dose: 40 mg Documented By: ELDER Famotidine (Famotidine/Pf 20 Mg/2 Ml Vial) 20 mg IVPUSH BID [facility] Last Admin: 08/27/24 08:48 Dose: 20 mg Documented By: COOPER Thiamine HCl 200 mg/ Sodium (Chloride) 102 mls @ 204 mls/hr IV Q8H [facility] Last Infusion: 08/27/24 09:15 Dose: Infused Documented By: ELDER Albumin Human (Kedbumin 25 %) 100 mls @ 100 mls/hr IV Q6H [facility] Stop: 08/28/24 02:59 Last Admin: 08/27/24 13:29 Dose: 100 mls/hr Documented By: ELDER Lactulose (Lactulose 20 Gm/30 Ml Solution) 20 gm PO TID [facility] Last Admin: 08/27/24 08:51 Dose: 20 gm Documented By: COOPER Multivitamins/Vitamin C (Multivitamin Tablet) 1 tab PO DAILY [facility] Last Admin: 08/27/24 08:53 Dose: 1 tab Documented By: COOPER Omeprazole (Omeprazole 40 Mg Capsule.Dr) 40 mg PO BID@0630,1630 [facility] Last Admin: 08/27/24 06:02 Dose: 40 mg Documented By: MITESH Ondansetron HCl (Ondansetron Hcl 4 Mg/2 Ml Vial) 4 mg IVPUSH Q8H PRN PRN Reason: Nausea and Vomiting Pharmacy Consult (Consult Rx Etoh Phenob Im/Po) 1 each MISCELLANE ONCE PRN; Protocol PRN Reason: Consult order Phenobarbital Sodium (Phenobarbital Sodium 65 Mg/Ml Vial) 65 mg IM ONCE PRN PRN Reason: Alcohol Withdrawal Last Admin: 08/25/24 02:37 Dose: 65 mg Documented By: ANA Phenobarbital Sodium (Phenobarbital Sodium 65 Mg/Ml Vial) 65 mg IM Q4H PRN PRN Reason: Alcohol Withdrawal Last Admin: 08/25/24 18:50 Dose: 65 mg Documented By: BISHOP Prednisolone Sodium Phosphate (Prednisolone Sodium Phosphate 15 Mg/5 Ml Solution) 40 mg PO DAILY [facility] Last Admin: 08/27/24 08:53 Dose: 40 mg Documented By: COOPER Sodium Chloride (0.9 % Sodium Chloride Flush 3 Ml Syringe) 3 ml IVFLUSH QSHIFT [facility] Last Admin: 08/27/24 08:46 Dose: 3 ml Documented By: COOPER Labs 08/27/24 08:24 08/27/24 08:24 Labs: Laboratory Results - last 24 hr 08/27/24 08:24 Anion Gap 13 Estim Creat Clear Calc 142.8 Estimated GFR > 60 Random Glucose 83 Calcium 8.4 Assessment and Plan (1) Acute alcoholic hepatitis: Status: Acute (2) Pancytopenia: Status: Acute Plan 64-year-old gentleman with past medical history of alcohol abuse disorder, history of possible TIA admitted to the hospital in December for the same presents to the ED from his home as he noticed jaundice. Admitted for possible alcoholic hepatitis, hyponatremia, alcohol withdrawal . Hepatic encephalopathy in the setting of alcoholic liver cirrhosis Continue lactulose 20 mg t.i.d. Monitor mental status Goal BM is 3 a day Alcoholic hepatitis:Given underlying significant ascites and evidence of splenomegaly also possibly has cirrhosis Elevated bilirubin and liver enzymes-somewhat improving Continue prednisolone for the management of alcoholic hepatitis, Maddrey's discrimination score 37.4 CT abdomen suggestive of severe hepatic steatosis and large ascites; bedside US did not show any big enough pocket for paracentesis, Acute hyponatremia: Resolved, possible like to underlying liver disease. Pancytopenia: Possibly secondary to splenomegaly from underlying possible cirrhosis Hemoglobin dropped from 12g on admission to 9 g, no obvious source of bleed Gi eval. Alcohol withdrawal: Early signs of alcohol withdrawal in the form of tremors and confusion Continue chlordiazepoxide- dose has been increased and as needed IM phenobarbital low-dose. Acute hypokalemia: Potassium down to 2.9 possibly due to diuresis with Lasix. We will hold off on further Lasix Magnesium levels normal, 2.1 On potassium replacement protocol Prophylaxis: Lovenox, omeprazole. ongoing hospilisation need :Hepatic encephalopathy in the setting of alcoholic liver cirrhosis, Pancytopenia:moniter h/h closley and mental status ,as well Gi eval. Quality Stroke Does the patient have a stroke diagnosis?: No VTE Prior VTE?: No VTE Risk Level:: Medical - low VTE Device Contraindication: N/A - Device Ordered VTE Drug Contraindication: N/A - Med Ordered
--- NOTE | 2024-08-27 14:22 | PC.NURSE ---
Patient tolerated ground/honey thick lunch 1:1 feed without difficulty. Patient noticed to have continuos weak cough, oral suctioning provided - thick white. Patient continuing to remain drowsy since this morning, requiring multiple verbal attempts to obtain response but continuing to fall back asleep. Patient has no urine output - BS >659. SC placed per order without incident draining only 100cc dark darrin. . Current vitals: 98/71, HR 81. MD called to bedside. Patient requesting phone to call for a ride . Care ongoing.
[2024-08-27] MEDS: Lactulose 20 GM/30 ML SOLUTION 30 GM PO (16:05)
--- NOTE | 2024-08-27 17:23 | PC.NURSE ---
Addendum entered by Chelsea Trotter RN 08/27/24 23:42: Handoff report given to oncoming RN at 19:00. Blow Pit Operator assisted primary RN with enema when med became available. +effect/BM. Please see [facility] underwriter's shift assessment, tasks, and MAR for full details. Original Note: Assumed care of patient at 15:00. Pt is drowsy, arousable to voice and light touch, A&Ox4 answering questions appropriately and following commands at this time. On CIWA protocol. Po lactulose dose increased to 30gm from [address] Hilario. Pt tolerated this mixed in applesauce per honey thick diet with 1:1 feed using one spoonful at a time without coughing or other issues during administration. Abdomen remains softly distended, round, non-tender. LBM early this morning per chart review. Lactulose enemas q4h ordered by . Pharmacy contacted as med not stocked on floor. Pharmacist states will send diana. Bed alarm on and safety measures including camera continue. Call daams within reach and educated on use.
[2024-08-27] MEDS: Lactulose 320 GM/480 ML SOLUTION 200 GM PR (19:49)
--- NOTE | 2024-08-27 20:01 | MHC.SL.SWA ---
Speech Pathologist Impression: Risk of Aspiration, Oropharyngeal Dysphagia, Dysarthria Dysphasia Diet Status: Downgrade to NDD2/HTL Liquid Consistency and Strategies for Safe Swallow: Liquid Intake Recommendation: Honey Thick Liquid Intake Strategies: Small Sips No Straws Solid Food Consistency: Dietary Recommendations: Grnd/Mech Altered (NDD2) Additional Modifications to Solid Foods: Recommend DOWNGRADE to GROUND/MECH ALTERED (NDD2) diet and HONEY THICK liquids (NO STRAWS), pills to be given CRUSHED in PUREE. Strict aspiration precautions and 1:1 feeding. Oral Medication Intake: Crushed with Puree Please contact the pharmacy regarding appropriate crushable or liquid drug formulations that are available whenever modified delivery is recommended. Compensatory Strategies and Precautions to be Taken for Safe Swallow: Sitting Upright (90 deg) Double Swallow No Straw Small Bites and Sips Alternate Liquids/Solids Rate of Ingestion Change Oral Check Avoid Specific Foods Supervision While Eating and Drinking for Safe Swallow: Total Assistance (1:1) Foods to Avoid: Hard solids, mixed consistencies Swallowing Recommended Treatments: Compens. Strategy Educat. Recommendation for Speech: Inpatient Speech Therapy Comment: SCHEDULE ANALYST will continue to follow during inpatient stay to monitor tolerance of modified diet and to re-assess feeding needs. Patient will likely require continued speech therapy services for dysphagia at the next level of care. Frequency/Duration: Date Range for Service Req: Timeline to reassess: Life Teacher Clinican/Clinical Fellow: No Supervisory Statement: I have reviewed and agree with the student/clinical fellow's documentation: N/A Speech Language Pathologist: Valeria Sun M.A., CCC-SCHEDULE ANALYST
[2024-08-27] MEDS: chlordiazePOXIDE HCl 25 MG CAPSULE PO (20:27)
[2024-08-28] VITALS: BP 131/90; PULSE 78; RESP 14; TEMP 36.1; O2SAT 97
[2024-08-28] MEDS: Lactulose 320 GM/480 ML SOLUTION 200 GM PR ×3 (00:34→09:35)
[2024-08-28] MEDS: Albumin Human 25 % 100 ML IV (01:52)
[2024-08-28 04:00] VITALS: BP 113/82; PULSE 68; RESP 12; TEMP 35.9; O2SAT 97
[2024-08-28] MEDS: Omeprazole 40 MG CAPSULE.DR PO (05:31)
--- NOTE | 2024-08-28 06:36 | PC.NURSE ---
pt due to void ay 20:00. bladder scanned for 366ml. MD notified. ordered to straight cath. as pt straight cathed resistance was felt, catheter withdrawn and bright red blood was drawn. MD notifed, ordered to wait until 04:00 and if pt does not void, Dr. Flores will place kauffman catheter. kauffman catheter placed at 04:00, 400ml dark concentrated urine returned.
--- NOTE | 2024-08-28 06:45 | PM.EVENT ---
Event Note Date of Service: 08/28/24 Event Note: 4:15 AM - pt has been unable to void. Straight cath was difficult. Indwelling urinary catheter placed by myself. Urine noted to have minimal bloody upon insertion only, urine is dark due to bilirubin. Time Spent With Patient Time: Total time managing care of this patient today ____ minutes.
[2024-08-28 07:48] VITALS: BP 95/71; PULSE 85; RESP 16; TEMP 36.3; O2SAT 94
[2024-08-28] MEDS: prednisoLONE sodium phosphate 15 MG/5 ML SOLUTION 40 MG PO (08:57)
[2024-08-28] MEDS: Multivitamin TABLET 1 TAB PO (08:58)
[2024-08-28] MEDS: 0.9 % Sodium Chloride Flush 3 ML SYRINGE IVFLUSH ×3 (08:58→19:58)
[2024-08-28] MEDS: Thiamine HCL 200 MG in 0.9 % Sodium Chloride 100 ML 100 MG IV (08:59)
[2024-08-28] MEDS: chlordiazePOXIDE HCl 25 MG CAPSULE PO ×2 (09:24→20:03)
--- NOTE | 2024-08-28 10:42 | PC.NURSE ---
Lactulose AL administered this am , aneudy large amount of mucus was passed by the patient
[2024-08-28] MEDS: rifAXIMin 550 MG TABLET PO ×2 (11:12→19:58)
[2024-08-28 12:00] VITALS: BP 91/70; PULSE 69; RESP 20; TEMP 36.2; O2SAT 96
--- NOTE | 2024-08-28 12:59 | P.PNIM_ITS ---
Subjective Subjective Date of Service: 08/28/24 Interval History: alcohol withdrawal, hepatic encephalopathy Review of Systems menatl status improving no fever ? unclear if had enough bm's-staff advised to moniter closely overnight evnts noted-urinary retention Physical Exam 2 Vital Signs: Vital Signs: Last Vital Signs Temp 97.2 F 08/28/24 12:00 Pulse 69 08/28/24 12:00 Resp 20 08/28/24 12:00 BP 91/70 08/28/24 12:00 Pulse Ox 96 08/28/24 12:00 O2 Del Method Room Air 08/28/24 12:00 O2 Flow Rate 1 08/24/24 22:00 BMI result Body Mass Index 25.4 Appearance: Alert.? Oriented X2, Eyes: Pupils equal, round and reactive to light.? Sclera icteric/jaundice. cvs: rrr, [id number]. res: clear to auscultation ,no rhonchii or wheezing abd: no rebound or guarding ,nt, bs present. Gu-has kauffman ext pulses present , no cyanosis. neuro: nonfocal. Objective Data Active Medications Chlordiazepoxide HCl (Chlordiazepoxide Hcl 25 Mg Capsule) 25 mg PO BID [facility] Last Admin: 08/28/24 09:24 Dose: 25 mg Documented By: MAGDALENO Docusate Sodium (Docusate Sodium 100 Mg Capsule) 100 mg PO BID [facility] Enoxaparin Sodium (Enoxaparin Sodium 40 Mg/0.4 Ml Syringe) 40 mg SUBCUT Q24H [facility] Last Admin: 08/27/24 11:51 Dose: 40 mg Documented By: ELDER Thiamine HCl 200 mg/ Sodium (Chloride) 102 mls @ 204 mls/hr IV Q8H [facility] Last Infusion: 08/28/24 10:05 Dose: Infused Documented By: MAGDALENO Lactulose (Lactulose 320 Gm/480 Ml Solution) 200 gm GA Q4H [facility] Last Admin: 08/28/24 09:35 Dose: 200 gm Documented By: MAGDALENO Lactulose (Lactulose 20 Gm/30 Ml Solution) 30 gm PO QID [facility] Multivitamins/Vitamin C (Multivitamin Tablet) 1 tab PO DAILY [facility] Last Admin: 08/28/24 08:58 Dose: 1 tab Documented By: MAGDALENO Omeprazole (Omeprazole 20 Mg Capsule.) 20 mg PO BID@0630,1630 [facility] Ondansetron HCl (Ondansetron Hcl 4 Mg/2 Ml Vial) 4 mg IVPUSH Q8H PRN PRN Reason: Nausea and Vomiting Pharmacy Consult (Consult Rx Etoh Phenob Im/Po) 1 each MISCELLANE ONCE PRN; Protocol PRN Reason: Consult order Polyethylene Glycol (Polyethylene Glycol 3350 17 Gm Powd.Pack) 17 gm PO DAILY [facility] Prednisolone Sodium Phosphate (Prednisolone Sodium Phosphate 15 Mg/5 Ml Solution) 40 mg PO DAILY [facility] Last Admin: 08/28/24 08:57 Dose: 40 mg Documented By: MAGDALENO Rifaximin (Rifaximin 550 Mg Tablet) 550 mg PO BID [facility] Last Admin: 08/28/24 11:12 Dose: 550 mg Documented By: MAGDALENO Sodium Chloride (0.9 % Sodium Chloride Flush 3 Ml Syringe) 3 ml IVFLUSH QSHIFT [facility] Last Admin: 08/28/24 08:58 Dose: 3 ml Documented By: MAGDALENO Labs 08/27/24 08:24 08/27/24 08:24 Assessment and Plan (1) Acute alcoholic hepatitis: Status: Acute (2) Pancytopenia: Status: Acute Plan 64-year-old gentleman with past medical history of alcohol abuse disorder, history of possible TIA admitted to the hospital in December for the same presents to the ED from his home as he noticed jaundice. Admitted for possible alcoholic hepatitis, hyponatremia, alcohol withdrawal . Hepatic encephalopathy in the setting of alcoholic liver cirrhosis Continue lactulose 30 mg t.i.d.,also enema as needed encouarged for po intake Monitor mental status Goal BM is 3 a day Alcoholic hepatitis:Given underlying significant ascites and evidence of splenomegaly also possibly has cirrhosis Elevated bilirubin and liver enzymes-somewhat improving Continue prednisolone for the management of alcoholic hepatitis, Maddrey's discrimination score 37.4 CT abdomen suggestive of severe hepatic steatosis and large ascites; bedside US did not show any big enough pocket for paracentesis, Acute hyponatremia: Resolved, possible like to underlying liver disease. Pancytopenia: Possibly secondary to splenomegaly from underlying possible cirrhosis Hemoglobin dropped from 12g on admission to 9 g, no obvious source of bleed Gi eval pending. Alcohol withdrawal: Early signs of alcohol withdrawal in the form of tremors and confusion Continue chlordiazepoxide- dose has been increased and as needed IM phenobarbital low-dose. Acute hypokalemia:repleted and resolved. Prophylaxis: Lovenox, omeprazole. ongoing hospilisation need :Hepatic encephalopathy in the setting of alcoholic liver cirrhosis, Pancytopenia:moniter h/h closley and mental status ,as well Gi eval. Quality Stroke Does the patient have a stroke diagnosis?: No VTE Prior VTE?: No VTE Risk Level:: Medical - low VTE Device Contraindication: N/A - Device Ordered VTE Drug Contraindication: N/A - Med Ordered
[2024-08-28] MEDS: Lactulose 20 GM/30 ML SOLUTION 30 GM PO ×3 (13:04→20:03)
[2024-08-28] MEDS: polyethylene glycoL 3350 17 GM POWD.PACK PO (13:04)
[2024-08-28] MEDS: Docusate Sodium 100 MG CAPSULE PO ×2 (13:05→19:58)
[2024-08-28] MEDS: Spironolactone 25 MG TABLET 50 MG PO (14:18)
[2024-08-28 15:24] VITALS: BP 109/72; PULSE 62; RESP 20; TEMP 36.4; O2SAT 95
[2024-08-28] MEDS: Thiamine HCL 200 MG in 0.9 % Sodium Chloride 100 ML 204 MG IV (15:51)
[2024-08-28] MEDS: Omeprazole 20 MG CAPSULE.DR PO (15:51)
[2024-08-28] MEDS: Tamsulosin HCL 0.4 MG CAPSULE PO (19:58)
[2024-08-28 20:00] VITALS: BP 100/66; PULSE 89; RESP 19; TEMP 36.4; O2SAT 98
[2024-08-29] VITALS (23 sets, daily range): BP systolic 81–135; BP diastolic 48–90; PULSE 75–142; RESP 14–30; TEMP 26.4–37.7; O2SAT 66–100; BMI 23.9
[2024-08-29] MEDS: Thiamine HCL 200 MG in 0.9 % Sodium Chloride 100 ML 204 MG IV ×3 (00:35→16:14)
[2024-08-29] MEDS: Omeprazole 20 MG CAPSULE.DR PO (06:15)
[2024-08-29] MEDS: Spironolactone 25 MG TABLET 50 MG PO (07:37)
[2024-08-29] MEDS: Lactulose 20 GM/30 ML SOLUTION 30 GM PO (07:38)
[2024-08-29] MEDS: Multivitamin TABLET 1 TAB PO (07:38)
[2024-08-29] MEDS: rifAXIMin 550 MG TABLET PO (07:38)
[2024-08-29] MEDS: Docusate Sodium 100 MG CAPSULE PO (07:38)
[2024-08-29] MEDS: 0.9 % Sodium Chloride Flush 3 ML SYRINGE IVFLUSH ×3 (07:39→20:03)
[2024-08-29 08:31] LABS: Hematocrit 33.2 % (42.0-52.0); Hemoglobin 11.6 g/dl (14.0-18.0); Mean Corpuscular HGB Conc 34.9 g/dl (31.0-36.0); Mean Corpuscular Hemoglobin 34.6 pg (27.0-33.0); Mean Corpuscular Volume 99.1 fL (80.0-98.0); Mean Platelet Volume 8.8 fL (9.4-12.4); Platelet Count 120 X10*3/uL (160-400); Red Blood Count 3.35 X10*6/uL (4.60-5.80); Red Cell Distribution Width 18.2 % (11.0-16.0); White Blood Count 6.1 X10*3/uL (4.8-10.8)
[2024-08-29 08:37] LABS: Ammonia 36 umol/L (13-55)
[2024-08-29 09:01] LABS: Alanine Aminotransferase 56 U/L (0-40); Albumin Level 3.6 g/dL (3.5-5.0); Alkaline Phosphatase 175 U/L (39-117); Anion Gap 14 (12-20); Aspartate Amino Transferase 102 U/L (5-37); Bilirubin Total 7.1 mg/dL (0.0-1.0); Blood Urea Nitrogen 11 mg/dL (9-16); Calcium 9.4 mg/dL (8.4-10.2); Carbon Dioxide 26 mmol/L (22-29); Chloride 105 mmol/L (96-108); Creatinine Clr Calc Pharmacy 128.9; Estimated Glomerular Filt Rate > 60; Glucose Random 79 mg/dL (60-115); Iron 92 mcg/dL (45-160); Percent Iron Saturation 79 % (15-50); Potassium 3.2 mmol/L (3.3-5.1); Sodium 142 mmol/L (135-145); Total Iron Binding Capacity 117 mcg/dL (228-428); Total Protein 6.5 g/dL (6.5-8.0); Unsaturated Iron Binding < 25 ug/dL
[2024-08-29 09:22] LABS: Folate 6.2 ng/mL (> or = 4.0); Vitamin B12 838 pg/mL (200-900)
--- NOTE | 2024-08-29 10:02 | PM.UROCN ---
History of Present Illness Consult details Consult date: 08/29/24 Narrative: CC: Urinary retention 64-year-old male Admit for jaundice. Known alcohol abuse with 10-12 beers per day During admission has had difficulty with urination. Straight cath x2 followed by Rosado catheter placed for 400 cc. Bladder scanning assessment has been complicated by ascites which would indicate more urine and bladder then actuality Urine output is low given fluid intake however creatinine was normal range Recommend Rosado catheter stay for 48 hours followed by voiding trial Alpha-gennaro with finasteride If fails voiding trial would recommend Rosado catheter to stay for one-week Review of Systems Constitutional: Constitutional: Denies chills and Denies fever(s) Cardiovascular: Cardiovascular: Reports no additional cardiovascular complaints and Denies syncope Respiratory: Respiratory: Denies cough Gastrointestinal: Gastrointestinal: Denies abdominal pain and Denies heartburn Genitourinary: Genitourinary: Reports as per HPI and Denies change in libido Neurologic: Denies syncope Psychiatric: Psychiatric: Denies change in libido Endocrine: Endocrine: Denies change in libido [facility] Past Medical History Medical History No known health problems Family History Family History Father HTN (hypertension) Cancer History of heart attack Mother No problems noted. Surgical History Surgical History History of umbilical hernia repair Social History Social History Household Members: Family Household Members Other:: Son Housing: House Do you presently have visiting nurse or other home services: No Alcohol intake: current Alcohol intake frequency: 3 or more drinks per day Patient Tobacco Use Status: Never used Tobacco service: No Current occupational status: retired Meds Allergies Allergy/AdvReac Type Severity Reaction Status Date / Time No Known Allergies Allergy Verified 08/23/24 10:33 [No Known Allergies*] Active Medications: Current Medications Chlordiazepoxide HCl (Chlordiazepoxide Hcl 25 Mg Capsule) 25 mg PO BID [facility] Last Admin: 08/28/24 20:03 Dose: 25 mg Docusate Sodium (Docusate Sodium 100 Mg Capsule) 100 mg PO BID [facility] Last Admin: 08/29/24 07:38 Dose: 100 mg Enoxaparin Sodium (Enoxaparin Sodium 40 Mg/0.4 Ml Syringe) 40 mg SUBCUT Q24H [facility] Last Admin: 08/27/24 11:51 Dose: 40 mg Thiamine HCl 200 mg/ Sodium (Chloride) 102 mls @ 204 mls/hr IV Q8H [facility] Last Infusion: 08/29/24 08:15 Dose: Infused Lactulose (Lactulose 320 Gm/480 Ml Solution) 200 gm RI Q4H [facility] Last Admin: 08/29/24 07:39 Dose: Not Given Lactulose (Lactulose 20 Gm/30 Ml Solution) 30 gm PO QID [facility] Last Admin: 08/29/24 07:38 Dose: 30 gm Multivitamins/Vitamin C (Multivitamin Tablet) 1 tab PO DAILY [facility] Last Admin: 08/29/24 07:38 Dose: 1 tab Omeprazole (Omeprazole 20 Mg Capsule.Dr) 20 mg PO BID@0630,1630 [facility] Last Admin: 08/29/24 06:15 Dose: 20 mg Ondansetron HCl (Ondansetron Hcl 4 Mg/2 Ml Vial) 4 mg IVPUSH Q8H PRN PRN Reason: Nausea and Vomiting Pharmacy Consult (Consult Rx Etoh Phenob Im/Po) 1 each MISCELLANE ONCE PRN; Protocol PRN Reason: Consult order Polyethylene Glycol (Polyethylene Glycol 3350 17 Gm Powd.Pack) 17 gm PO DAILY [facility] Last Admin: 08/28/24 13:04 Dose: 17 gm Prednisolone Sodium Phosphate (Prednisolone Sodium Phosphate 15 Mg/5 Ml Solution) 40 mg PO DAILY [facility] Last Admin: 08/28/24 08:57 Dose: 40 mg Rifaximin (Rifaximin 550 Mg Tablet) 550 mg PO BID [facility] Last Admin: 08/29/24 07:38 Dose: 550 mg Sodium Chloride (0.9 % Sodium Chloride Flush 3 Ml Syringe) 3 ml IVFLUSH QSHIFT [facility] Last Admin: 08/29/24 07:39 Dose: 3 ml Spironolactone (Spironolactone 25 Mg Tablet) 50 mg PO DAILY [facility]; Protocol Last Admin: 08/29/24 07:37 Dose: 50 mg Tamsulosin HCl (Tamsulosin Hcl 0.4 Mg Capsule) 0.4 mg PO BEDTIME [facility] Last Admin: 08/28/24 19:58 Dose: 0.4 mg Home Medications ?Medication ?Instructions ?Recorded ?Confirmed ?Last Taken ?Type No Known Home Meds 08/23/24 08/23/24 Unknown History Physical Exam Vital Signs: Vital Signs: Last Vital Signs Temp 97.2 F 08/29/24 07:32 Pulse 76 08/29/24 07:32 Resp 16 08/29/24 07:32 BP 103/85 08/29/24 07:32 Pulse Ox 97 08/29/24 07:32 O2 Del Method Room Air 08/29/24 07:32 O2 Flow Rate 1 08/24/24 22:00 BMI result Body Mass Index 23.9 Const: General: cooperative, healthy appearing, comfortable and no acute distress Orientation/consciousness: patient oriented x3 HEENT: Face and sinus: Yes normal facial exam Mouth: moist mucous membranes Neck: Neck: Yes normal visual inspection, Yes full ROM and Yes trachea midline Chest: Chest palpation & inspection: normal inspection of the chest Resp: Effort & Inspection: normal respiratory effort, able to speak in complete sentences and no respiratory distress GI: Inspection: Yes normal to inspection Rectal Exam - Male: Yes normal sphincter tone and Yes prostate normal : Male General Exam: Yes normal external exam Penis: normal penis and circumcised Meatus: meatus normal Scrotum: scrotum normal Testes: Testes normal Back/Spine/Pelvis: Cervical Spine: normal cervical lordosis Thoracic/Lumbar Spine: thoracic and lumbar spine normal to inspection Skin: General skin exam: no rashes or lesions noted Neuro: General: patient oriented x3, gait normal, tone normal and moves all extremities Extrem: General: Yes normal to inspection and Yes capillary refill normal Results Labs 08/29/24 08:13 08/29/24 08:13 Labs: Abnormal lab results 08/29/24 Range/Units 08:13 RBC 3.35 L D (4.60-5.80) X10*6/uL Hgb 11.6 L (14.0-18.0) g/dl Hct 33.2 L (42.0-52.0) % MCV 99.1 H D (80.0-98.0) fL MCH 34.6 H (27.0-33.0) pg RDW 18.2 H (11.0-16.0) % Plt Count 120 L (160-400) X10*3/uL MPV 8.8 L (9.4-12.4) fL Potassium 3.2 L (3.3-5.1) mmol/L TIBC 117 L (228-428) mcg/dL % Saturation 79 H (15-50) % Total Bilirubin 7.1 H (0.0-1.0) mg/dL AST 102 H (5-37) U/L ALT 56 H (0-40) U/L Alkaline Phosphatase 175 H (39-117) U/L Short CBC 08/29/24 Range/Units 08:13 WBC 6.1 (4.8-10.8) X10*3/uL Hgb 11.6 L (14.0-18.0) g/dl Hct 33.2 L (42.0-52.0) % Plt Count 120 L (160-400) X10*3/uL BMP 08/29/24 08:13 Sodium 142 Potassium 3.2 L Chloride 105 Carbon Dioxide 26 BUN 11 Creatinine 0.72 Calcium 9.4 D Liver Function 08/29/24 Range/Units 08:13 Total Bilirubin 7.1 H (0.0-1.0) mg/dL AST 102 H (5-37) U/L ALT 56 H (0-40) U/L Alkaline Phosphatase 175 H (39-117) U/L Albumin 3.6 (3.5-5.0) g/dL Urine 08/23/24 Range/Units 17:45 Urine Color Dark Yellow Urine Appearance Cloudy Urine pH 6.0 (5.0-9.0) Ur Specific [place] 1.020 (1.005-1.025) Urine Protein Trace (Neg-Trace) mg/dL Urine Glucose (UA) Negative (Negative) mg/dL All other labs normal. Assessment and Plan (1) Urinary retention: Status: Acute Plan 48 hour voiding trial Alpha-gennaro with finasteride Follow-up outpatient Procedures Date of Service Date of Service: 08/29/24
[2024-08-29 10:16] LABS: Ferritin 2924 ng/mL (20-250)
[2024-08-29] MEDS: chlordiazePOXIDE HCl 25 MG CAPSULE PO (10:20)
[2024-08-29] MEDS: Finasteride 5 MG TABLET PO (10:21)
[2024-08-29] MEDS: prednisoLONE sodium phosphate 15 MG/5 ML SOLUTION 40 MG PO (10:21)
[2024-08-29] MEDS: polyethylene glycoL 3350 17 GM POWD.PACK PO (10:21)
[2024-08-29] MEDS: Lactated Ringers 1,000 ML 100 ML IVCONT (13:23)
[2024-08-29] MEDS: Potassium Chloride/H20 10 MEQ/100 ML PIGGYBACK 100 MEQ IV ×2 (13:36→15:12)
--- NOTE | 2024-08-29 14:17 | PC.NURSE ---
More drowsy today, no , unable to eat breakfast and dinner , BP 87/66 , MD notified, : fluids, Albumin, NGtube inserted by for lactulse and other po med
--- NOTE | 2024-08-29 14:55 | P.PNIM_ITS ---
Subjective Subjective Date of Service: 08/29/24 Interval History: alcohol withdrawal, hepatic encephalopathy Review of Systems easly awake ,but somewhat sleepy had bm mostly mucous no fever Physical Exam 2 Vital Signs: Vital Signs: Last Vital Signs Temp 97.2 F 08/29/24 11:59 Pulse 81 08/29/24 12:45 Resp 18 08/29/24 11:59 BP 94/67 08/29/24 12:45 Pulse Ox 95 08/29/24 11:59 O2 Del Method Room Air 08/29/24 11:59 O2 Flow Rate 1 08/24/24 22:00 BMI result Body Mass Index 23.9 Appearance: easly awake ,somewhat sleepy Eyes: Pupils equal, round and reactive to light.? Sclera icteric/jaundice. cvs: rrr, [id number]. res: clear to auscultation ,no rhonchii or wheezing abd: no rebound or guarding ,nt, bs present. Gu-has kauffman ext pulses present , no cyanosis. neuro: nonfocal. Objective Data Active Medications Ceftriaxone Sodium (Ceftriaxone Sodium 1 Gm Vial) 1 gm IVPUSH Q24H [facility] Docusate Sodium (Docusate Sodium 100 Mg Capsule) 100 mg PO BID [facility] Last Admin: 08/29/24 07:38 Dose: 100 mg Documented By: MAGDALENO Enoxaparin Sodium (Enoxaparin Sodium 40 Mg/0.4 Ml Syringe) 40 mg SUBCUT Q24H [facility] Last Admin: 08/27/24 11:51 Dose: 40 mg Documented By: ELDER Finasteride (Finasteride 5 Mg Tablet) 5 mg PO DAILY [facility] Last Admin: 08/29/24 10:21 Dose: 5 mg Documented By: MAGDALENO Thiamine HCl 200 mg/ Sodium (Chloride) 102 mls @ 204 mls/hr IV Q8H [facility] Last Infusion: 08/29/24 08:15 Dose: Infused Documented By: MAGDALENO Albumin Human (Kedbumin 25 %) 100 mls @ 100 mls/hr IV Q6H [facility] Stop: 08/30/24 08:59 Potassium Chloride (Potassium Chloride/H20) 10 meq in 100 mls @ 100 mls/hr IV Q1H [facility] Stop: 08/29/24 15:59 Last Admin: 08/29/24 13:36 Dose: 100 mls/hr Documented By: MAGDALENO Lactated Ringer's (Lr) 1,000 mls @ 100 mls/hr IVCONT .Q10H [facility] Last Admin: 08/29/24 13:23 Dose: 100 mls/hr Documented By: MAGDALENO Lactulose (Lactulose 20 Gm/30 Ml Solution) 40 gm G-TUBE Q1H [facility] Stop: 08/29/24 18:01 Multivitamins/Vitamin C (Multivitamin Tablet) 1 tab PO DAILY [facility] Last Admin: 08/29/24 07:38 Dose: 1 tab Documented By: MAGDALENO Omeprazole (Omeprazole 20 Mg Capsule.) 20 mg PO BID@0630,1630 [facility] Last Admin: 08/29/24 06:15 Dose: 20 mg Documented By: GREGORY Ondansetron HCl (Ondansetron Hcl 4 Mg/2 Ml Vial) 4 mg IVPUSH Q8H PRN PRN Reason: Nausea and Vomiting Pharmacy Consult (Consult Rx Etoh Phenob Im/Po) 1 each MISCELLANE ONCE PRN; Protocol PRN Reason: Consult order Polyethylene Glycol (Polyethylene Glycol 3350 17 Gm Powd.Pack) 17 gm PO DAILY [facility] Last Admin: 08/29/24 10:21 Dose: 17 gm Documented By: MAGDALENO Prednisolone Sodium Phosphate (Prednisolone Sodium Phosphate 15 Mg/5 Ml Solution) 40 mg PO DAILY [facility] Last Admin: 08/29/24 10:21 Dose: 40 mg Documented By: MAGDALENO Rifaximin (Rifaximin 550 Mg Tablet) 550 mg PO BID [facility] Last Admin: 08/29/24 07:38 Dose: 550 mg Documented By: MAGDALENO Sodium Chloride (0.9 % Sodium Chloride Flush 3 Ml Syringe) [facility] Last Admin: 08/29/24 07:39 Dose: 3 ml Documented By: MAGDALENO Spironolactone (Spironolactone 25 Mg Tablet) 50 mg PO DAILY [facility]; Protocol Last Admin: 08/29/24 07:37 Dose: 50 mg Documented By: MAGDALENO Tamsulosin HCl (Tamsulosin Hcl 0.4 Mg Capsule) 0.4 mg PO BEDTIME [facility] Last Admin: 08/28/24 19:58 Dose: 0.4 mg Documented By: GREGORY Labs 08/29/24 08:13 08/29/24 08:13 Labs: Laboratory Results - last 24 hr 08/29/24 08:13 MCV 99.1 H D MCH 34.6 H MCHC 34.9 RDW 18.2 H Plt Count 120 L MPV 8.8 L Absolute Nucleated RBC 0.000 Nucleated RBC % (auto) 0.0 Anion Gap 14 Estim Creat Clear Calc 128.9 Estimated GFR > 60 Random Glucose 79 Calcium 9.4 D Iron 92 TIBC 117 L % Saturation 79 H Unsat Iron Binding < 25 Ferritin 2924 H Total Bilirubin 7.1 H AST 102 H ALT 56 H Alkaline Phosphatase 175 H Ammonia 36 Total Protein 6.5 Albumin 3.6 Vitamin B12 838 Folate 6.2 Assessment and Plan (1) Acute alcoholic hepatitis: Status: Acute (2) Pancytopenia: Status: Acute Plan 64-year-old gentleman with past medical history of alcohol abuse disorder, history of possible TIA admitted to the hospital in December for the same presents to the ED from his home as he noticed jaundice. Admitted for possible alcoholic hepatitis, hyponatremia, alcohol withdrawal . Hepatic encephalopathy in the setting of alcoholic liver cirrhosis ngt placed ct head-neg mri head added lft's and ammonia levels imrpoving but still juandiced. plan: po intake trendiing down Monitor mental status d/w Gi and ICU:switch lactulose via ngt 40 mg q2hr ,switched rifaximine via g tube ,replete electrolytes ngt xray reviewed with Gi -started with lactulose neurology eval Alcoholic hepatitis:Given underlying significant ascites and evidence of splenomegaly also possibly has cirrhosis Elevated bilirubin and liver enzymes-somewhat improving Continue prednisolone for the management of alcoholic hepatitis, Maddrey's discrimination score 37.4 CT abdomen suggestive of severe hepatic steatosis and large ascites; bedside US did not show any big enough pocket for paracentesis -another us paracenetesis added also d/w Gi-add ceftriaxone for persumed sbp pending paracenetesis added ,also albumin added. Acute hyponatremia: Resolved, possible like to underlying liver disease. Pancytopenia: Possibly secondary to splenomegaly from underlying possible cirrhosis Hemoglobin dropped from 12g on admission to 9 g, no obvious source of bleed Gi eval pending. Alcohol withdrawal: Early signs of alcohol withdrawal in the form of tremors and confusion hold sedating meds - hold chlordizepoxide now . Acute hypokalemia:repleted and resolved. urinary retention : pvr ,striaght cath prn urology eval Prophylaxis: scd, omeprazole. Above is d/w ICu in detail length- recomended to continue current management , they will follow up patient in evening ongoing need for hospitlisation -encephelopathy worsening ,dec po inatke -need mental status monitering ,lactulose , neurologic workup. d/w in detail with patient daughter miss bella -overall prognosis guarded . Quality Stroke Does the patient have a stroke diagnosis?: No VTE Prior VTE?: No VTE Risk Level:: Medical - low VTE Device Contraindication: N/A - Device Ordered VTE Drug Contraindication: N/A - Med Ordered
--- NOTE | 2024-08-29 15:10 | PM.GIPN ---
Subjective Subjective Date of Service: 08/29/24 Interval History: Pt remains somnolent - arousable and responds to questions LFTs improving with TB of 7 today (from 12.5) Ammonia level is normal Spoke to pt's sister (is an ER Nurse at [employer]) who was visiting the patient. She reported pt has been drinking for the past several years with increased intake over the past year after he was laid off from his job. Pt has been only drinking alcohol and not eating much over the past few weeks He has been through detox in the past and resumes drinking. Pt's niece and HCP (lives out of state) will be flying in tomorrow to see him Critical Care Time (minutes): 20 Physical Exam Vital Signs: Vital Signs: Last Vital Signs Temp 97.2 F 08/29/24 11:59 Pulse 81 08/29/24 12:45 Resp 18 08/29/24 11:59 BP 94/67 08/29/24 12:45 Pulse Ox 95 08/29/24 11:59 O2 Del Method Room Air 08/29/24 11:59 O2 Flow Rate 1 08/24/24 22:00 BMI result Body Mass Index 23.9 Appearance: easly awake ,somewhat sleepy Eyes: Pupils equal, round and reactive to light.? Sclera icteric/jaundice. cvs: rrr, [id number]. res: clear to auscultation ,no rhonchii or wheezing abd: no rebound or guarding ,nt, bs present. Gu-has kauffman ext pulses present , no cyanosis. neuro: nonfocal. Objective Data Labs 08/29/24 08:13 08/29/24 08:13 Labs: Laboratory Results - last 24 hr 08/29/24 08:13 WBC 6.1 RBC 3.35 L D Hgb 11.6 L Hct 33.2 L MCV 99.1 H D MCH 34.6 H MCHC 34.9 RDW 18.2 H Plt Count 120 L MPV 8.8 L Absolute Nucleated RBC 0.000 Nucleated RBC % (auto) 0.0 Sodium 142 Potassium 3.2 L Chloride 105 Carbon Dioxide 26 Anion Gap 14 BUN 11 Creatinine 0.72 Estim Creat Clear Calc 128.9 Estimated GFR > 60 Random Glucose 79 Calcium 9.4 D Iron 92 TIBC 117 L % Saturation 79 H Unsat Iron Binding < 25 Ferritin 2924 H Total Bilirubin 7.1 H AST 102 H ALT 56 H Alkaline Phosphatase 175 H Ammonia 36 Total Protein 6.5 Albumin 3.6 Vitamin B12 838 Folate 6.2 Microbiology Microbiology Results: Microbiology 08/23/24 17:45 Urine clean catch Urine Culture - Final Procedures Date of Service Date of Service: 08/29/24 Progress Note: A&P Assessment and plan (1) Acute alcoholic hepatitis: Status: Acute (2) Ascites: Status: Acute (3) Jaundice: Status: Acute Plan 64 YM with known alcohol abuse disorder, history of possible TIA admitted to ICU on 08/23/24 with jaundice, hyponatremia and pancytopenia and diagnosed with acute alcoholic hepatitis. Pt was started on prednisolone for alcoholic hepatitis (Maddrey's discrimination score was 37.4) Pt is somnolent and unable to provide a detailed history 08/23/[address] SCAN SHOWED: Diffuse small and large bowel wall thickening possibly related to surrounding ascites. Infectious and inflammatory etiologies cannot be excluded. Advise clinical correlation. Severe hepatic steatosis and hepatomegaly. Large ascites. Possible sludge in the gallbladder. RECOMMENDATIONS: 1. Head CT scan 2. Pass a Dobhoff tube and give lactulose 40 gram via NG every hour x 4 doses, then decrease to TID and titrate to 3 soft BMs daily and DC lactulose enemas 3. Agree with adding Rifaximin for HE 4. US guided paracentesis to rule out SBP - OK to start empiric antibiotics for SBP 5. Continue prednisolone 40 mg daily for another 3 weeks and taper by 10 mg every week over 4 weeks Time Spent With Patient Time: Total time managing care of this patient today ____ minutes. Quality Stroke Does the patient have a stroke diagnosis?: No VTE Prior VTE?: No VTE Risk Level:: Medical - low VTE Device Contraindication: N/A - Device Ordered VTE Drug Contraindication: N/A - Med Ordered
[2024-08-29] MEDS: Lactulose 20 GM/30 ML SOLUTION 40 GM G-TUBE ×4 (15:29→17:57)
[2024-08-29] MEDS: cefTRIAXone sodium 1 GM VIAL IVPUSH (15:34)
[2024-08-29] MEDS: 0.9 % Sodium Chloride 1,000 ML 80 ML IVCONT (15:37)
[2024-08-29] MEDS: Albumin Human 25 % 100 ML IV ×2 (15:38→20:20)
--- NOTE | 2024-08-29 15:39 | P.CONCC_ITS ---
History of Present Illness Data of Consult Service Date: 08/29/24 Primary Care Provider: Unknown Physician HPI Reason for consult: Altered mental status 64-year-old male with history of alcoholism admitted with worsening jaundice and hyponatremia. Patient initially went into alcohol withdrawals, and eventually transferred to the floor. Currently although his liver function is improving, bilirubin decreasing to 7, ammonia down to 36 patient's mental status is still waxing and waning- so ICU was consulted. Most recent blood pressure 102/74 CT of the brain pending Went talk to the patient he tried to answer my questions but his speech is very incoherent. ictreus looks better, abdomen soft, non tender, lungs clear. Plan: Neurology consult further input regarding altered mental status in the setting of improving liver function decrease lactulose q4h. stop standing IV fluids given his cirrhotic physiology; please do albumin infusions if needed for hypotension. keep him NPO except for meds given high risk for aspiration. PMFSH Past Medical History Medical History No known health problems Family History Family History Father HTN (hypertension) Cancer History of heart attack Mother No problems noted. Surgical History Surgical History History of umbilical hernia repair Social History Social History Household Members: Family Household Members Other:: Son Housing: House Do you presently have visiting nurse or other home services: No Alcohol intake: current Alcohol intake frequency: 3 or more drinks per day Patient Tobacco Use Status: Never used Tobacco service: No Current occupational status: retired Meds Allergies Allergy/AdvReac Type Severity Reaction Status Date / Time No Known Allergies Allergy Verified 08/23/24 10:33 [No Known Allergies*] Active Medications: Current Medications Ceftriaxone Sodium (Ceftriaxone Sodium 1 Gm Vial) 1 gm IVPUSH Q24H [facility] Last Admin: 08/29/24 15:34 Dose: 1 gm Docusate Sodium (Docusate Sodium 100 Mg Capsule) 100 mg PO BID [facility] Last Admin: 08/29/24 07:38 Dose: 100 mg Enoxaparin Sodium (Enoxaparin Sodium 40 Mg/0.4 Ml Syringe) 40 mg SUBCUT Q24H [facility] Last Admin: 08/27/24 11:51 Dose: 40 mg Finasteride (Finasteride 5 Mg Tablet) 5 mg PO DAILY [facility] Last Admin: 08/29/24 10:21 Dose: 5 mg Thiamine HCl 200 mg/ Sodium (Chloride) 102 mls @ 204 mls/hr IV Q8H [facility] Last Infusion: 08/29/24 08:15 Dose: Infused Albumin Human (Kedbumin 25 %) 100 mls @ 100 mls/hr IV Q6H [facility] Stop: 08/30/24 08:59 Last Admin: 08/29/24 15:38 Dose: 100 mls/hr Potassium Chloride (Potassium Chloride/H20) 10 meq in 100 mls @ 100 mls/hr IV Q1H [facility] Stop: 08/29/24 15:59 Last Admin: 08/29/24 15:12 Dose: 100 mls/hr Sodium Chloride (Ns) 1,000 mls @ 80 mls/hr IVCONT .[id number] [facility] Last Admin: 08/29/24 15:37 Dose: 80 mls/hr Lactulose (Lactulose 20 Gm/30 Ml Solution) 40 gm G-TUBE Q1H [facility] Stop: 08/29/24 18:01 Last Admin: 08/29/24 15:29 Dose: 40 gm Multivitamins/Vitamin C (Multivitamin Tablet) 1 tab PO DAILY [facility] Last Admin: 08/29/24 07:38 Dose: 1 tab Omeprazole (Omeprazole 20 Mg Capsule.Dr) 20 mg PO BID@0630,1630 [facility] Last Admin: 08/29/24 06:15 Dose: 20 mg Ondansetron HCl (Ondansetron Hcl 4 Mg/2 Ml Vial) 4 mg IVPUSH Q8H PRN PRN Reason: Nausea and Vomiting Pharmacy Consult (Consult Rx Etoh Phenob Im/Po) 1 each MISCELLANE ONCE PRN; Protocol PRN Reason: Consult order Polyethylene Glycol (Polyethylene Glycol 3350 17 Gm Powd.Pack) 17 gm PO DAILY [facility] Last Admin: 08/29/24 10:21 Dose: 17 gm Prednisolone Sodium Phosphate (Prednisolone Sodium Phosphate 15 Mg/5 Ml Solution) 40 mg PO DAILY [facility] Last Admin: 08/29/24 10:21 Dose: 40 mg Rifaximin (Rifaximin 550 Mg Tablet) 550 mg PO BID [facility] Last Admin: 08/29/24 07:38 Dose: 550 mg Sodium Chloride (0.9 % Sodium Chloride Flush 3 Ml Syringe) 3 ml IVFLUSH QSHIFT [facility] Last Admin: 08/29/24 15:39 Dose: 3 ml Spironolactone (Spironolactone 25 Mg Tablet) 50 mg PO DAILY [facility]; Protocol Last Admin: 08/29/24 07:37 Dose: 50 mg Tamsulosin HCl (Tamsulosin Hcl 0.4 Mg Capsule) 0.4 mg PO BEDTIME [facility] Last Admin: 08/28/24 19:58 Dose: 0.4 mg Home Medications ?Medication ?Instructions ?Recorded ?Confirmed ?Last Taken ?Type No Known Home Meds 08/23/24 08/23/24 Unknown History Physical Exam 2 Vital Signs: Vital Signs: Last Vital Signs Temp 97.2 F 08/29/24 11:59 Pulse 81 08/29/24 12:45 Resp 18 08/29/24 11:59 BP 94/67 08/29/24 12:45 Pulse Ox 95 08/29/24 11:59 O2 Del Method Room Air 08/29/24 11:59 O2 Flow Rate 1 08/24/24 22:00 BMI result Body Mass Index 23.9 Results Labs 08/29/24 08:13 08/29/24 08:13 Labs: Short CBC 08/29/24 Range/Units 08:13 WBC 6.1 (4.8-10.8) X10*3/uL Hgb 11.6 L (14.0-18.0) g/dl Hct 33.2 L (42.0-52.0) % Plt Count 120 L (160-400) X10*3/uL BMP 08/29/24 08:13 Sodium 142 Potassium 3.2 L Chloride 105 Carbon Dioxide 26 BUN 11 Creatinine 0.72 Calcium 9.4 D Liver Function 08/29/24 Range/Units 08:13 Total Bilirubin 7.1 H (0.0-1.0) mg/dL AST 102 H (5-37) U/L ALT 56 H (0-40) U/L Alkaline Phosphatase 175 H (39-117) U/L Albumin 3.6 (3.5-5.0) g/dL Microbiology Microbiology Results: Microbiology 08/23/24 17:45 Urine clean catch Urine Culture - Final
--- NOTE | 2024-08-29 18:05 | PC.NURSE ---
rectal tube inserted for liquid stool , incontinent large amount and there is a liquid dark yellow stool in the rectal tube
[2024-08-29 18:23] LABS: VBG Base Excess 3.6 mmol/L; VBG HCO3 24 mmol/L (22-26); VBG pCO2 27 mmHg; VBG pH 7.56 (7.32-7.43); VBG pO2 80 mmHg
[2024-08-29 18:24] LABS: Venous Blood Gas Refer to POC result
[2024-08-29] MEDS: Dextrose 5 % and 0.9 % NaCl 1,000 ML 50 ML IVCONT (18:38)
[2024-08-29 18:49] LABS: Lactate Dehydrogenase 291 U/L (118-273); Total Protein 6.9 g/dL (6.5-8.0)
[2024-08-29 20:11] LABS: Glucose, Whole Blood 181 mg/dL (60-115)
[2024-08-29 20:36] LABS: Basophils Percent Auto 0.2 % (0-2); Eosinophils Percent Auto 0.4 % (0-4); Hematocrit 34.8 % (42.0-52.0); Hemoglobin 12.2 g/dl (14.0-18.0); Imm Gran Abs Auto 0.04 X10*3/uL (0.00-0.03); Imm Gran Pct Auto 0.7 % (0.0-0.4); Lymphocytes Absolute Auto 0.3 X10*3/uL (1.2-4.9); Lymphocytes Percent Auto 4.6 % (20-40); MANUAL DIFF FLAG NO; Mean Corpuscular HGB Conc 35.1 g/dl (31.0-36.0); Mean Corpuscular Hemoglobin 34.6 pg (27.0-33.0); Mean Corpuscular Volume 98.6 fL (80.0-98.0); Monocytes Absolute Auto 0.5 X10*3/uL (0.1-1.2); Monocytes Percent Auto 9.4 % (2-11); Neutrophils Absolute Auto 4.8 x10*3/uL (2.0-8.3); Neutrophils Percent Auto 84.7 % (45-73); Platelet Count 115 X10*3/uL (160-400); Red Blood Count 3.53 X10*6/uL (4.60-5.80); Red Cell Distribution Width 18.5 % (11.0-16.0); White Blood Count 5.7 X10*3/uL (4.8-10.8)
[2024-08-29 20:41] LABS: INTERNATIONAL NORM RATIO 1.6 (0.9-1.1); Prothrombin Time 18.9 SEC (10.9-12.4)
[2024-08-29 20:44] LABS: Ammonia 35 umol/L (13-55)
[2024-08-29 20:49] LABS: Venous Blood Gas Refer to POC result
[2024-08-29 20:49] LABS: VBG Base Excess 2.9 mmol/L; VBG HCO3 23 mmol/L (22-26); VBG pCO2 24 mmHg; VBG pH 7.59 (7.32-7.43); VBG pO2 91 mmHg
[2024-08-29 20:54] LABS: Alanine Aminotransferase 56 U/L (0-40); Albumin Level 4.2 g/dL (3.5-5.0); Alkaline Phosphatase 153 U/L (39-117); Anion Gap 17 (12-20); Aspartate Amino Transferase 104 U/L (5-37); Bilirubin Total 8.5 mg/dL (0.0-1.0); Blood Urea Nitrogen 13 mg/dL (9-16); Carbon Dioxide 23 mmol/L (22-29); Chloride 106 mmol/L (96-108); Creatinine Clr Calc Pharmacy 94.7; Estimated Glomerular Filt Rate > 60; Glucose Random 205 mg/dL (60-115); Potassium 3.4 mmol/L (3.3-5.1); Sodium 143 mmol/L (135-145); Total Protein 7.2 g/dL (6.5-8.0)
[2024-08-29] MEDS: Norepinephrine Bitartrate/D5W 8 MG/250 ML PLAST..BAG 8.36 MG IVCONT (23:15)
--- NOTE | 2024-08-29 23:40 | PM.CCN ---
Critical Care Event Note Summary Date of Service: 08/29/24 Code activated: No Narrative: This case had a high probability of a clinically significant, sudden, or life threatening deterioration of this patient's condition which required my full and direct attention, intervention and personal management. Critical Care Time (minutes): 90 Comment: Patient will be seen earlier by Dr. Winn At 20:30 I was contacted by Dr. Flores to see the patient for she was concerned that the patient had a GCS of 9 and was not arousable. I did go see the patient, evaluated him, he appeared to be breathing on his own, responded to verbal stimuli upon calling his name, in the presence of the nurse, the patient said that he had no complaints and verbalize these, in addition he gave us thumbs up several times upon request. The patient however seemed to be breathing on his own but had coarse lung sounds in the upper lung schmitt, no accessory muscle usage, no hypoxia, no tachypnea. The advised initially was to send the patient for CT scan of the chest 4 I suspect that there is underlying pneumonia that is only showing as atelectasis on x-ray given that the patient is extra vascularly wet and centrally dry. At 22:15, rapid response was called on the same patient, he had gone to CT scan and had this study successfully. While in the bed, the patient started vomiting but unfortunately the patient was not able to roll over to his side and the rapid response was called. Upon arriving to the room, the patient had aspirated massive amounts of his own vomitus, was now in respiratory distress, hypoxic with O2 sat in the 70s and heart rate in the 130s. At this point the decision to intubate for airway protection was made and I proceeded to pre oxygenate the patient. Suction was applied and aspirated copious bile looking material. He was ventilated with Ambu bag and pre oxygenation was achieved obtaining an O2 sat of 93%. I then proceeded to intubate the patient emergently, it was a somewhat difficult intubation but successful and without any complications. Please see the procedure note for details Once the patient was stable and blood pressure and other vital signs were okay, the order request was made for the patient to be transferred to the ICU. After all the above and placing a central line, I did speak to the patient's son who is aware of all the events and got further consent for future procedures including radial a line, paracentesis, blood transfusion. Patient's nurse Nataly was a witness for this discussion. Critical care time used for critical evaluation of this patient, diagnosis, treatment and coordination of care, review her records and documentation TOTAL CRITICAL CARE TIME 90 MIN . discussion and coordination with consultants, completely separate from any procedures performed. Patient's care was discussed in detail with Dr. Winn. He is aware of all the above as well as the plan of care for this patient.
[2024-08-30] VITALS (73 sets, daily range): BP systolic 79–130; BP diastolic 51–83; PULSE 94–131; RESP 11–30; TEMP 35–38.7; O2SAT 90–98; BMI 23.9
[2024-08-30] MEDS: propofoL 1,000 MG/100 ML VIAL 16.06 MG IVCONT ×2 (00:18→19:45)
--- NOTE | 2024-08-30 00:29 | PM.EVENT ---
Event Note Date of Service: 08/29/24 Event Note: 8:01 PM - Contacted by RN and asking to evaluate Mr. Ann due to worsening mental deterioration, lethargic, GCS = 9. He is only mumbling in response to void and light pain. POC checked 181. 8:10 PM - On my evaluation, patient is obtunded, unable to open eyes to painful stimuli, not following simple commands. Pupils are equally and mildly reactive to light. NG tube in place. VS stable except for tachycardia, HR 115 bpm. Jaundice. Cardiopulmonary exam is remarkable for tachycardia, normal rhythm; some tachypnea. Abdomen - very distended, (+) fluid wave. I placed indwelling urinary catheter couple of days ago and the patient was somewhat alert and answering simple questions. Also, his abdomen looks significantly more distended. Rectal tube noted to be in place with bag almost half way full of pale cream color (nonbloody). 8:27 PM - I contacted ICU team as the patient has developed mental status deterioration. 8:50 PM - ICU team recommended no feeding tube/NPO/nothing via NG tube, to obtain chest and abdomen/pelvis CT scans to assess for PNA and acute intraabdominal pathology, respectively; as well as starting IV antibiotic tx with Zosyn for possible aspiration. Patient considered no ICU candidate at this moment. 10:08 PM - Patient returned from CT scan suite and contacted because patient vomited and aspirated. Suction was performed. Patient immediately became tachypneic and tachycardic (sustaining 130s). His O2 sats dropped to 67%. Lungs auscultation - prominent bilateral rhonchi. 10:12 PM - Rapid response activated. ICU provider and other staff immediately performed rapid sequence intubation. 10:35 PM - Patient was transferred to ICU for further management and evaluation. Time Spent With Patient Time: Total time managing care of this patient today ____ minutes.
--- NOTE | 2024-08-30 00:39 | W.PM.CCHP ---
Procedures Date of Service Date of Service: 08/30/24 Arterial Line Arterial Line Comments: And obtained from the patient's son Sam Ann over the phone, he is aware of risk of bleeding, infection vascular issues. Dillon test was done and normal bilaterally upper extremities for the radial and ulnar arteries. Total of 3 attempts to on the right side unsuccessful as I was unable to thread the wire. On the left side it was attempted twice and on the 2nd puncture, I was able to obtain the line; pressure monitoring set up was applied correlates well with cuff blood pressure. Good wave. No complications. Consent: Elective - informed consent obtained Sterile Technique Used: Yes Time out performed: Yes Size (Gauge): 20 Technique used: direct puncture technique Post-Procedure: line sutured into place and dry sterile dressing placed Patient tolerated procedure: well and no complications Complications: none Site: left
--- NOTE | 2024-08-30 00:42 | W.PM.CCHP ---
Procedures Date of Service Date of Service: 08/30/24 Arterial Line Size (Gauge): 20 Intubation Intubation Comments: Emergently on the floor respiratory distress, massive aspiration Consent for Procedure: Emergent-no informed consent obtained Time out performed: No Sedative: etomidate Mg given: 30 Paralytic: rocuronium Mg given: 50 Laryngoscope: Tamayo ET tube size: 7.5 ET tube uncuffed: Yes Tube secured depth (cm): 26 Tube secured location: lips Tube placement confirmation: visualized tube passing through cords, equal breath sounds bilaterally, no breath sounds over epigastrium and confirmation by capnometry Patient tolerated procedure: well, no complications and other (Massive amounts of bile like material aspirated from the oral cavity prior and during intubation.) Intubation complications: none, difficult intubation and other (Post intubation x-ray reviewed by me shows the tip of the tube 4 cm above the gerri.)
--- NOTE | 2024-08-30 00:48 | W.PM.CCHP ---
Procedures Date of Service Date of Service: 08/30/24 Arterial Line Size (Gauge): 20 Central Line Placement Right IJ: Consent for Procedure: Emergent-no informed consent obtained Time out performed: Yes Sterile Technique Used: Yes Patient placed on monitor/pulse ox: Yes MD prep: mask, gown and gloves Central line prep: Chlorhexidine scrub (x2) Ultrasound used for placement: Yes Central line lumen inserted: triple (16 cm) Post procedure: sutured in place, good blood return, all ports aspirated, flushed, capped and sterile dressing applied Post procedure x-ray: tip of catheter in good position and no pneumothorax seen Patient tolerated procedure: well Complications: none
--- NOTE | 2024-08-30 00:50 | W.PM.CCHP ---
Procedures Date of Service Date of Service: 08/30/24 Arterial Line Size (Gauge): 20 Feeding Tube Replacement Type of tube: other (Jovani gastric Tube) Insertion site prior to procedure: excoriated and GI fluid leaking Tube used for reinsertion: other (OG) Welsh Tube Size (F): 16 Verification of placement: auscultation and other (CXR) Tube secured by: tape/dressing Patient tolerated procedure: well and no complications Additional comments: to LIS for bile drainage
--- NOTE | 2024-08-30 01:02 | PC.NURSE ---
Covering Dr. Mark Gama was notified of patient lethargy, difficult to arousing/mentation concerns with patient only mumbling incoherently to touch and painful stimuli, no grasping fingers or following basic commands when asked. GCS 9 per neuro assessment (see neuro assessment task in worklist and shift assessment for full details). POC checked was WNL 181. Breathing was even and unlabored without distress, patient tachycardic 110's with all other VSS at the time. Provider to bedside at ~20:10 per appeals writer request. Abdominal assessment also concerning for increased size/distention compared to this appeals writer's previous assessment of patient on 08/27. Patient maintained NPO for mentation with soft/keofeed NGT in place and clamped to left nare on assuming care. MD orders for STAT lab orders for CBC, CMP, PT/INR, VBG, ammonia. MD advised plan to reach out again to ICU. At 20:45, lab tiger-texted appeals writer and provider with critical VBG pH of 7.585 at 20:48. No new orders advised. ICU provider presented to the bedside, mentation assessed, patient slightly more arousable at the time. Recommendations made for CT chest, abdomen/pelvis and order placed. Patient transported at 21:[address] scan with appeals writer and transport. During transfer from the bed for CT the patient's rectal tube noted to have new small leak as evidenced by a small amount stool visible on patient's sheet. On return to s4 from CT scan, appeals writer and LOCOMOTIVE CRANE ENGINEER rolled patient onto right side to obtain rectal temp to rule of fever in setting of increasing tachycardia since assuming care (T 99.8; HR increased from 110's to 120's then 130's with MD aware), perform incontinence care and linen change when patient began to vomit moderate amount of yellow emesis. Pt was side lying at the time and immediately po suctioned with yankauer with +effect. Rectal tube noted to have 275ml new output at the same time. Patient became tachypneic at that time RR 30's. HOB was elevated and vitals obtained notable for SPO2 of 64% on RA. Rapid response was called at 22:16. Dr. Mark Gama (Hospitalist) and Vincent YEE (ICU) as well as the nursing snow removing supervisor immediately to bedside. The patient was bagged with an AMBU until intubated by JOSELITO Betts at 22:24 with a 7.5mm tube secured at 26cm at the lip following 30 of etomidate given at 22:22, 50 of rocuronium given at 22:23 for RSI. Patient transferred by nursing snow removing supervisor and respiratory therapist to ICU. Handoff report called to CONTACT WORKER that was assuming care. Please see vital signs flowsheet and rapid response assessment for further details.
[2024-08-30 01:08] LABS: ABG Base Excess -3.3 mmol/L; ABG HCO3 18 mmol/L (22-26); ABG pCO2 24 mmHg (32-45); ABG pH 7.48 (7.35-7.45); ABG pO2 79 mmHg (83-108); Carbon Monoxide POC 1.9 %; Ionized Calcium - POC 1.15 mmol/L (1.12-1.32)
[2024-08-30 01:14] LABS: ABG Refer to POC result
[2024-08-30] MEDS: Chlorhexidine Gluc Oral Rinse 15 ML MOUTHWASH BUCCAL ×4 (01:54→19:45)
[2024-08-30] MEDS: Piperacillin Sodium/Tazobactam 3.375 GM in 0.9 % Sodium Chloride 50 ML IV ×5 (01:55→20:54)
[2024-08-30] MEDS: Vasopressin 20 UNIT/100 ML INFUS..BTL 12 UNIT IVCONT ×4 (02:00→22:46)
[2024-08-30 03:26] LABS: Glucose, Whole Blood 122 mg/dL (60-115)
[2024-08-30] MEDS: Lactated Ringers 500 ML 999 ML IV (03:51)
[2024-08-30] MEDS: Albumin Human 25 % 100 ML IV (03:56)
[2024-08-30 04:02] LABS: HBsAGNum1 0.41 S/CO (0.00-0.99); Hepatitis B Surface Antigen Negative (Negative); ~Hepatitis B Surface Antibody NONREACTIVE (Nonreactive)
[2024-08-30] MEDS: fentaNYL citrate/NS 1,000 MCG/100 ML PLAST..BAG 2.5 MCG IVCONT (04:03)
[2024-08-30] MEDS: Norepinephrine Bitartrate/D5W 8 MG/250 ML PLAST..BAG 100.35 MG IVCONT (04:04)
[2024-08-30 04:28] LABS: Hemoglobin 11.7 g/dl (14.0-18.0); Mean Corpuscular HGB Conc 34.4 g/dl (31.0-36.0); Mean Corpuscular Hemoglobin 34.9 pg (27.0-33.0); Mean Corpuscular Volume 101.5 fL (80.0-98.0); Mean Platelet Volume 10.1 fL (9.4-12.4); NRBC Pct Auto 0.5 /100WBC (0.0-0.2); Platelet Count 140 X10*3/uL (160-400); Red Blood Count 3.35 X10*6/uL (4.60-5.80); Red Cell Distribution Width 19.1 % (11.0-16.0); White Blood Count 7.5 X10*3/uL (4.8-10.8)
[2024-08-30 04:32] LABS: VBG Base Excess -3.8 mmol/L; VBG HCO3 20 mmol/L (22-26); VBG pCO2 32 mmHg; VBG pO2 57 mmHg
[2024-08-30 04:33] LABS: Venous Blood Gas Refer to POC result
[2024-08-30] MEDS: Metoprolol Tartrate 5 MG/5 ML VIAL 2.5 MG IVPUSH (04:39)
[2024-08-30 04:41] LABS: Anion Gap 22 (12-20); Blood Urea Nitrogen 17 mg/dL (9-16); Calcium 9.1 mg/dL (8.4-10.2); Carbon Dioxide 18 mmol/L (22-29); Chloride 107 mmol/L (96-108); Creatinine Clr Calc Pharmacy 56.2; Estimated Glomerular Filt Rate 42; Glucose Random 140 mg/dL (60-115); Magnesium 1.6 mg/dL (1.6-2.6); Phosphorus 2.5 mg/dL (2.7-4.5); Potassium 3.1 mmol/L (3.3-5.1); Sodium 144 mmol/L (135-145)
[2024-08-30] MEDS: propofoL 1,000 MG/100 ML VIAL 10.7 MG IVCONT ×2 (04:43→13:03)
[2024-08-30] MEDS: Lactated Ringers 1,000 ML 100 ML IVCONT (05:05)
[2024-08-30] MEDS: Potassium Phosphate/NS 15 MMOL/250 ML PLAST..BAG 62.5 MMOL IV (05:08)
[2024-08-30] MEDS: Pantoprazole Sodium 40 MG/10 ML VIAL IVPUSH (05:13)
--- NOTE | 2024-08-30 05:33 | PM.CCN ---
Critical Care Event Note Summary Date of Service: 08/30/24 Code activated: No Narrative: This case had a high probability of a clinically significant, sudden, or life threatening deterioration of this patient's condition which required my full and direct attention, intervention and personal management. Critical Care Time (minutes): 20 Comment: 0400 Awaiting reading of Chest Abd and Pelvis CT. Discussed with health record technician Requested CT readings as they are not back, pt has significant large bowel dilatation as noted on previous images. Will await Radiologist reading? SBO? Mesenteric ischemia ? Large Bowel Obstruction and less likely toxic megacolon. No free air noted. 0520 am I received a phone call from [facility] Radiologist Dr Jacobson regarding the patient's preliminary reading of the CT chest abdomen and pelvis.? Given the noted dilated large bowel, questions the possibility of large bowel ischemia, gas within the colon, portal veins.? He states sometimes this is seen in large bowel obstructions, no free air noted. Full report to follow. At the same time, a consult has been placed to general surgeon Dr. Kilpatrick. 0530 the case in the above-mentioned findings were discussed with Dr. Kilpatrick.? He will come in to see the patient. [place] [id number] CT Scan Report Signed Patient: Denny Ann MR#: [id number] : 1960 Acct:[id number] Age/Sex: 64 / M ADM Date: 08/23/24 Loc: .ICU 254-[address]: Minh Hilario MD Ordering Physician: Mel Harman MD Date of Service: 08/29/24 Procedure(s): CT abdomen pelvis wo IV con Accession Number(s): [id number] cc: Mel Harman MD; Physician,Unknown ~ EXAMINATION: CT ABDOMEN PELVIS WITHOUT IV CONTRAST, CT CHEST WITHOUT IV CONTRAST CLINICAL INFORMATION: Worsening abdominal distention. Obtunded on oxygen. Suspect aspiration pneumonitis. COMPARISON: Chest radiograph 08/23/2024. CT head 08/29/2024. Abdominal ultrasound 08/23/2024. CT abdomen and pelvis 08/23/2024. TECHNIQUE: Unenhanced CT of the chest, abdomen and pelvis. Intravenous Contrast: None This CT examination was performed using dose optimization techniques as appropriate, variously including the following: *Automated exposure control *Adjustment of mA and/or kV according to patient size (this includes techniques or standardized protocols for targeted exams where dose is matched to indication/reason for exam; i.e. extremities or head) *Use of iterative reconstruction technique DLP: 252 mGy-cm chest DLP: 919 mGy-cm abd/pelvis FINDINGS: Chest: Mild bibasilar posterior dependent compressive atelectasis of the lungs is identified. No pulmonary consolidation noted. Mild retained secretions are noted within the distal thoracic trachea and within the right mainstem bronchus. Moderate coronary artery calcific atherosclerosis is noted primarily within the left anterior descending coronary artery. Normal heart size. No pericardial thickening or pericardial fluid collections. No thoracic wall inflammatory changes. Note, images of the chest are suboptimal secondary to motion artifact. No suspicious skeletal lesions of the chest identified. Partial visualization is made of an enteric tube coursing within the esophagus. CT abdomen and pelvis: Liver: The liver is enlarged measuring 24 cm in transaxial dimension. No focal parenchymal lesions of the liver noted. No pneumobilia or portal venous gas identified. Gallbladder and biliary system: Linear hyperdensity is present within the lumen of the gallbladder may represent vicarious excretion of previously administered injuring his contrast agent. No radiodense cholelithiasis definitively visualized. No biliary duct dilatation noted. Pancreas: Normal. Spleen: Normal. Kidneys: Normal. Urinary bladder: Rosado catheter terminates within the urinary bladder. Punctate nondependent foci of gas are present in the urinary bladder. Gastrointestinal system: Rectal tube is noted. Diffuse dilatation of the colon is present to a diameter of up to 7 cm. Gas-fluid levels are present within the colon and findings suspicious for pneumatosis intestinalis of the colon are present as manifest by gas visualized to best advantage in the areas of adjacent fluid within the colon suggestive of gas within the wall of the colon. Pneumatosis is visualized adjacent to areas of gas containing intestinal segments 2. Findings are visualized to best advantage with appropriate windowing (for example series 3 image 64 within the ascending colon). Multifocal tubular foci of gas are noted which appear to track within the colonic venous system and within the transverse mesocolon. Additionally gas is noted within the left common femoral vein and within a subcutaneous vessel which appears to meet again with the left inferior epigastric vein. A mild-moderate quantity of scattered free intraperitoneal fluid is present (7 Hounsfield units). The quantity of free intraperitoneal fluid is similar findings present 08/23/2024. The terminal ileum is normal in appearance (series 3 image 69). Small bowel is normal in caliber. No small bowel pneumatosis intestinalis identified. Normal appearance of the stomach. Enteric tube terminates within the second portion the duodenum. Close scrutiny of the abdomen and pelvis demonstrates no definitive free intraperitoneal gas. Scattered ectopic foci of gas is noted above appear to track within the vessels and no definitive free intraperitoneal gas noted. No large bowel mural thickening noted. Abdominal wall: No abdominal wall hernias noted. Genitourinary system: Normal appearance of the prostate and seminal vesicles. Lymphovascular structures: Scattered calcific atherosclerosis. Normal abdominal aortic caliber. No abdominal or pelvic lymphadenopathy. Gas within multiple venous structures as detailed above. Osseous structures: No suspicious skeletal abnormalities noted. Marked L4-L5 intervertebral disc space narrowing and probable vacuum phenomenon associated with a partially visualized disc extrusion with caudal extension at the level of L4-L5. CT/CT abdomen pelvis wo IV con Impression: Unenhanced CT of the chest, abdomen and pelvis: *Diffuse abnormal dilatation of the colon to a diameter of 7 cm associated with pneumatosis coli and intravenous gas within the colonic venous system. Multiple foci of gas are noted within the colonic veins of the transverse mesocolon. Additionally, intravenous gas is noted within the left common femoral vein and a cutaneous branch of the left inferior epigastric vein. These findings may indicate colonic ischemia in the setting of toxic megacolon. Pneumatosis coli and colonic venous gas are suspicious for ischemia but may also be seen in association with nonischemic colonic dilatation and infectious/inflammatory conditions of the colon. No free intraperitoneal gas noted. A mild-moderate quantity of low density free intraperitoneal fluid is present and similar findings present on the comparison CT of 08/23/2024. A rectal tube terminates in the rectosigmoid region. *Mild bibasilar compressive atelectasis of the lungs. No evidence of aspiration pneumonia/pneumonitis. *Focal calcific atherosclerosis of the left anterior descending coronary artery. *Hepatomegaly. This result with particular regards to findings suspicious for possible colonic ischemia was discussed with Lazaro YEE by telephone at 08/30/2024 5:13AM EST and it was ascertained that the content and urgency of the report was understood at the time of direct communication. Mr. Betts conveyed that surgery would be consulted regarding possible bowel ischemia. Electronically signed by: Kenrick Felton MD 08/30/2024 05:25 AM [facility] [place] Dictated By: Kenrick Felton MD Signed By: <Electronically signed by Kenrick Felton MD in OV> 08/30/24 0525 DD/ 42 TD/TT: 08/29/242200 Industrial Order Clerk: EF
[2024-08-30 05:46] LABS: Lactic Acid 6.9 mmol/L (0.5-2.0)
[2024-08-30] MEDS: Norepinephrine Bitartrate/D5W 8 MG/250 ML PLAST..BAG 117.08 MG IVCONT (05:51)
[2024-08-30] MEDS: Magnesium Sulfate/H2O 2 GM/50 ML PIGGYBACK IV (06:13)
[2024-08-30 06:23] LABS: Albumin Level 3.8 g/dL (3.5-5.0)
--- NOTE | 2024-08-30 07:13 | PC.NURSE ---
Pt transferred to ICU s/p FIELD COUNSEL with this RN at approx 2245, see FIELD COUNSEL assessment. OGT placed upon arrival and connected to LIS with minimal yellow/bile output. Levophed gtt and vasopressin gtt ordered and titrated per MAR to maintain MAP > 65. TLC placed to R IJ by JOSELITO Betts. All lines/tube placements confirmed by pCXR. Propofol and fentanyl gtt started per MAR for sedation- pt asynchronous with vent, hypoxic, increased WOB with Ve approx 15L/min. A-line place to L radial by PA with appropriate waveform. ST on tele. HR up to 130s with PVCs and bursts of PAT. Given lopressor 2.5 mg IVP x1 with good effect. 14 fr kauffman catheter in place upon arrival to ICU, minimally draining clear, dark darrin urine with sediment. Pt appeared to have stopped making urine, bladder scan done for 311 mL. Attempted to irrigate catheter per PA but unable to get return of fluid. Catheter removed per PA and attempted to place 16 fr kauffman. When inserted, approx 100 mL of ioana red blood drained with clots. Kauffman removed per PA and urology consult placed for ?CBI. Abd large, firm, distended. FMS in place draining large amount of liquid leonard output. PA aware of all critical labs and imaging, consult placed to general surgery. Multiple skin integrity concerns- skin tears to B/L forearms, wrapped with xeroform and gauze roll, diffuse scattered bruising/scabs, DTI to R heel, foam dressings applied to all bony prominences. Family called and updated on pt status/plan of care by PA. Bed locked in lowest possible position, bed alarm on. Repositioned in bed q2hrs. See EMR for further details.
[2024-08-30] MEDS: Albumin Human 25 % 100 ML 133.33 ML IV ×2 (07:14→08:33)
[2024-08-30] MEDS: 0.9 % Sodium Chloride Flush 3 ML SYRINGE IVFLUSH ×3 (07:16→23:53)
[2024-08-30 07:31] LABS: Reflex Lactate? Lactic Acid Added
--- NOTE | 2024-08-30 07:34 | PM.CCPN ---
Subjective Subjective Date of Service: 08/30/24 Critical Care Time (minutes): 60 Physical Exam Vital Signs: Vital Signs: Last Vital Signs Temp 97.2 F 08/30/24 03:00 Pulse 104 H 08/30/24 06:00 Resp 16 08/30/24 06:00 BP 98/66 08/30/24 06:00 Pulse Ox 95 08/30/24 06:00 O2 Del Method Mechanical Ventil ation 08/30/24 06:00 O2 Flow Rate 1 08/24/24 22:00 FiO2 50 08/30/24 06:00 BMI result Body Mass Index 23.9 Const: Other: intubated, sedated; some appreciable jaundice General: no acute distress and well developed HEENT: Head: Yes normal to inspection, Yes normocephalic and Yes atraumatic Eyes: General: appearance normal, both eyes and all related structures Neck: Neck: Yes normal visual inspection, Yes full ROM, Yes no meningeal signs, Yes trachea midline and Yes supple Chest: Chest palpation & inspection: normal inspection of the chest Resp: Other: no appreciable rales, rhonchi, wheezing Effort & Inspection: normal respiratory effort Cardio: Rate: regular rate Rhythm: regular rhythm GI: Other: appreciable distended abdomen, though soft, compressible Inspection: Yes normal to inspection, No Abdominal wall edema and Yes distended Palpation (GI): Soft to palpation, not firm, nontender, no guarding and not rigid Skin: Other: scattered abrasions and excoriations General skin exam: no rashes or lesions noted Neuro: General: tone normal and no meningeal signs Extrem: General: Yes normal to inspection, Yes full ROM, Yes capillary refill normal and Yes no clubbing, cyanosis or edema Psych: Other: unable to assess Objective Data Labs 08/30/24 04:14 08/30/24 04:14 Labs: Laboratory Results - last 24 hr 08/29/24 08/29/24 08/29/24 08:13 18:14 18:19 WBC 6.1 RBC 3.35 L D Hgb 11.6 L Hct 33.2 L MCV 99.1 H D MCH 34.6 H MCHC 34.9 RDW 18.2 H Plt Count 120 L MPV 8.8 L Immature Gran % (Auto) Neut % (Auto) Lymph % (Auto) [place] % (Auto) Eos % (Auto) Baso % (Auto) Lymph # (Auto) [place] # (Auto) Eos # (Auto) Baso # (Auto) Abs Immat Gran (auto) Absolute Neuts (auto) Absolute Nucleated RBC 0.000 Nucleated RBC % (auto) 0.0 PT INR O2 Saturation ABG pH at Pt Temp ABG pCO2 at Pt Temp ABG pO2 at Pt Temp ABG HCO3 ABG Base Excess (Actual) VBG pH 7.56 H VBG pCO2 27 VBG pO2 80 VBG HCO3 24 VBG O2 Saturation 97.0 VBG Base Excess 3.6 Carboxyhemoglobin % Sodium 142 Potassium 3.2 L Chloride 105 Carbon Dioxide 26 Anion Gap 14 BUN 11 Creatinine 0.72 Estim Creat Clear Calc 128.9 Estimated GFR > 60 POC Glucose Random Glucose 79 Lactic Acid Calcium 9.4 D POC WB Ioniz Calcium Phosphorus Magnesium Iron 92 TIBC 117 L % Saturation 79 H Unsat Iron Binding < 25 Ferritin 2924 H Total Bilirubin 7.1 H AST 102 H ALT 56 H Alkaline Phosphatase 175 H Ammonia 36 Lactate Dehydrogenase 291 H Total Protein 6.5 6.9 Albumin 3.6 Vitamin B12 838 Folate 6.2 Hep Bs Antigen Negative Hep Bs Antibody NONREACTIVE Blood Type Antibody Screen 08/29/24 08/29/24 08/29/24 20:00 20:30 20:31 WBC 5.7 RBC 3.53 L Hgb 12.2 L Hct 34.8 L MCV 98.6 H MCH 34.6 H MCHC 35.1 RDW 18.5 H Plt Count 115 L MPV 9.0 L Immature Gran % (Auto) 0.7 H Neut % (Auto) 84.7 H Lymph % (Auto) 4.6 L [place] % (Auto) 9.4 Eos % (Auto) 0.4 Baso % (Auto) 0.2 Lymph # (Auto) 0.3 L [place] # (Auto) 0.5 Eos # (Auto) 0.0 Baso # (Auto) 0.0 Abs Immat Gran (auto) 0.04 H Absolute Neuts (auto) 4.8 Absolute Nucleated RBC 0.000 Nucleated RBC % (auto) 0.0 PT 18.9 H INR 1.6 H O2 Saturation ABG pH at Pt Temp ABG pCO2 at Pt Temp ABG pO2 at Pt Temp ABG HCO3 ABG Base Excess (Actual) VBG pH VBG pCO2 VBG pO2 VBG HCO3 VBG O2 Saturation VBG Base Excess Carboxyhemoglobin % Sodium 143 Potassium 3.4 Chloride 106 Carbon Dioxide 23 Anion Gap 17 BUN 13 Creatinine 0.98 Estim Creat Clear Calc 94.7 Estimated GFR > 60 POC Glucose 181 H Random Glucose 205 H Lactic Acid Calcium 10.0 D POC WB Ioniz Calcium Phosphorus Magnesium Iron TIBC % Saturation Unsat Iron Binding Ferritin Total Bilirubin 8.5 H AST 104 H ALT 56 H Alkaline Phosphatase 153 H Ammonia 35 Lactate Dehydrogenase Total Protein 7.2 Albumin 4.2 Vitamin B12 Folate Hep Bs Antigen Hep Bs Antibody Blood Type Antibody Screen 08/29/24 08/29/24 08/30/24 20:35 23:31 01:02 WBC RBC Hgb Hct MCV MCH MCHC RDW Plt Count MPV Immature Gran % (Auto) Neut % (Auto) Lymph % (Auto) [place] % (Auto) Eos % (Auto) Baso % (Auto) Lymph # (Auto) [place] # (Auto) Eos # (Auto) Baso # (Auto) Abs Immat Gran (auto) Absolute Neuts (auto) Absolute Nucleated RBC Nucleated RBC % (auto) PT INR O2 Saturation 95.0 ABG pH at Pt Temp 7.48 H ABG pCO2 at Pt Temp 24 L ABG pO2 at Pt Temp 79 L ABG HCO3 18 L ABG Base Excess (Actual) -3.3 VBG pH 7.59 H VBG pCO2 24 VBG pO2 91 VBG HCO3 23 VBG O2 Saturation 99.0 VBG Base Excess 2.9 Carboxyhemoglobin % 1.9 Sodium Potassium Chloride Carbon Dioxide Anion Gap BUN Creatinine Estim Creat Clear Calc Estimated GFR POC Glucose Random Glucose Lactic Acid Calcium POC WB Ioniz Calcium 1.15 Phosphorus Magnesium Iron TIBC % Saturation Unsat Iron Binding Ferritin Total Bilirubin AST ALT Alkaline Phosphatase Ammonia Lactate Dehydrogenase Total Protein Albumin Vitamin B12 Folate Hep Bs Antigen Hep Bs Antibody Blood Type O Positive Antibody Screen NEGATIVE 08/30/24 08/30/24 08/30/24 03:21 04:14 04:21 WBC 7.5 RBC 3.35 L Hgb 11.7 L Hct 34.0 L MCV 101.5 H MCH 34.9 H MCHC 34.4 RDW 19.1 H Plt Count 140 L MPV 10.1 Immature Gran % (Auto) Neut % (Auto) Lymph % (Auto) [place] % (Auto) Eos % (Auto) Baso % (Auto) Lymph # (Auto) [place] # (Auto) Eos # (Auto) Baso # (Auto) Abs Immat Gran (auto) Absolute Neuts (auto) Absolute Nucleated RBC 0.040 H Nucleated RBC % (auto) 0.5 H PT INR O2 Saturation ABG pH at Pt Temp ABG pCO2 at Pt Temp ABG pO2 at Pt Temp ABG HCO3 ABG Base Excess (Actual) VBG pH 7.40 VBG pCO2 32 VBG pO2 57 VBG HCO3 20 L VBG O2 Saturation 80.0 VBG Base Excess -3.8 Carboxyhemoglobin % Sodium 144 Potassium 3.1 L Chloride 107 Carbon Dioxide 18 L Anion Gap 22 H BUN 17 H Creatinine 1.65 H Estim Creat Clear Calc 56.2 Estimated GFR 42 POC Glucose 122 H Random Glucose 140 H Lactic Acid Calcium 9.1 D POC WB Ioniz Calcium Phosphorus 2.5 L Magnesium 1.6 Iron TIBC % Saturation Unsat Iron Binding Ferritin Total Bilirubin AST ALT Alkaline Phosphatase Ammonia Lactate Dehydrogenase Total Protein Albumin 3.8 Vitamin B12 Folate Hep Bs Antigen Hep Bs Antibody Blood Type Antibody Screen 08/30/24 05:30 WBC RBC Hgb Hct MCV MCH MCHC RDW Plt Count MPV Immature Gran % (Auto) Neut % (Auto) Lymph % (Auto) [place] % (Auto) Eos % (Auto) Baso % (Auto) Lymph # (Auto) [place] # (Auto) Eos # (Auto) Baso # (Auto) Abs Immat Gran (auto) Absolute Neuts (auto) Absolute Nucleated RBC Nucleated RBC % (auto) PT INR O2 Saturation ABG pH at Pt Temp ABG pCO2 at Pt Temp ABG pO2 at Pt Temp ABG HCO3 ABG Base Excess (Actual) VBG pH VBG pCO2 VBG pO2 VBG HCO3 VBG O2 Saturation VBG Base Excess Carboxyhemoglobin % Sodium Potassium Chloride Carbon Dioxide Anion Gap BUN Creatinine Estim Creat Clear Calc Estimated GFR POC Glucose Random Glucose Lactic Acid 6.9 H* Calcium POC WB Ioniz Calcium Phosphorus Magnesium Iron TIBC % Saturation Unsat Iron Binding Ferritin Total Bilirubin AST ALT Alkaline Phosphatase Ammonia Lactate Dehydrogenase Total Protein Albumin Vitamin B12 Folate Hep Bs Antigen Hep Bs Antibody Blood Type Antibody Screen Microbiology Microbiology Results: Microbiology 08/23/24 17:45 Urine clean catch Urine Culture - Final Progress Note: A&P Assessment and plan (1) Shock: Status: Acute (2) Aspiration into airway: Status: Acute (3) Acute hypoxic respiratory failure: Status: Acute (4) Ischemia, bowel: Status: Acute Plan Patient is a 64 Y M w/ alcohol use disorder presenting initially to emergency department on 08/23 w/ signs/symptoms c/f decompensated cirrhosis, found to have hyponatremia, admitted ICU, subsequently transferred to medicine floor; hospital course c/b persistent encephalopathy; on 08/29 PM, patient suffered aspiration event, intubated, transferred to ICU; CT lazaro-scans c/f bowel ischemia; ICU course c/b shock, likely distributive, necessitating high-dose vasopressors N: intubated, sedated w/ propofol, fentanyl gtt, wean as tolerated; encephalopathy, likely toxic-metabolic; to consider MRI brain if hemodynamically stable CV: shock, likely distributive, norepinephrine, vasopressin gtt, wean as tolerated R: intubated in setting of aspiration, wean as tolerated GI: alcohol use disorder, c/b likely cirrhosis, charcterized by ascites; CT A/P 08/29 c/f bowel ischemia, empiric antibiotics, appreciate general surgery recommendations : acute renal insufficiency, to monitor renal indices, electrolytes very closely H: to avoid chemical DVT prophylaxis for possible procedural planning; mechanical devices ID: shock, likely distributive, to follow-up blood cultures, empiric vancomycin, zosyn E: to monitor hypo-/hyper-glycemia P: alcohol use disorder Quality Stroke Does the patient have a stroke diagnosis?: No VTE Prior VTE?: No VTE Risk Level:: Medical - low VTE Device Contraindication: N/A - Device Ordered VTE Drug Contraindication: Treatment Not Tolerated
[2024-08-30] MEDS: Norepinephrine Bitartrate/NS 32 MG/250 ML PLAST..BAG 29.27 MG IVCONT (07:36)
--- NOTE | 2024-08-30 07:55 | PM.CNGS ---
History of Present Illness Consult details Consult date: 08/30/24 <Analia Bush PA-C - Last Filed: 08/30/24 10:45> Requesting physician: Vincent Betts <Analia Bush PA-C - Last Filed: 08/30/24 10:45> Narrative: 64-year-old gentleman with PMH significant for alcohol abuse disorder, history of possible TIA who initially presented to the ED with complaints of jaundice. He drinks about 10-12 beer everyday for the past several years. He was admitted to the ICU for further treatment of alcoholic hepatitis with presenting bilirubin of 8, AST ALT 394/119 and severe hyponatremia of 119. He improved clinically and was transferred to the medical floor on 08/25. Last night he was found to have an altered mental status with GCS of 9. He was tachycardic, tachypneic. He had an NGT in place at that time and rectal tube. His abdomen was increasingly distended from previous. Chest and abdomen/pelvis CT scans were obtained. He was started on IV Zosyn empirically for possible aspiration. He returned from CT scan and vomited. He subsequently became hypoxic with O2 sat in 60s. Rapid response called and patient intubated for airway protection, transferred to ICU. He is on [address] scan abd/pelvis showed diffusely dilated colon with pneumatosis, portal venous gas. General surgery therefore consulted. Lactic acid 7.9 this morning, total bili 8.5 yesterday. No leukocytosis. <Analia Bush PA-C - Last Filed: 08/30/24 10:45> Review of Systems Review of Systems: Yes unobtainable due to endotracheal tube and Unobtainable due to mental condition <Analia Bush PA-C - Last Filed: 08/30/24 10:45> [facility] Past Medical History Medical History: Medical History No known health problems <WILLA Carrion Last Filed: 08/30/24 10:45> Family History Family History: Family History Father HTN (hypertension) Cancer History of heart attack Mother No problems noted. <Analia Bush PA-C - Last Filed: 08/30/24 10:45> Surgical History Surgical History: Surgical History History of umbilical hernia repair <Analia Bush PA-C - Last Filed: 08/30/24 10:45> Social History Social History: Social History Household Members: Family Household Members Other:: Son Housing: House Do you presently have visiting nurse or other home services: No Alcohol intake: current Alcohol intake frequency: 3 or more drinks per day Patient Tobacco Use Status: Never used Tobacco service: No Current occupational status: retired <WILLA Carrion Last Filed: 08/30/24 10:45> Meds Allergies/Adverse reactions: Allergies Allergy/AdvReac Type Severity Reaction Status Date / Time No Known Allergies Allergy Verified 08/23/24 10:33 [No Known Allergies*] <Analia Bush PA-C - Last Filed: 08/30/24 10:45> Active Medications: Current Medications Chlorhexidine Gluconate (Chlorhexidine Gluc Oral Rinse 15 Ml Mouthwash) 15 ml BUCCAL TID [facility] Last Admin: 08/30/24 09:26 Dose: 15 ml Piperacillin Sod/Tazobactam (Sod 3.375 gm/ Sodium Chloride) 50 mls @ 100 mls/hr IV Q6H [facility] Last Admin: 08/30/24 09:29 Dose: 100 mls/hr Propofol (Diprivan) 1,000 mg in 100 mls @ 0 mls/hr IVCONT .Q0M [facility]; Protocol Last Titration: 08/30/24 05:50 Dose: 20 mcg/kg/min, 10.7 mls/hr Vasopressin (Vasostrict) 20 unit in 100 mls @ 12 mls/hr IVCONT .Q8H20M [facility] Last Admin: 08/30/24 07:56 Dose: 0.04 unit/min, 12 mls/hr Thiamine HCl 100 mg/ Sodium (Chloride) 101 mls @ 202 mls/hr IV DAILY [facility] Last Admin: 08/30/24 09:31 Dose: 202 mls/hr Folic Acid 1 mg/ Sodium (Chloride) 50.2 mls @ 100.4 mls/hr IV DAILY [facility] Fentanyl (Sublimaze/Ns) 1,000 mcg in 100 mls @ 0 mls/hr IVCONT .Q0M [facility]; Protocol Last Titration: 08/30/24 05:00 Dose: 50 mcg/hr, 5 mls/hr Norepinephrine Bitartrate (Levophed) 32 mg in 250 mls @ 0 mls/hr IVCONT .Q0M [facility]; Protocol Last Titration: 08/30/24 09:13 Dose: 0.72 mcg/kg/min, 30.11 mls/hr Sodium Bicarbonate 150 meq/ (Dextrose) 1,000 mls @ 100 mls/hr IV .Q10H [facility] Last Admin: 08/30/24 09:01 Dose: 100 mls/hr Vancomycin HCl (Vancomycin/Ns) 2,000 mg in 500 mls @ 250 mls/hr IV ONCE ONE Stop: 08/30/24 10:59 Naloxone HCl (Naloxone Hcl 0.4 Mg/Ml Vial) 0.2 mg IVPUSH Q2M PRN PRN Reason: Excessive sedation or RR < 8 Pantoprazole Sodium (Pantoprazole Sodium 40 Mg/10 Ml Vial) 40 mg IVPUSH DAILY@0630 [facility] Last Admin: 08/30/24 05:13 Dose: 40 mg Pharmacy Consult (Consult Rx Etoh Phenob Im/Po) 1 each MISCELLANE ONCE PRN; Protocol PRN Reason: Consult order Pharmacy Consult (Consult Rx Vancomycin Dosing) 1 each MISCELLANE DAILY PRN PRN Reason: Consult order Sodium Chloride (0.9 % Sodium Chloride Flush 3 Ml Syringe) 3 ml IVFLUSH QSHIFT [facility] Last Admin: 08/30/24 07:16 Dose: 3 ml <Analia Bush PA-C - Last Filed: 08/30/24 10:45> Home medications: Home Medications ?Medication ?Instructions ?Recorded ?Confirmed ?Last Taken ?Type No Known Home Meds 08/23/24 08/23/24 Unknown History <Analia Bush PA-C - Last Filed: 08/30/24 10:45> Physical Exam Vital Signs: Vital Signs: Last Vital Signs Temp 100.6 F H 08/30/24 09:00 Pulse 107 H 08/30/24 09:13 Resp 18 08/30/24 09:00 BP 105/68 08/30/24 09:13 Pulse Ox 97 08/30/24 09:00 O2 Del Method Mechanical Ventil ation 08/30/24 09:00 O2 Flow Rate 1 08/24/24 22:00 FiO2 60 08/30/24 09:00 BMI result Body Mass Index 23.9 <Analia Bush PA-C - Last Filed: 08/30/24 10:45> Resp: Other: intubated on vent <Analia Bush PA-C - Last Filed: 08/30/24 10:45> Cardio: Rate: tachycardic <Analia Bush PA-C - Last Filed: 08/30/24 10:45> GI: Inspection: Yes distended (significantly ) <WILLA Carrion Last Filed: 08/30/24 10:45> Palpation (GI): Soft to palpation and not rigid <Analia Bush PA-C - Last Filed: 08/30/24 10:45> Percussion: Yes tympanic to percussion <WILLA Carrion Last Filed: 08/30/24 10:45> Skin: General skin exam: jaundice <WILLA Carrion Last Filed: 08/30/24 10:45> Results Labs Result diagrams: 08/30/24 04:14 08/30/24 04:14 <WILLA Carrion Last Filed: 08/30/24 10:45> Labs: Abnormal lab results 08/29/24 08/29/24 08/29/24 Range/Units 08:13 18:14 18:19 RBC (4.60-5.80) X10*6/uL Hgb (14.0-18.0) g/dl Hct (42.0-52.0) % MCV (80.0-98.0) fL MCH (27.0-33.0) pg RDW (11.0-16.0) % Plt Count (160-400) X10*3/uL MPV (9.4-12.4) fL Immature Gran % (Auto) (0.0-0.4) % Neut % (Auto) (45-73) % Lymph % (Auto) (20-40) % Lymph # (Auto) (1.2-4.9) X10*3/uL Abs Immat Gran (auto) (0.00-0.03) X10*3/uL Absolute Nucleated RBC (0.0-0.012) X10*3/uL Nucleated RBC % (auto) (0.0-0.2) /100WBC PT (10.9-12.4) SEC INR (0.9-1.1) ABG pH at Pt Temp (7.35-7.45) ABG pCO2 at Pt Temp (32-45) mmHg ABG pO2 at Pt Temp (83-108) mmHg ABG HCO3 (22-26) mmol/L VBG pH 7.56 H (7.32-7.43) VBG HCO3 (22-26) mmol/L Potassium (3.3-5.1) mmol/L Carbon Dioxide (22-29) mmol/L Anion Gap (12-20) BUN (9-16) mg/dL Creatinine (0.5-1.4) mg/dL POC Glucose (60-115) mg/dL Random Glucose (60-115) mg/dL Lactic Acid (0.5-2.0) mmol/L Lactic Acid F/U @ 2Hr (0.5-2.0) mmol/L Phosphorus (2.7-4.5) mg/dL Ferritin 2924 H (20-250) ng/mL Total Bilirubin (0.0-1.0) mg/dL AST (5-37) U/L ALT (0-40) U/L Alkaline Phosphatase (39-117) U/L Lactate Dehydrogenase 291 H (118-273) U/L 08/29/24 08/29/24 08/29/24 Range/Units 20:00 20:30 20:35 RBC 3.53 L (4.60-5.80) X10*6/uL Hgb 12.2 L (14.0-18.0) g/dl Hct 34.8 L (42.0-52.0) % MCV 98.6 H (80.0-98.0) fL MCH 34.6 H (27.0-33.0) pg RDW 18.5 H (11.0-16.0) % Plt Count 115 L (160-400) X10*3/uL MPV 9.0 L (9.4-12.4) fL Immature Gran % (Auto) 0.7 H (0.0-0.4) % Neut % (Auto) 84.7 H (45-73) % Lymph % (Auto) 4.6 L (20-40) % Lymph # (Auto) 0.3 L (1.2-4.9) X10*3/uL Abs Immat Gran (auto) 0.04 H (0.00-0.03) X10*3/uL Absolute Nucleated RBC (0.0-0.012) X10*3/uL Nucleated RBC % (auto) (0.0-0.2) /100WBC PT 18.9 H (10.9-12.4) SEC INR 1.6 H (0.9-1.1) ABG pH at Pt Temp (7.35-7.45) ABG pCO2 at Pt Temp (32-45) mmHg ABG pO2 at Pt Temp (83-108) mmHg ABG HCO3 (22-26) mmol/L VBG pH 7.59 H (7.32-7.43) VBG HCO3 (22-26) mmol/L Potassium (3.3-5.1) mmol/L Carbon Dioxide (22-29) mmol/L Anion Gap (12-20) BUN (9-16) mg/dL Creatinine (0.5-1.4) mg/dL POC Glucose 181 H (60-115) mg/dL Random Glucose 205 H (60-115) mg/dL Lactic Acid (0.5-2.0) mmol/L Lactic Acid F/U @ 2Hr (0.5-2.0) mmol/L Phosphorus (2.7-4.5) mg/dL Ferritin (20-250) ng/mL Total Bilirubin 8.5 H (0.0-1.0) mg/dL AST 104 H (5-37) U/L ALT 56 H (0-40) U/L Alkaline Phosphatase 153 H (39-117) U/L Lactate Dehydrogenase (118-273) U/L 08/30/24 08/30/24 08/30/24 Range/Units 01:02 03:21 04:14 RBC 3.35 L (4.60-5.80) X10*6/uL Hgb 11.7 L (14.0-18.0) g/dl Hct 34.0 L (42.0-52.0) % MCV 101.5 H (80.0-98.0) fL MCH 34.9 H (27.0-33.0) pg RDW 19.1 H (11.0-16.0) % Plt Count 140 L (160-400) X10*3/uL MPV (9.4-12.4) fL Immature Gran % (Auto) (0.0-0.4) % Neut % (Auto) (45-73) % Lymph % (Auto) (20-40) % Lymph # (Auto) (1.2-4.9) X10*3/uL Abs Immat Gran (auto) (0.00-0.03) X10*3/uL Absolute Nucleated RBC 0.040 H (0.0-0.012) X10*3/uL Nucleated RBC % (auto) 0.5 H (0.0-0.2) /100WBC PT (10.9-12.4) SEC INR (0.9-1.1) ABG pH at Pt Temp 7.48 H (7.35-7.45) ABG pCO2 at Pt Temp 24 L (32-45) mmHg ABG pO2 at Pt Temp 79 L (83-108) mmHg ABG HCO3 18 L (22-26) mmol/L VBG pH (7.32-7.43) VBG HCO3 (22-26) mmol/L Potassium 3.1 L (3.3-5.1) mmol/L Carbon Dioxide 18 L (22-29) mmol/L Anion Gap 22 H (12-20) BUN 17 H (9-16) mg/dL Creatinine 1.65 H (0.5-1.4) mg/dL POC Glucose 122 H (60-115) mg/dL Random Glucose 140 H (60-115) mg/dL Lactic Acid (0.5-2.0) mmol/L Lactic Acid F/U @ 2Hr (0.5-2.0) mmol/L Phosphorus 2.5 L (2.7-4.5) mg/dL Ferritin (20-250) ng/mL Total Bilirubin (0.0-1.0) mg/dL AST (5-37) U/L ALT (0-40) U/L Alkaline Phosphatase (39-117) U/L Lactate Dehydrogenase (118-273) U/L 08/30/24 08/30/24 08/30/24 Range/Units 04:21 05:30 07:42 RBC (4.60-5.80) X10*6/uL Hgb (14.0-18.0) g/dl Hct (42.0-52.0) % MCV (80.0-98.0) fL MCH (27.0-33.0) pg RDW (11.0-16.0) % Plt Count (160-400) X10*3/uL MPV (9.4-12.4) fL Immature Gran % (Auto) (0.0-0.4) % Neut % (Auto) (45-73) % Lymph % (Auto) (20-40) % Lymph # (Auto) (1.2-4.9) X10*3/uL Abs Immat Gran (auto) (0.00-0.03) X10*3/uL Absolute Nucleated RBC (0.0-0.012) X10*3/uL Nucleated RBC % (auto) (0.0-0.2) /100WBC PT (10.9-12.4) SEC INR (0.9-1.1) ABG pH at Pt Temp (7.35-7.45) ABG pCO2 at Pt Temp (32-45) mmHg ABG pO2 at Pt Temp (83-108) mmHg ABG HCO3 (22-26) mmol/L VBG pH (7.32-7.43) VBG HCO3 20 L (22-26) mmol/L Potassium (3.3-5.1) mmol/L Carbon Dioxide (22-29) mmol/L Anion Gap (12-20) BUN (9-16) mg/dL Creatinine (0.5-1.4) mg/dL POC Glucose (60-115) mg/dL Random Glucose (60-115) mg/dL Lactic Acid 6.9 H* (0.5-2.0) mmol/L Lactic Acid F/U @ 2Hr 7.9 H* (0.5-2.0) mmol/L Phosphorus (2.7-4.5) mg/dL Ferritin (20-250) ng/mL Total Bilirubin (0.0-1.0) mg/dL AST (5-37) U/L ALT (0-40) U/L Alkaline Phosphatase (39-117) U/L Lactate Dehydrogenase (118-273) U/L Short CBC 08/29/24 08/30/24 Range/Units 20:30 04:14 WBC 5.7 7.5 (4.8-10.8) X10*3/uL Hgb 12.2 L 11.7 L (14.0-18.0) g/dl Hct 34.8 L 34.0 L (42.0-52.0) % Plt Count 115 L 140 L (160-400) X10*3/uL BMP 08/29/24 08/30/24 20:30 04:14 Sodium 143 144 Potassium 3.4 3.1 L Chloride 106 107 Carbon Dioxide 23 18 L BUN 13 17 H Creatinine 0.98 1.65 H Calcium 10.0 D 9.1 D Liver Function 08/29/24 08/30/24 Range/Units 20:30 04:14 Total Bilirubin 8.5 H (0.0-1.0) mg/dL AST 104 H (5-37) U/L ALT 56 H (0-40) U/L Alkaline Phosphatase 153 H (39-117) U/L Albumin 4.2 3.8 (3.5-5.0) g/dL Urine 08/23/24 Range/Units 17:45 Urine Color Dark Yellow Urine Appearance Cloudy Urine pH 6.0 (5.0-9.0) Ur Specific [place] 1.020 (1.005-1.025) Urine Protein Trace (Neg-Trace) mg/dL Urine Glucose (UA) Negative (Negative) mg/dL All other labs normal. <Analia Bush PA-C - Last Filed: 08/30/24 10:45> Imaging Abdomen CT scan report/results: report reviewed and image reviewed <Analia Bush PA-C - Last Filed: 08/30/24 10:45> Assessment and Plan (1) Pneumatosis intestinalis of large intestine: Status: Acute <Analia Bush PA-C - Last Filed: 08/30/24 10:45> (2) Ischemia, bowel: Status: Acute <Analia Bush PA-C - Last Filed: 08/30/24 10:45> 64-year-old gentleman with PMH significant for alcohol abuse disorder admitted for acute alcoholic hepatatis, hyponatremia intially improved who developed worsening encephalopathy with concern for aspiration PNA, found to have diffuse dilatation of the colon with pneumatosis, portal venous gas. Unclear whether this developed due to a low flow state vs colonic ileus due to acute illness. C diff negative this morning. Lactic acid is increasing. Given the colonic pneumatosis with portal venous gas, emergent exploratory laparotomy, possible subtotal colectomy would be recommended unfortunately the patient is critically ill with a high mortality rate with a bilirubin of 8 and would likely not survive the surgery. The patient's status will be discussed with the family to determine further plan. <Analia Bush PA-C - Last Filed: 08/30/24 10:45> 64-year-old gentleman with PMH significant for alcohol abuse disorder admitted for acute alcoholic hepatatis, hyponatremia intially improved who developed worsening encephalopathy with concern for aspiration PNA, found to have diffuse dilatation of the colon with pneumatosis, portal venous gas. Unclear whether this developed due to a low flow state vs colonic ileus due to acute illness. C diff negative this morning. Lactic acid is increasing. Given the colonic pneumatosis with portal venous gas, emergent exploratory laparotomy, possible subtotal colectomy would be recommended unfortunately the patient is critically ill with a high mortality rate with a bilirubin of 8 and would likely not survive the surgery. The patient's status will be discussed with the family to determine further plan. Initial conversation was had with the patient's son Lonnie ([phone]) early this morning discussing the dire situation in which his father is in. He will contact his mother as well as his brother and they will come to the hospital which I recommend to do as well and further discussion can be had with the in person. Patient was other son met with me and with my surgical PA and we again discussed the rather serious clinical predicted mid Mr. Guardado is in. He has advanced liver disease, he is on pressors, he has a lactate greater than 8, his bilirubin is a, and is portal venous air and colonic intestinal pneumatosis which portends a very dismal outcome. Options are rather limited in that the patient can undergo exploratory laparotomy and will require a near total colectomy and ileostomy which in and of itself is a major surgical procedure on a very ill patient on multiple pressors and hepatic failure. There is high probability that the patient would not survive such a procedure of this magnitude. The other extreme of management the patient is that he can be made comfort measures only. The son understands and he in his brother and mother agree that to undertake such a significant operation with little optimism for a good outcome would be futile. At present, no surgical intervention is planned. Further care per ICU team. <Scotty Kilpatrick MD - Last Filed: 08/30/24 11:32> Procedures Date of Service Date of Service: 08/30/24 <Analia Bush PA-C - Last Filed: 08/30/24 10:45> 08/30/24 <Scotty Kilpatrick MD - Last Filed: 08/30/24 11:32> Arterial Line Size (Gauge): 20 <Analia Bush PA-C - Last Filed: 08/30/24 10:45>
[2024-08-30 08:24] LABS: ~Lactic Acid-LAB USE ONLY 7.9 mmol/L (0.5-2.0)
[2024-08-30] MEDS: Calcium Chloride 1 GM/10 ML SYRINGE IVPUSH ×2 (08:33→13:03)
[2024-08-30] MEDS: Sodium Bicarbonate 8.4% 50 MEQ/50 ML SYRINGE IVPUSH (08:33)
[2024-08-30] MEDS: Magnesium Sulfate/D5W 1 GM/100 ML PIGGYBACK IV (08:33)
[2024-08-30] MEDS: Sodium Bicarbonate 8.4% 150 MEQ in Dextrose 5 % 850 ML 100 MEQ IV ×2 (09:01→18:16)
[2024-08-30 09:20] LABS: CDiff Gene PCR NEGATIVE (Negative)
[2024-08-30] MEDS: Thiamine HCL 100 MG in 0.9 % Sodium Chloride 100 ML 202 MG IV (09:31)
[2024-08-30 09:56] LABS: Reflex Lactate? 2 Y
[2024-08-30] MEDS: vancomycin/NS 2,000 MG/500 ML PLAST..BAG 250 MG IV (10:16)
--- NOTE | 2024-08-30 10:20 | MHC.CLN ---
PT IS INTUBATED AND SEDATED PT WITH INCREASED NUTRITION RISK R/T PRESSURE INJURY CURRENTLY NPO IF TF NEEDED; RECOMMEND JEVITY 1.0 AT MAX GOAL RATE 95ML/HR WITH 240ML FREE WATER FLUSHES Q 6 HRS TO PROVIDE 2417KCALS (2699KCALS WITH SEDATION; 30KCALS/KG), 101G PROTEIN (1.1G/KG), 2864ML TOTAL WATER FROM FORMULA AND FLUSHES (32ML/KG) MONITOR TOLERANCE AND LYTES FOLLOWING FOR DIET ADVANCEMENT SEE ALSO FULL CLINICAL NUTRITION ASSESSMENT
[2024-08-30] MEDS: Folic Acid 1 MG in 0.9 % Sodium Chloride 50 ML 100.4 MG IV (10:22)
[2024-08-30 10:27] LABS: TSH reflex Free T4 0.92 uIU/mL (0.32-4.0)
--- NOTE | 2024-08-30 10:28 | PHA.PROG ---
Admission Date/Time: August 23, 2024 12:28 Indication: sepsis/shock Weight in k.2 kg Adjusted body weight in Kg: [place] body weight in Kg: Obesity Dosing Indication % IBW: Serum Creatinine - Last 168 Hours 08/23/24 08/24/24 08/24/24 21:26 04:07 10:38 Creatinine 0.57 0.65 0.75 08/24/24 08/24/24 08/24/24 15:35 19:10 23:09 Creatinine 0.64 0.61 0.70 08/25/24 08/25/24 08/26/24 05:05 11:04 07:41 Creatinine 0.73 0.72 0.55 08/27/24 08/29/24 08/29/24 08:24 08:13 20:30 Creatinine 0.65 0.72 0.98 08/30/24 04:14 Creatinine 1.65 H Estimated CrCl and GFR - Last 168 Hours 08/23/24 08/24/24 08/24/24 21:26 04:07 10:38 Estim Creat Clear Calc 162.8 142.8 123.7 Estimated GFR > 60 > 60 > 60 08/24/24 08/24/24 08/24/24 15:35 19:10 23:09 Estim Creat Clear Calc 145.0 152.1 132.6 Estimated GFR > 60 > 60 > 60 08/25/24 08/25/24 08/26/24 05:05 11:04 07:41 Estim Creat Clear Calc 127.1 128.9 168.7 Estimated GFR > 60 > 60 > 60 08/27/24 08/29/24 08/29/24 08:24 08:13 20:30 Estim Creat Clear Calc 142.8 128.9 94.7 Estimated GFR > 60 > 60 > 60 08/30/24 04:14 Estim Creat Clear Calc 56.2 Estimated GFR 42 Vancomycin Loading Dose: 2000mg Current Vancomycin Dosing Regimen: 1250mg Q24H Vancomycin Monitoring using AUC goal of 400 - 600 range with trough as surrogate marker: 493mg/L Date and Time for next Vancomycin Level to be drawn: 09/01 @0800 Pharmacist Comments on Vancomycin Plan: Patient's renal function is a bit unstable, so getting level after 2 doses. May need to adjust to 1500mg Q24H if renal improves. Predicted trough of 15.2 mg/L Vancomycin dosing will take advantage of [employer] as a clinical decision support tool that uses Bayesian modeling to calculate individual patient's pharmacokinetic parameters and forecast the patient's drug concentration time course with the target goal AUC 24 range of 400 - 600 mg/L/hr.
[2024-08-30] MEDS: Hydrocortisone Sod Succ/PF 100 MG VIAL 50 MG IVPUSH ×3 (11:47→22:43)
[2024-08-30] MEDS: Acetaminophen 1,000 MG/100 ML PIGGYBACK 400 MG IV (11:51)
[2024-08-30 12:17] LABS: Hematocrit 28.8 % (42.0-52.0); Hemoglobin 9.9 g/dl (14.0-18.0); Mean Corpuscular HGB Conc 34.4 g/dl (31.0-36.0); Mean Corpuscular Hemoglobin 35.6 pg (27.0-33.0); Mean Corpuscular Volume 103.6 fL (80.0-98.0); Mean Platelet Volume 10.5 fL (9.4-12.4); NRBC Pct Auto 0.5 /100WBC (0.0-0.2); Platelet Count 102 X10*3/uL (160-400); Red Blood Count 2.78 X10*6/uL (4.60-5.80); Red Cell Distribution Width 18.8 % (11.0-16.0)
[2024-08-30 12:19] LABS: WBC ABN SCTR FOR CBC 1; White Blood Count 9.4 X10*3/uL (4.8-10.8)
[2024-08-30 12:22] LABS: VBG Base Excess -2.6 mmol/L; VBG HCO3 22 mmol/L (22-26); VBG pCO2 40 mmHg; VBG pH 7.35 (7.32-7.43); VBG pO2 63 mmHg
[2024-08-30 12:23] LABS: Venous Blood Gas Refer to POC result
[2024-08-30 12:35] LABS: Alanine Aminotransferase 39 U/L (0-40); Albumin Level 3.9 g/dL (3.5-5.0); Alkaline Phosphatase 81 U/L (39-117); Anion Gap 19 (12-20); Aspartate Amino Transferase 74 U/L (5-37); Blood Urea Nitrogen 21 mg/dL (9-16); Carbon Dioxide 22 mmol/L (22-29); Chloride 106 mmol/L (96-108); Creatinine Clr Calc Pharmacy 51.5; Estimated Glomerular Filt Rate 38; Glucose Random 101 mg/dL (60-115); Magnesium 2.1 mg/dL (1.6-2.6); Phosphorus 4.7 mg/dL (2.7-4.5); Sodium 144 mmol/L (135-145); Total Protein 5.8 g/dL (6.5-8.0)
[2024-08-30 12:41] LABS: Band Neutrophils Percent 38 % (3-5); Lymphocytes Absolute Manual 0.9 X10*3/uL (1.2-4.9); Lymphocytes Percent Manual 10 % (20-40); Metamyelocytes Absolute 0.7 X10*3/uL; Metamyelocytes Percent 7 %; Myelocytes Absolute 0.3 X10*/uL; Myelocytes Percent 3 %; Neutrophils Absolute Manual 7.4 X10*3/uL (2.0-8.3); Neutrophils Percent Manual 41 % (45-73); Nucleated Red Blood Cells 1 /100WBC (0-0); Promyelocytes Absolute 0.1 X10*3/uL; Promyelocytes Percent 1 %
[2024-08-30 12:44] LABS: Burr Cells 1+ (0-2) /OIF; Macrocytosis 1+ (5-14) /OIF; Platelet Estimate DECREASED (NORMAL); Platelet Morphology Comment NORMAL; Polychromasia 1+ (0-2) /OIF; RBC Morphology NOTED; Schistocytes 1+ (0-2) /OIF
[2024-08-30] MEDS: Potassium Chloride/H20 20 MEQ/100 ML PIGGYBACK 100 MEQ IV ×2 (13:02→14:29)
[2024-08-30 13:44] LABS: Lactic Acid 5.8 mmol/L (0.5-2.0)
--- NOTE | 2024-08-30 13:50 | MHC.CM.PN ---
EMR REVIEWED. PT REMAINS INTUBATED AND SEDATED IN ICU. GOC DISCUSSIONS UNDERWAY WITH FAMILY. CM WILL CONTINUE TO FOLLOW.
[2024-08-30 14:11] LABS: Reflex Lactate? Lactic Acid Added
--- NOTE | 2024-08-30 15:16 | MHC.SLORD ---
Speech Language Pathology Order Status: Pt currently intubated and sedated, CUSTOMER SERVICE ADVISOR to assess functional swallow s/p extubation as appropriate.
[2024-08-30] MEDS: Norepinephrine Bitartrate/NS 32 MG/250 ML PLAST..BAG 31.78 MG IVCONT (15:27)
[2024-08-30 15:32] LABS: ~Lactic Acid-LAB USE ONLY 5.5 mmol/L (0.5-2.0)
[2024-08-30 16:37] LABS: Reflex Lactate? 2 Y
[2024-08-30 17:13] LABS: ~Lactic Acid-LAB USE ONLY 5.7 mmol/L (0.5-2.0)
[2024-08-30] MEDS: fentaNYL citrate/NS 1,000 MCG/100 ML PLAST..BAG 5 MCG IVCONT (18:09)
[2024-08-30 18:39] LABS: Alanine Aminotransferase 41 U/L (0-40); Albumin Level 3.8 g/dL (3.5-5.0); Alkaline Phosphatase 68 U/L (39-117); Anion Gap 19 (12-20); Aspartate Amino Transferase 77 U/L (5-37); Bilirubin Total 6.9 mg/dL (0.0-1.0); Blood Urea Nitrogen 23 mg/dL (9-16); Calcium 9.5 mg/dL (8.4-10.2); Carbon Dioxide 22 mmol/L (22-29); Chloride 105 mmol/L (96-108); Creatinine Clr Calc Pharmacy 62.7; Estimated Glomerular Filt Rate 48; Glucose Random 93 mg/dL (60-115); Magnesium 1.9 mg/dL (1.6-2.6); Phosphorus 5.8 mg/dL (2.7-4.5); Potassium 3.9 mmol/L (3.3-5.1); Sodium 142 mmol/L (135-145); Total Protein 5.9 g/dL (6.5-8.0)
[2024-08-30] MEDS: Norepinephrine Bitartrate/NS 32 MG/250 ML PLAST..BAG 24.25 MG IVCONT (23:52)
[2024-08-31] VITALS (37 sets, daily range): BP systolic 114–135; BP diastolic 68–80; PULSE 82–99; RESP 12–20; TEMP 35–37; O2SAT 94–97; BMI 25.8
[2024-08-31] MEDS: propofoL 1,000 MG/100 ML VIAL 16.06 MG IVCONT ×2 (01:20→07:26)
[2024-08-31] MEDS: Sodium Bicarbonate 8.4% 150 MEQ in Dextrose 5 % 850 ML 100 MEQ IV (03:51)
[2024-08-31] MEDS: Piperacillin Sodium/Tazobactam 3.375 GM in 0.9 % Sodium Chloride 50 ML IV ×2 (03:51→09:50)
[2024-08-31] MEDS: Hydrocortisone Sod Succ/PF 100 MG VIAL 50 MG IVPUSH (04:57)
[2024-08-31 05:17] LABS: VBG Base Excess -0.8 mmol/L; VBG HCO3 24 mmol/L (22-26); VBG pCO2 42 mmHg; VBG pH 7.36 (7.32-7.43); VBG pO2 66 mmHg
[2024-08-31 05:20] LABS: Venous Blood Gas Refer to POC result
[2024-08-31 05:41] LABS: Hematocrit 32.2 % (42.0-52.0); Hemoglobin 10.4 g/dl (14.0-18.0); Mean Corpuscular HGB Conc 32.3 g/dl (31.0-36.0); Mean Corpuscular Hemoglobin 34.2 pg (27.0-33.0); Mean Corpuscular Volume 105.9 fL (80.0-98.0); Mean Platelet Volume 10.8 fL (9.4-12.4); Platelet Count 102 X10*3/uL (160-400); Red Blood Count 3.04 X10*6/uL (4.60-5.80); Red Cell Distribution Width 19.1 % (11.0-16.0)
[2024-08-31 05:52] LABS: WBC ABN SCTR FOR CBC 1; White Blood Count 19.1 X10*3/uL (4.8-10.8)
[2024-08-31 05:53] LABS: INTERNATIONAL NORM RATIO 2.7 (0.9-1.1); Prothrombin Time 32.1 SEC (10.9-12.4)
[2024-08-31 05:58] LABS: Alanine Aminotransferase 39 U/L (0-40); Albumin Level 3.5 g/dL (3.5-5.0); Alkaline Phosphatase 49 U/L (39-117); Anion Gap 22 (12-20); Aspartate Amino Transferase 58 U/L (5-37); Bilirubin Total 7.4 mg/dL (0.0-1.0); Blood Urea Nitrogen 20 mg/dL (9-16); Calcium 9.1 mg/dL (8.4-10.2); Carbon Dioxide 22 mmol/L (22-29); Chloride 102 mmol/L (96-108); Creatinine Clr Calc Pharmacy 111.8; Estimated Glomerular Filt Rate > 60; Glucose Random 140 mg/dL (60-115); Phosphorus 3.6 mg/dL (2.7-4.5); Potassium 3.8 mmol/L (3.3-5.1); Sodium 142 mmol/L (135-145); Total Protein 5.6 g/dL (6.5-8.0)
[2024-08-31] MEDS: Pantoprazole Sodium 40 MG/10 ML VIAL IVPUSH (06:01)
[2024-08-31] MEDS: Vasopressin 20 UNIT/100 ML INFUS..BTL 12 UNIT IVCONT (06:17)
[2024-08-31 06:21] LABS: Atypical Lymph Absolute Manual 0.4 x10*3/uL; Band Neutrophils Percent 43 % (3-5); Lymphocytes Absolute Manual 0.8 X10*3/uL (1.2-4.9); Lymphocytes Percent Manual 4 % (20-40); Metamyelocytes Absolute 1.5 X10*3/uL; Metamyelocytes Percent 8 %; Monocytes Absolute Manual 1.9 X10*3/uL (0.1-1.2); Monocytes Percent Manual 10 % (2-11); Myelocytes Absolute 0.4 X10*/uL; Myelocytes Percent 2 %; Neutrophils Absolute Manual 14.5 X10*3/uL (2.0-8.3); Neutrophils Percent Manual 33 % (45-73)
[2024-08-31 06:23] LABS: Basophilic Stippling 1+ (0-2) /OIF; Dohle Bodies PRESENT; RBC Morphology NOTED; Toxic Granulation PRESENT; Toxic Vacuolation PRESENT
[2024-08-31 06:25] LABS: Burr Cells 1+ (0-2) /OIF; Ovalocytes 1+ (5-14) /OIF; Polychromasia 1+ (0-2) /OIF
[2024-08-31 06:26] LABS: Large Platelet PRESENT; Platelet Estimate DECREASED (NORMAL); Platelet Morphology Comment NOTED; Schistocytes 1+ (0-2) /OIF
--- NOTE | 2024-08-31 07:28 | HE.PHANOTE ---
RE: vanco Patient's creatinine improved significantly, increased interval to Q12H; predicted AUC of 568 mg/L, trough of 18. Level remains at the same time 09/01 @0800
--- NOTE | 2024-08-31 08:08 | PM.CCPN ---
Subjective Subjective Date of Service: 08/31/24 Interval History: no significant overnight events Critical Care Time (minutes): 60 Physical Exam Vital Signs: Vital Signs: Last Vital Signs Temp 97.9 F 08/31/24 07:00 Pulse 87 08/31/24 07:23 Resp 20 08/31/24 07:00 BP 121/74 08/31/24 07:23 Pulse Ox 94 08/31/24 07:57 O2 Del Method Mechanical Ventil ation 08/31/24 07:00 O2 Flow Rate 1 08/24/24 22:00 FiO2 35 08/31/24 07:57 BMI result Body Mass Index 25.8 Const: Other: intubated, sedated; no appreciable spontaneous movements General: comfortable and no acute distress HEENT: Head: Yes normal to inspection, Yes normocephalic and Yes atraumatic Eyes: General: appearance normal, both eyes and all related structures Neck: Neck: Yes normal visual inspection, Yes full ROM, Yes no meningeal signs, Yes trachea midline and Yes supple Resp: Other: no appreciable rales, rhonchi, wheezing Effort & Inspection: normal respiratory effort Cardio: Rate: regular rate Rhythm: regular rhythm GI: Inspection: Yes normal to inspection, No Abdominal wall edema and Yes distended Palpation (GI): Soft to palpation, not firm, nontender, no guarding and not rigid Skin: Other: appreciable scattered echymoses Neuro: General: tone normal and no meningeal signs Extrem: General: Yes normal to inspection, Yes full ROM, Yes capillary refill normal and Yes no clubbing, cyanosis or edema Psych: Other: unable to assess Objective Data Labs 08/31/24 05:06 08/31/24 05:06 Labs: Laboratory Results - last 24 hr 08/30/24 08/30/24 08/30/24 07:42 07:58 09:17 WBC RBC Hgb Hct MCV MCH MCHC RDW Plt Count MPV Immature Gran % (Auto) Neut % (Auto) Lymph % (Auto) [place] % (Auto) Eos % (Auto) Baso % (Auto) Lymph # (Auto) [place] # (Auto) Eos # (Auto) Baso # (Auto) Abs Immat Gran (auto) Absolute Neuts (auto) Absolute Nucleated RBC Nucleated RBC % (auto) Neutrophils % (Manual) Band Neutrophils % Lymphocytes % (Manual) Monocytes % (Manual) Metamyelocytes % Myelocytes % Promyelocytes % Abs Neuts (Manual) Lymphocytes # (Manual) Atyp Lymphs # (Manual) Monocytes # (Manual) Metamyelocytes # Myelocytes # Promyelocytes # Nucleated RBCs Toxic Granulation Toxic Vacuolation Dohle Bodies Platelet Estimate Large Platelets Plt Morphology Comment RBC Morphology Polychromasia Basophilic Stippling Macrocytosis Ovalocytes Talisha Cells Schistocytes PT INR VBG pH VBG pCO2 VBG pO2 VBG HCO3 VBG O2 Saturation VBG Base Excess Sodium Potassium Chloride Carbon Dioxide Anion Gap BUN Creatinine Estim Creat Clear Calc Estimated GFR Random Glucose Lactic Acid Lactic Acid F/U @ 2Hr 7.9 H* Lactic Acid F/U @ 4Hr Calcium Phosphorus Magnesium Total Bilirubin AST ALT Alkaline Phosphatase Total Protein Albumin TSH 0.92 C. difficile Tox B Gene NEGATIVE 08/30/24 08/30/24 08/30/24 11:17 12:05 12:17 WBC 9.4 RBC 2.78 L Hgb 9.9 L Hct 28.8 L MCV 103.6 H MCH 35.6 H MCHC 34.4 RDW 18.8 H Plt Count 102 L D MPV 10.5 Immature Gran % (Auto) Cancelled Neut % (Auto) Cancelled Lymph % (Auto) Cancelled [place] % (Auto) Cancelled Eos % (Auto) Cancelled Baso % (Auto) Cancelled Lymph # (Auto) Cancelled [place] # (Auto) Cancelled Eos # (Auto) Cancelled Baso # (Auto) Cancelled Abs Immat Gran (auto) Cancelled Absolute Neuts (auto) Cancelled Absolute Nucleated RBC 0.050 H Nucleated RBC % (auto) 0.5 H Neutrophils % (Manual) 41 L Band Neutrophils % 38 H Lymphocytes % (Manual) 10 L Monocytes % (Manual) Metamyelocytes % 7 Myelocytes % 3 Promyelocytes % 1 Abs Neuts (Manual) 7.4 Lymphocytes # (Manual) 0.9 L Atyp Lymphs # (Manual) Monocytes # (Manual) Metamyelocytes # 0.7 Myelocytes # 0.3 Promyelocytes # 0.1 Nucleated RBCs 1 H Toxic Granulation Toxic Vacuolation Dohle Bodies Platelet Estimate DECREASED Large Platelets Plt Morphology Comment NORMAL RBC Morphology NOTED Polychromasia 1+ (0-2) Basophilic Stippling Macrocytosis 1+ (5-14) Ovalocytes [place] Cells 1+ (0-2) Schistocytes 1+ (0-2) PT INR VBG pH 7.35 VBG pCO2 40 VBG pO2 63 VBG HCO3 22 VBG O2 Saturation 85.0 VBG Base Excess -2.6 Sodium 144 Potassium 3.0 L Chloride 106 Carbon Dioxide 22 Anion Gap 19 BUN 21 H Creatinine 1.80 H Estim Creat Clear Calc 51.5 Estimated GFR 38 Random Glucose 101 Lactic Acid 5.8 H* Lactic Acid F/U @ 2Hr Lactic Acid F/U @ 4Hr 6.0 H* Calcium 9.0 Phosphorus 4.7 H Magnesium 2.1 Total Bilirubin 6.0 H AST 74 H ALT 39 Alkaline Phosphatase 81 Total Protein 5.8 L Albumin 3.9 TSH C. difficile Tox B Gene 08/30/24 08/30/24 08/30/24 14:32 16:47 18:04 WBC RBC Hgb Hct MCV MCH MCHC RDW Plt Count MPV Immature Gran % (Auto) Neut % (Auto) Lymph % (Auto) [place] % (Auto) Eos % (Auto) Baso % (Auto) Lymph # (Auto) [place] # (Auto) Eos # (Auto) Baso # (Auto) Abs Immat Gran (auto) Absolute Neuts (auto) Absolute Nucleated RBC Nucleated RBC % (auto) Neutrophils % (Manual) Band Neutrophils % Lymphocytes % (Manual) Monocytes % (Manual) Metamyelocytes % Myelocytes % Promyelocytes % Abs Neuts (Manual) Lymphocytes # (Manual) Atyp Lymphs # (Manual) Monocytes # (Manual) Metamyelocytes # Myelocytes # Promyelocytes # Nucleated RBCs Toxic Granulation Toxic Vacuolation Dohle Bodies Platelet Estimate Large Platelets Plt Morphology Comment RBC Morphology Polychromasia Basophilic Stippling Macrocytosis Ovalocytes Talisha Cells Schistocytes PT INR VBG pH VBG pCO2 VBG pO2 VBG HCO3 VBG O2 Saturation VBG Base Excess Sodium 142 Potassium 3.9 D Chloride 105 Carbon Dioxide 22 Anion Gap 19 BUN 23 H Creatinine 1.48 H Estim Creat Clear Calc 62.7 Estimated GFR 48 Random Glucose 93 Lactic Acid Lactic Acid F/U @ 2Hr 5.5 H* Lactic Acid F/U @ 4Hr 5.7 H* Calcium 9.5 Phosphorus 5.8 H Magnesium 1.9 Total Bilirubin 6.9 H AST 77 H ALT 41 H Alkaline Phosphatase 68 Total Protein 5.9 L Albumin 3.8 TSH C. difficile Tox B Gene 08/31/24 05:06 WBC 19.1 H RBC 3.04 L Hgb 10.4 L Hct 32.2 L MCV 105.9 H MCH 34.2 H MCHC 32.3 RDW 19.1 H Plt Count 102 L MPV 10.8 Immature Gran % (Auto) Cancelled Neut % (Auto) Cancelled Lymph % (Auto) Cancelled [place] % (Auto) Cancelled Eos % (Auto) Cancelled Baso % (Auto) Cancelled Lymph # (Auto) Cancelled [place] # (Auto) Cancelled Eos # (Auto) Cancelled Baso # (Auto) Cancelled Abs Immat Gran (auto) Cancelled Absolute Neuts (auto) Cancelled Absolute Nucleated RBC 0.000 Nucleated RBC % (auto) 0.0 Neutrophils % (Manual) 33 L Band Neutrophils % 43 H Lymphocytes % (Manual) 4 L Monocytes % (Manual) 10 Metamyelocytes % 8 Myelocytes % 2 Promyelocytes % Abs Neuts (Manual) 14.5 H Lymphocytes # (Manual) 0.8 L Atyp Lymphs # (Manual) 0.4 Monocytes # (Manual) 1.9 H Metamyelocytes # 1.5 Myelocytes # 0.4 Promyelocytes # Nucleated RBCs Toxic Granulation PRESENT Toxic Vacuolation PRESENT Dohle Bodies PRESENT Platelet Estimate DECREASED Large Platelets PRESENT Plt Morphology Comment NOTED RBC Morphology NOTED Polychromasia 1+ (0-2) Basophilic Stippling 1+ (0-2) Macrocytosis Ovalocytes 1+ (5-14) [place] Cells 1+ (0-2) Schistocytes 1+ (0-2) PT 32.1 H D INR 2.7 H VBG pH 7.36 VBG pCO2 42 VBG pO2 66 VBG HCO3 24 VBG O2 Saturation 89.0 VBG Base Excess -0.8 Sodium 142 Potassium 3.8 Chloride 102 Carbon Dioxide 22 Anion Gap 22 H BUN 20 H Creatinine 0.83 Estim Creat Clear Calc 111.8 Estimated GFR > 60 Random Glucose 140 H Lactic Acid Lactic Acid F/U @ 2Hr Lactic Acid F/U @ 4Hr Calcium 9.1 Phosphorus 3.6 Magnesium 2.0 Total Bilirubin 7.4 H AST 58 H ALT 39 Alkaline Phosphatase 49 Total Protein 5.6 L Albumin 3.5 TSH C. difficile Tox B Gene Microbiology Microbiology Results: Microbiology 08/23/24 17:45 Urine clean catch Urine Culture - Final Progress Note: A&P Assessment and plan (1) Ischemia, bowel: Status: Acute (2) Shock: Status: Acute (3) Aspiration into airway: Status: Acute (4) Acute hypoxic respiratory failure: Status: Acute Plan Patient is a 64 Y M w/ alcohol use disorder presenting initially to emergency department on 08/23 w/ signs/symptoms c/f decompensated cirrhosis, found to have hyponatremia, admitted ICU, subsequently transferred to medicine floor; hospital course c/b persistent encephalopathy; on 08/29 PM, patient suffered aspiration event, intubated, transferred to ICU; CT lazaro-scans c/f bowel ischemia; ICU course c/b shock, likely distributive, necessitating high-dose vasopressors N: intubated, sedated w/ propofol, fentanyl gtt, wean as tolerated; encephalopathy, likely toxic-metabolic; to consider MRI brain if hemodynamically stable CV: shock, likely distributive, norepinephrine, vasopressin gtt, wean as tolerated R: intubated in setting of aspiration, wean as tolerated GI: alcohol use disorder, c/b likely cirrhosis, charcterized by ascites; CT A/P 08/29 c/f bowel ischemia, empiric antibiotics, appreciate general surgery recommendations : acute renal insufficiency, improving, to monitor renal indices, electrolytes very closely H: DVT prophylaxis w/ heparin SQ; mechanical devices ID: shock, likely distributive, to follow-up blood cultures, empiric vancomycin, zosyn E: to monitor hypo-/hyper-glycemia P: alcohol use disorder Quality Stroke Does the patient have a stroke diagnosis?: No VTE Prior VTE?: No VTE Risk Level:: Medical - moderate - high VTE Device Contraindication: N/A - Device Ordered VTE Drug Contraindication: N/A - Med Ordered
[2024-08-31] MEDS: Chlorhexidine Gluc Oral Rinse 15 ML MOUTHWASH BUCCAL (08:37)
[2024-08-31] MEDS: Thiamine HCL 100 MG in 0.9 % Sodium Chloride 100 ML 202 MG IV (08:37)
[2024-08-31] MEDS: Heparin Sodium,Porcine 5,000 UNIT/ML VIAL 5000 UNIT SUBCUT (08:38)
[2024-08-31] MEDS: 0.9 % Sodium Chloride Flush 3 ML SYRINGE IVFLUSH (08:41)
[2024-08-31] MEDS: Folic Acid 1 MG in 0.9 % Sodium Chloride 50 ML 100.4 MG IV (09:10)
[2024-08-31] MEDS: vancomycin HCL 1,250 MG in 0.9 % Sodium Chloride 250 ML 166.67 MG IV (09:18)
[2024-08-31] MEDS: fentaNYL citrate/NS 1,000 MCG/100 ML PLAST..BAG 5 MCG IVCONT (09:50)
--- NOTE | 2024-08-31 11:04 | W.MHC.ACPN ---
Advanced Care Planning Note Advanced Care Planning Note Discussed with: family member(s) Time spent (in minutes): 15 Narrative: Mr. Ann's daughter and sons were at his bedside; I offered them updates, which included some mild improvement of Mr. Ann's vasopressor requirement; they expressed that they were concerned Mr. Ann may never recover in a meaningful way and felt that at this juncture, Mr. Ann's philosophy of care should be transitioned to comfort-focused care Problems Discussed (1) Ischemia, bowel: (2) Shock: (3) Aspiration into airway: (4) Acute hypoxic respiratory failure:
[2024-08-31] MEDS: Scopolamine 1.5 MG PATCH.TD.3 TRANSDERMA (11:29)
[2024-08-31] MEDS: LORazepam 2 MG/ML VIAL 1 MG IVPUSH (11:29)
[2024-08-31] MEDS: Morphine Sulfate 2 MG/ML CARTRIDGE IVPUSH (11:37)
--- NOTE | 2024-08-31 11:46 | PC.RT ---
patient terminlly extubated as per MD order
[2024-08-31] MEDS: HYDROmorphone HCl 0.5 MG/0.5 ML SYRINGE 1 MG IVPUSH (11:48)
--- NOTE | 2024-08-31 11:52 | P.DN_ITS ---
Discharge Sum: Prov Provider Primary care physician: Unknown Physician Pronouncing clinician: Khushi Ross Discharge Sum: Diag Contributing Factors (1) Ischemia, bowel: (2) Shock: (3) Aspiration into airway: (4) Acute hypoxic respiratory failure: Discharge Sum: Summary Date and Time Date of admission: 08/23/24 12:28 Date of : 08/31/24 Time of : 11:58 Summary Details: Mr. Ann is a 64-year-old male with alcohol use disorder presenting initially to the emergency department on 08/23 with signs/symptoms concerning for decompensated cirrhosis, found to have hyponatremia, and admitted ICU; Mr. Ann was subsequently transferred to medicine floor after resolution of hyponatremia; however, Mr. Ann's hospital course was complicated by persistent encephalopathy; on 08/29 PM, Mr. Ann suffered an aspiration event and was subsequently intubated and transferred to ICU; an infectious work-up was initiated, including a CT abdomen that was concerning for bowel ischemia; Mr. Ann's ICU course was complicated by shock, necessitating high-dose vasopressors, and acute renal insufficiency; Mr. Ann's critical clinical status unfortunately precluded him from surgical intervention; on 08/31, Mr. Ann's daughter and sons decided to change Mr. Ann's philosophy of care to comfort- focused care; Mr. Ann later that day at 11:58 with his family at his bedside Additional Data Confirmation of as documented by pronouncing clinician: no pulse, no respirations, no heart sounds and pupils fixed and dilated Family: at bedside Attending physician: Obed Winn MD
[2024-09-03 09:33] LABS: Anti Nuclear Antibody Screen NEGATIVE (NEGATIVE)
== END 2024-08-31 13:06 | disposition expired | DRG 280 ==
LOC: HO.ED 11:58 → HO.EDOVER 12:36 → HO.ICU 13:03 → HO.IMC 08-25 12:41 → HO.ICU 08-29 23:00
PROVIDERS: Internal Medicine; Internal Medicine Critical Care Medicine; Internal Medicine Gastroenterology; Internal Medicine Hypertension Specialist; Nurse Practitioner Family; Physician Assistant Medical; Admitting Provider Internal Medicine Critical Care Medicine; Emergency Provider Emergency Medicine; Visit Provider Internal Medicine Critical Care Medicine
DX: K70.31 Alcoholic cirrhosis of liver with ascites (principal); K70.11 Alcoholic hepatitis with ascites; J96.01 Acute respiratory failure with hypoxia; R57.8 Other shock; J69.0 Pneumonitis due to inhalation of food and vomit; G92.8 Other toxic encephalopathy; K55.9 Vascular disorder of intestine, unspecified; Z51.5 Encounter for palliative care; D61.818 Other pancytopenia; J98.11 Atelectasis; I10 Essential (primary) hypertension; F10.239 Alcohol dependence with withdrawal, unspecified; K76.0 Fatty (change of) liver, not elsewhere classified; K63.89 Other specified diseases of intestine; K76.82 Hepatic encephalopathy; E87.1 Hypo-osmolality and hyponatremia; E87.6 Hypokalemia; R33.9 Retention of urine, unspecified; Z86.73 Personal history of transient ischemic attack (TIA), and cerebral infarction without residual deficits
CPT/HCPCS: 36415; 70450; 71045; 71250; 74176; 76705; 80048; 80053; 80307; 81001; 81256; 82040; 82140; 82248; 82330; 82375; 82533; 82570; 82607; 82728; 82746; 82803; 82947; 83540; 83605; 83615; 83690; 83735; 83930; 83935; 84100; 84155; 84156; 84295; 84300; 84443; 84550; 85007; 85014; 85018; 85025; 85027; 85610; 86038; 86704; 86706; 86707; 86803; 86850; 86900; 86901; 86927; 87040; 87086; 87340; 87350; 87493; 92610; 93005; 94002; 94003; 94799; 97162; 99285; C1758; J0131; J0696; J1171; J1644; J1650; J1720; J1940; J2060; J2270; J2470; J2543; J2560; J2598; J2704; J3010; J3370; J3371; J3411; J3475; J3480; J7120; P9047

== ENCOUNTER → 2024-08-23 10:42 | Outpatient (BNV) | payer OTHER, SELFPAY | PROVIDERS: Admitting Provider Internal Medicine Critical Care Medicine; Emergency Provider Emergency Medicine; Visit Provider Internal Medicine | DX: R94.31 Abnormal electrocardiogram [ECG] [EKG] (principal) | CPT/HCPCS: 93010 ==

== ENCOUNTER → 2024-08-23 12:28 | Outpatient (BNV) | payer OTHER, SELFPAY | PROVIDERS: Admitting Provider Internal Medicine Critical Care Medicine; Emergency Provider Emergency Medicine; Visit Provider Urology | DX: R33.9 Retention of urine, unspecified (principal) | CPT/HCPCS: 99222 ==

== ENCOUNTER → 2024-08-23 12:28 | Outpatient (BNV) | payer OTHER, SELFPAY | PROVIDERS: Admitting Provider Internal Medicine Critical Care Medicine; Emergency Provider Emergency Medicine; Visit Provider Nurse Practitioner Family | DX: E87.1 Hypo-osmolality and hyponatremia (principal) | CPT/HCPCS: 99222; 99232 ==

== ENCOUNTER → 2024-08-23 12:28 | Outpatient (BNV) | payer OTHER, SELFPAY | PROVIDERS: Admitting Provider Internal Medicine Critical Care Medicine; Emergency Provider Emergency Medicine; Visit Provider Internal Medicine | DX: K70.10 Alcoholic hepatitis without ascites (principal); D61.818 Other pancytopenia | CPT/HCPCS: 99232; 99499 ==

== ENCOUNTER → 2024-08-23 12:28 | Outpatient (BNV) | payer OTHER, SELFPAY | PROVIDERS: Admitting Provider Internal Medicine Critical Care Medicine; Emergency Provider Emergency Medicine; Visit Provider Physician Assistant Surgical | DX: K63.89 Other specified diseases of intestine (principal); K55.9 Vascular disorder of intestine, unspecified | CPT/HCPCS: 99223 ==

== ENCOUNTER → 2024-08-23 12:28 | Outpatient (BNV) | payer OTHER, SELFPAY | PROVIDERS: Admitting Provider Internal Medicine Critical Care Medicine; Emergency Provider Emergency Medicine; Visit Provider Internal Medicine Critical Care Medicine | DX: K70.10 Alcoholic hepatitis without ascites (principal); E87.1 Hypo-osmolality and hyponatremia | CPT/HCPCS: 31500; 36556; 36620; 43762; 99222; 99223; 99231; 99238; 99291; 99292 ==

== ENCOUNTER → 2024-08-23 12:28 | Outpatient (BNV) | payer OTHER, SELFPAY | PROVIDERS: Admitting Provider Internal Medicine Critical Care Medicine; Emergency Provider Emergency Medicine; Visit Provider Internal Medicine Gastroenterology | DX: K70.11 Alcoholic hepatitis with ascites (principal); K70.31 Alcoholic cirrhosis of liver with ascites | CPT/HCPCS: 99232 ==